=== PATIENT | male | born 1960 | race Two or more races ===

== ENCOUNTER 2017-11-16 19:12 | Inpatient (IN) | payer OTHER ==
[~2017-11-16] VITALS: Ht 177.8 cm; Wt 72.6 kg
[2017-11-16 19:15] VITALS: BP 121/99
[2017-11-16] MEDS ORDERED: Albuterol ud Inhalation HHN ONE (19:15)
[2017-11-16 19:44] LABS: BASOPHILS % (AUTO) 0.9 % (0.0-2.0); EOSINOPHILS % (AUTO) 4.6 % (0.0-3.0); HEMATOCRIT 39.4 % (42.0-52.0); HEMOGLOBIN 12.5 G/DL (14.2-18.0); LYMPHOCYTES % (AUTO) 20.5 % (20.0-45.0); MEAN CORPUSCULAR VOLUME 81 FL (80-99); MONOCYTES % (AUTO) 9.4 % (1.0-10.0); NEUTROPHILS % (AUTO) 64.6 % (45.0-75.0); PLATELET COUNT 188 K/UL (150-450); RED BLOOD COUNT 4.87 M/UL (4.70-6.10); WHITE BLOOD COUNT 4.8 K/UL (4.8-10.8)
[2017-11-16 19:56] LABS: ANION GAP 5 mmol/L (5-15); BLOOD UREA NITROGEN 20 mg/dL (7-18); CALCIUM 8.3 MG/DL (8.5-10.1); CARBON DIOXIDE 27 MMOL/L (21-32); CHLORIDE 101 MMOL/L (98-107); CREATININE 1.2 MG/DL (0.55-1.30); POTASSIUM 4.2 MMOL/L (3.5-5.1); SODIUM 133 MMOL/L (136-145)
--- NOTE | 2017-11-16 20:03 | Emergency Room Report ---
History of Present Illness General Chief Complaint: Shortness of breath Source: Patient, EMS Present Illness HPI Patient is a 57-year-old male who presented after increased difficulty breathing. Patient prior history of congestive heart failure. Patient had recently been hospitalized at [facility]. He was noted to have increased work of breathing. Patient had been having increased chest tightness. The patient onset of symptoms approximately 2 weeks ago. Allergies: Coded Allergies: No Known Allergies (Unverified , 11/16/17) Patient History Past Medical History: see triage record, CHF, HIV Reviewed Nursing Documentation: PMH: Agreed; PSxH: Agreed Nursing Documentation-PMH Hx Cardiac Problems: Yes - chf,hep c, hiv Review of Systems All Other Systems: negative except mentioned in HPI Physical Exam Vital Signs Date Time Temp Pulse Resp B/P (MAP) Pulse Ox O2 Delivery O2 Flow Rate FiO2 11/16/17 19:06 98.4 124 22 124/90 99 Room Air 98.4 11/16/17 19:46 21 Sp02 EP Interpretation: reviewed, normal General Appearance: normal inspection, alert, GCS 15, moderate distress, Chronically Ill Head: atraumatic ENT: normal ENT inspection, hearing grossly normal, normal voice Neck: normal inspection, full range of motion, supple, no bony tend, limited range of motion Respiratory: normal inspection, no respiratory distress, no retraction, wheezing Cardiovascular #1: regular rate, rhythm, edema - 3 + edema Gastrointestinal: normal inspection, normal bowel sounds, non tender, soft, no guarding, no hernia Genitourinary: no CVA tenderness Musculoskeletal: normal inspection, back normal, swelling Neurologic: normal inspection, alert, oriented x3, responsive, speech normal Psychiatric: normal inspection, judgement/insight normal, mood/affect normal Skin: no rash, other - edema Medical Decision Making Diagnostic Impression: Primary Impression: CHF exacerbation Additional Impressions: HIV (human immunodeficiency virus infection) Intraventricular conduction defect ER Course Differential included but was not limited to anemia, pneumonia, pneumothorax, myocardial infarction, pericardial effusion, congestive heart failure, acidosis. Because of complexity of patient's case laboratory testing and imaging studies were ordered. EKG interpreted by me showed sinus tachycardia with right axis deviation and intraventricular block. The patient's laboratory testing was notable for markedly elevated BNP and a negative troponin. Repeat EKG was unchanged from initial EKG. The patient was given IV Lasix as well as breathing treatments. The patient was noted to have improvement in his symptoms. Chest x-ray one view interpreted by me showed cardiomegaly with no definite infiltrates.Dr. Arcadio Rodriguez was contacted for inpatient management due to panel physician Labs Test 11/16/17 19:35 White Blood Count 4.8 K/UL (4.8-10.8) Red Blood Count 4.87 M/UL (4.70-6.10) Hemoglobin 12.5 G/DL (14.2-18.0) Hematocrit 39.4 % (42.0-52.0) Mean Corpuscular Volume 81 FL (80-99) Mean Corpuscular Hemoglobin 25.6 PG (27.0-31.0) Mean Corpuscular Hemoglobin Concent 31.7 G/DL (32.0-36.0) Red Cell Distribution Width 16.0 % (11.6-14.8) Platelet Count 188 K/UL (150-450) Mean Platelet Volume 7.7 FL (6.5-10.1) Neutrophils (%) (Auto) 64.6 % (45.0-75.0) Lymphocytes (%) (Auto) 20.5 % (20.0-45.0) Monocytes (%) (Auto) 9.4 % (1.0-10.0) Eosinophils (%) (Auto) 4.6 % (0.0-3.0) Basophils (%) (Auto) 0.9 % (0.0-2.0) Sodium Level 133 MMOL/L (136-145) Potassium Level 4.2 MMOL/L (3.5-5.1) Chloride Level 101 MMOL/L (98-107) Carbon Dioxide Level 27 MMOL/L (21-32) Anion Gap 5 mmol/L (5-15) Blood Urea Nitrogen 20 mg/dL (7-18) Creatinine 1.2 MG/DL (0.55-1.30) Estimat Glomerular Filtration Rate > 60 mL/min (>60) Glucose Level 126 MG/DL (74-106) Calcium Level 8.3 MG/DL (8.5-10.1) Total Bilirubin 0.6 MG/DL (0.2-1.0) Aspartate Amino Transf (AST/SGOT) 45 U/L (15-37) Alanine Aminotransferase (ALT/SGPT) 42 U/L (12-78) Alkaline Phosphatase 91 U/L (46-116) Total Creatine Kinase 155 U/L (26-308) Creatine Kinase MB 1.3 NG/ML (0.0-3.6) Creatine Kinase MB Relative Index 0.8 Troponin I 0.038 ng/mL (0.000-0.056) Pro-B-Type Natriuretic Peptide 5618 pg/mL (0-125) Total Protein 8.8 G/DL (6.4-8.2) Albumin 2.9 G/DL (3.4-5.0) Globulin 5.9 g/dL Albumin/Globulin Ratio 0.5 (1.0-2.7) Lipase 259 U/L (73-393) EKG Diagnostic Results Rate: tachycardiac Rhythm: NSR ST Segments: no acute changes Last Vital Signs Date Time Temp Pulse Resp B/P (MAP) Pulse Ox O2 Delivery O2 Flow Rate FiO2 11/16/17 19:51 120 24 99 Room Air 21 11/16/17 19:15 97.6 121/99 97.6 Status: unchanged Condition: Stable Raman Smith MD Nov 16, 2017 20:03
[2017-11-16 20:09] LABS: ALANINE AMINOTRANSFERASE 42 U/L (12-78); ALBUMIN 2.9 G/DL (3.4-5.0); ALBUMIN/GLOBULIN RATIO 0.5 (1.0-2.7); ALKALINE PHOSPHATASE 91 U/L (46-116); ASPARTATE AMINO TRANSFERASE 45 U/L (15-37); BILIRUBIN,TOTAL 0.6 MG/DL (0.2-1.0); CKMB 1.3 NG/ML (0.0-3.6); CREATINE KINASE 155 U/L (26-308)
[2017-11-16] MEDS ORDERED: Nitroglycerin Subl 0.4mg tab SL PRN (20:15)
[2017-11-16 20:20] VITALS: BP 134/74
[2017-11-16] MEDS ORDERED: GLUCOSAMINE1000 M1 PO (20:59)
[2017-11-16] MEDS ORDERED: VITAMIN C500 M1 ORAL (20:59)
[2017-11-16] MEDS ORDERED: VITAMIN D1000 UNI1 ORAL (20:59)
[2017-11-16] MEDS ORDERED: CYMBALTA30 MG ORAL (20:59)
[2017-11-16] MEDS ORDERED: MULTIVITAMINS1 EAC2 ORAL (20:59)
[2017-11-16] MEDS ORDERED: PREZCOBIX 8001 EACH PO (20:59)
[2017-11-16] MEDS ORDERED: FUROSEMIDE40 MG ORAL (20:59)
[2017-11-16] MEDS ORDERED: TRIUMEQ PO (21:02)
[2017-11-16] MEDS ORDERED: Aspirin Baby 81mg ORAL ONE (21:30)
[2017-11-16] MEDS ORDERED: Metoprolol 5mg/5ml Inj IVP SCH (21:30)
[2017-11-16] MEDS ORDERED: Miralax 17gm pkt ORAL PRN (21:45)
[2017-11-16] MEDS ORDERED: Albuterol/Ipratropium 3ml neb HHN PRN (21:45)
[2017-11-17 07:53] LABS: ALANINE AMINOTRANSFERASE 37 U/L (12-78); ALBUMIN 2.7 G/DL (3.4-5.0); ALBUMIN/GLOBULIN RATIO 0.5 (1.0-2.7); ALKALINE PHOSPHATASE 87 U/L (46-116); ANION GAP 5 mmol/L (5-15); ASPARTATE AMINO TRANSFERASE 42 U/L (15-37); BILIRUBIN,TOTAL 0.6 MG/DL (0.2-1.0); BLOOD UREA NITROGEN 21 mg/dL (7-18); CALCIUM 8.3 MG/DL (8.5-10.1); CARBON DIOXIDE 28 MMOL/L (21-32); CHLORIDE 103 MMOL/L (98-107); CREATININE 1.3 MG/DL (0.55-1.30); LACTATE DEHYDROGENASE 285 U/L (81-234); POTASSIUM 4.4 MMOL/L (3.5-5.1); SODIUM 136 MMOL/L (136-145)
[2017-11-17 07:53] LABS: HEMATOCRIT 41.3 % (42.0-52.0); HEMOGLOBIN 12.8 G/DL (14.2-18.0); MEAN CORPUSCULAR VOLUME 79 FL (80-99); PLATELET COUNT 183 K/UL (150-450); RED BLOOD COUNT 5.21 M/UL (4.70-6.10); RED CELL DISTRIBUTION WIDTH 16.4 % (11.6-14.8); WHITE BLOOD COUNT 3.1 K/UL (4.8-10.8)
[2017-11-17] MEDS: DULoxetine 30mg cap ORAL SCH (08:19)
[2017-11-17] MEDS: Aspirin Baby 81mg ORAL SCH (08:20)
[2017-11-17] MEDS: Heparin 5000 units/ml inj SUBQ SCH ×2 (08:21→20:12)
[2017-11-17 08:22] LABS: PHOSPHORUS 3.5 MG/DL (2.5-4.9)
--- NOTE | 2017-11-17 10:36 | Diagnostic Imaging Report ---
Indication: Dyspnea Comparison: None A single view chest radiograph was obtained. Findings: Cardiomediastinal appearance is slightly prominent but may be within normal limits for age. The lungs are clear. Pulmonary vascularity is appropriate. The diaphragmatic contour is smooth and costophrenic angles are sharp. No pleural effusions are identified. The bones are osteopenic. Impression: No acute findings
--- NOTE | 2017-11-17 11:47 | Consultation ---
History of Present Illness General Date patient seen: Nov 17, 2017 Chief Complaint: Upper Respiratory Illness Present Illness HPI 57-year-old male with hx of CHF, HIV, Hep C presented to [place] ER with CC of difficulty breathing. Patient had recently been hospitalized at [facility]. Patient had been having increased chest tightness. The patient onset of symptoms approximately 2 weeks ago. Pt is admitted to telemetry for further treatment. Allergies: Coded Allergies: No Known Allergies (Unverified , 11/16/17) Medication History Scheduled Ascorbic Acid* (Vitamin C*), 500 MG ORAL DAILY, (Reported) Cholecalciferol (Vitamin D3)* (Vitamin D*), 1,000 UNIT ORAL DAILY, (Reported) Darunavir/Cobicistat (Prezcobix 800 mg-150 mg Tablet), 1 EACH PO DAILY, ( Reported) Duloxetine Hcl* (Cymbalta*), 30 MG ORAL DAILY, (Reported) Furosemide* (Lasix*), 40 MG ORAL TWICE A DAY, (Reported) Glucosamine Sulfate 2KCL (Glucosamine), 1,000 MG PO DAILY, (Reported) Multivitamins* (Multivitamins*), 1 TAB ORAL DAILY, (Reported) [Triumeq], 1 TAB PO DAILY, (Reported) Patient History Healthcare decision maker sister Resuscitation status Full Code Advanced Directive on File Review of Systems Constitutional: Reports: malaise, weakness Respiratory: Reports: shortness of breath All Other Systems: negative except mentioned in HPI Physical Exam General Appearance: cachetic Lines, tubes and drains: peripheral HEENT: normocephalic, atraumatic Neck: non-tender, normal alignment Respiratory/Chest: chest wall non-tender, lungs clear Breasts: no masses Cardiovascular/Chest: normal peripheral pulses, normal rate Abdomen: normal bowel sounds, non tender Genitourinary/Rectal: normal genital exam Extremities: normal range of motion Neurologic: patcher helper II-XII grossly normal Last 24 Hour Vital Signs Date Time Temp Pulse Resp B/P (MAP) Pulse Ox O2 Delivery O2 Flow Rate FiO2 11/17/17 09:00 Room Air 11/17/17 07:09 109 20 Room Air 21 11/17/17 04:00 110 11/17/17 00:39 Room Air 11/17/17 00:00 107 11/16/17 22:04 97.6 120 20 114/83 100 Room Air 21 97.6 11/16/17 21:46 119 114/83 11/16/17 20:23 134/75 11/16/17 20:20 120 20 134/74 100 Room Air 11/16/17 20:02 120 21 99 Room Air 21 11/16/17 19:51 120 24 99 Room Air 21 11/16/17 19:46 120 24 Room Air 21 11/16/17 19:15 97.6 122 19 121/99 94 Room Air 97.6 11/16/17 19:15 122 19 Room Air 11/16/17 19:06 98.4 124 22 124/90 99 Room Air 98.4 Intake and Output 11/16/17 11/17/17 19:00 07:00 Output Total 1100 ml Balance -1100 ml Output Urine Total 1100 ml # Voids 6 Laboratory Tests Test 11/16/17 19:35 11/17/17 04:00 11/17/17 07:05 White Blood Count 4.8 K/UL (4.8-10.8) 3.1 K/UL (4.8-10.8) L Red Blood Count 4.87 M/UL (4.70-6.10) 5.21 M/UL (4.70-6.10) Hemoglobin 12.5 G/DL (14.2-18.0) L 12.8 G/DL (14.2-18.0) L Hematocrit 39.4 % (42.0-52.0) L 41.3 % (42.0-52.0) L Mean Corpuscular Volume 81 FL (80-99) 79 FL (80-99) L Mean Corpuscular Hemoglobin 25.6 PG (27.0-31.0) L 24.6 PG (27.0-31.0) L Mean Corpuscular Hemoglobin Concent 31.7 G/DL (32.0-36.0) L 31.1 G/DL (32.0-36.0) L Red Cell Distribution Width 16.0 % (11.6-14.8) H 16.4 % (11.6-14.8) H Platelet Count 188 K/UL (150-450) 183 K/UL (150-450) Mean Platelet Volume 7.7 FL (6.5-10.1) 9.6 FL (6.5-10.1) Neutrophils (%) (Auto) 64.6 % (45.0-75.0) % (45.0-75.0) Lymphocytes (%) (Auto) 20.5 % (20.0-45.0) % (20.0-45.0) Monocytes (%) (Auto) 9.4 % (1.0-10.0) % (1.0-10.0) Eosinophils (%) (Auto) 4.6 % (0.0-3.0) H % (0.0-3.0) Basophils (%) (Auto) 0.9 % (0.0-2.0) % (0.0-2.0) Sodium Level 133 MMOL/L (136-145) L 136 MMOL/L (136-145) Potassium Level 4.2 MMOL/L (3.5-5.1) 4.4 MMOL/L (3.5-5.1) Chloride Level 101 MMOL/L (98-107) 103 MMOL/L (98-107) Carbon Dioxide Level 27 MMOL/L (21-32) 28 MMOL/L (21-32) Anion Gap 5 mmol/L (5-15) 5 mmol/L (5-15) Blood Urea Nitrogen 20 mg/dL (7-18) H 21 mg/dL (7-18) H Creatinine 1.2 MG/DL (0.55-1.30) 1.3 MG/DL (0.55-1.30) Estimat Glomerular Filtration Rate > 60 mL/min (>60) 56.5 mL/min (>60) Glucose Level 126 MG/DL (74-106) H 96 MG/DL (74-106) Calcium Level 8.3 MG/DL (8.5-10.1) L 8.3 MG/DL (8.5-10.1) L Total Bilirubin 0.6 MG/DL (0.2-1.0) 0.6 MG/DL (0.2-1.0) Aspartate Amino Transf (AST/SGOT) 45 U/L (15-37) H 42 U/L (15-37) H Alanine Aminotransferase (ALT/SGPT) 42 U/L (12-78) 37 U/L (12-78) Alkaline Phosphatase 91 U/L (46-116) 87 U/L (46-116) Total Creatine Kinase 155 U/L (26-308) Creatine Kinase MB 1.3 NG/ML (0.0-3.6) Creatine Kinase MB Relative Index 0.8 Troponin I 0.038 ng/mL (0.000-0.056) 0.017 ng/mL (0.000-0.056) Pro-B-Type Natriuretic Peptide 5618 pg/mL (0-125) H 5299 pg/mL (0-125) H Total Protein 8.8 G/DL (6.4-8.2) H 8.1 G/DL (6.4-8.2) Albumin 2.9 G/DL (3.4-5.0) L 2.7 G/DL (3.4-5.0) L Globulin 5.9 g/dL 5.4 g/dL Albumin/Globulin Ratio 0.5 (1.0-2.7) L 0.5 (1.0-2.7) L Lipase 259 U/L (73-393) Differential Total Cells Counted 100 Neutrophils % (Manual) 50 % (45-75) Lymphocytes % (Manual) 30 % (20-45) Monocytes % (Manual) 13 % (1-10) H Eosinophils % (Manual) 6 % (0-3) H Basophils % (Manual) 1 % (0-2) Band Neutrophils 0 % (0-8) Platelet Estimate Adequate Platelet Morphology Normal Red Blood Cell Morphology Anisocytosis 1+ Microcytosis 1+ Phosphorus Level 3.5 MG/DL (2.5-4.9) Magnesium Level 1.8 MG/DL (1.8-2.4) Lactate Dehydrogenase 285 U/L (81-234) H Height (Feet): 5 Height (Inches): 10.00 Weight (Pounds): 160 Medications Current Medications Medications (Trade) Dose Ordered Sig/Sidney Route PRN Reason Start Time Stop Time Status Last Admin Dose Admin Acetaminophen (Tylenol) 650 mg Q4H PRN ORAL Fever 11/16/17 21:41 12/16/17 21:40 11/17/17 04:02 Albuterol/ Ipratropium (Albuterol/ Ipratropium) 3 ml Q4H PRN HHN Shortness of Breath 11/16/17 21:45 11/21/17 21:44 Aspirin (ASA) 81 mg DAILY ORAL 11/17/17 09:00 12/17/17 08:59 11/17/17 08:20 Dextrose (Dextrose 50%) 25 ml Q30M PRN IV Hypoglycemia 11/16/17 21:45 12/16/17 21:44 Dextrose (Dextrose 50%) 50 ml Q30M PRN IV Hypoglycemia 11/16/17 21:45 12/16/17 21:44 Diphenhydramine HCl (Benadryl) 25 mg Q6H PRN ORAL Itching 11/17/17 08:00 12/17/17 07:59 Duloxetine HCl (Cymbalta) 30 mg DAILY ORAL 11/17/17 09:00 12/17/17 08:59 11/17/17 08:19 Furosemide (Lasix) 40 mg BID IV 11/17/17 09:00 12/16/17 21:59 11/17/17 08:20 Heparin Sodium (Porcine) (Heparin 5000 units/ml) 5,000 units EVERY 12 HOURS SUBQ 11/17/17 09:00 12/17/17 08:59 Metoprolol Tartrate (Lopressor) 5 mg Q5MIN X 3 IVP 11/16/17 21:30 12/16/17 21:29 11/16/17 21:46 Nitroglycerin (Ntg) 0.4 mg Q5M PRN SL Prn Chest Pain 11/16/17 20:15 12/16/17 20:14 11/16/17 20:23 Ondansetron HCl (Zofran) 4 mg Q6H PRN IVP Nausea & Vomiting 11/16/17 21:41 12/16/17 21:40 Polyethylene Glycol (Miralax) 17 gm DAILYPRN PRN ORAL Constipation 11/16/17 21:45 12/16/17 21:44 Temazepam (Restoril) 15 mg HSPRN PRN ORAL Insomnia 11/16/17 21:41 11/23/17 21:40 11/17/17 00:26 Assessment/Plan Problem List: (1) CHF exacerbation ICD Codes: I50.9 - Heart failure, unspecified SNOMED: 07707506 (2) Peripheral edema ICD Codes: R60.9 - Edema, unspecified SNOMED: 670400012 (3) HIV (human immunodeficiency virus infection) ICD Codes: B20 - Human immunodeficiency virus [HIV] disease SNOMED: 81391998 (4) Hepatitis C ICD Codes: B19.20 - Unspecified viral hepatitis C without hepatic coma SNOMED: 09585149 Assessment/Plan echo diuretics venous doppler of legs check BNP ID to see for HIV meds Abdi oTdd MD Nov 17, 2017 11:47
--- NOTE | 2017-11-17 12:28 | Consultation ---
History of Present Illness General Date patient seen: Nov 17, 2017 Chief Complaint: Upper Respiratory Illness Present Illness HPI 57 y/o M with hx of CHF, HIV, Hep C presents to ED on 11/16 with increasing SOB and chest tightness; onset 2 weeks. Of note, recently admitted to [facility]. Afebrile no leukocytosis ID consulted for HIV management. Per patient, dx with HIV in 1993. Endorses his VL remains inthe 200s. He is not sure of his CD4. Takes Triumeq and Prezcobix- I confirmed this regimen with his pharmacy: [facility] in [place]. Allergies: Coded Allergies: No Known Allergies (Unverified , 11/16/17) Medication History Scheduled Ascorbic Acid* (Vitamin C*), 500 MG ORAL DAILY, (Reported) Cholecalciferol (Vitamin D3)* (Vitamin D*), 1,000 UNIT ORAL DAILY, (Reported) Darunavir/Cobicistat (Prezcobix 800 mg-150 mg Tablet), 1 EACH PO DAILY, ( Reported) Duloxetine Hcl* (Cymbalta*), 30 MG ORAL DAILY, (Reported) Furosemide* (Lasix*), 40 MG ORAL TWICE A DAY, (Reported) Glucosamine Sulfate 2KCL (Glucosamine), 1,000 MG PO DAILY, (Reported) Multivitamins* (Multivitamins*), 1 TAB ORAL DAILY, (Reported) [Triumeq], 1 TAB PO DAILY, (Reported) Patient History Healthcare decision maker sister Resuscitation status Full Code Advanced Directive on File Patient History Narrative Pmhx: as above Shx: reviewed Fhx: non contributory Review of Systems All Other Systems: negative except mentioned in HPI Physical Exam Physical Exam Narrative General Appearance: cachetic Lines, tubes and drains: peripheral HEENT: normocephalic, atraumatic Neck: non-tender, normal alignment Respiratory/Chest: chest wall non-tender, lungs clear Cardiovascular/Chest: normal peripheral pulses, normal rate Abdomen: normal bowel sounds, non tender Genitourinary/Rectal: normal genital exam Extremities: normal range of motion Neurologic: car oiler II-XII grossly normal Last 24 Hour Vital Signs Date Time Temp Pulse Resp B/P (MAP) Pulse Ox O2 Delivery O2 Flow Rate FiO2 11/17/17 09:00 Room Air 11/17/17 07:09 109 20 Room Air 21 11/17/17 04:00 110 11/17/17 00:39 Room Air 11/17/17 00:00 107 11/16/17 22:04 97.6 120 20 114/83 100 Room Air 21 97.6 11/16/17 21:46 119 114/83 11/16/17 20:23 134/75 11/16/17 20:20 120 20 134/74 100 Room Air 11/16/17 20:02 120 21 99 Room Air 21 11/16/17 19:51 120 24 99 Room Air 21 11/16/17 19:46 120 24 Room Air 21 11/16/17 19:15 97.6 122 19 121/99 94 Room Air 97.6 11/16/17 19:15 122 19 Room Air 11/16/17 19:06 98.4 124 22 124/90 99 Room Air 98.4 Intake and Output 11/16/17 11/17/17 19:00 07:00 Output Total 1100 ml Balance -1100 ml Output Urine Total 1100 ml # Voids 6 Laboratory Tests Test 11/16/17 19:35 11/17/17 04:00 11/17/17 07:05 White Blood Count 4.8 K/UL (4.8-10.8) 3.1 K/UL (4.8-10.8) L Red Blood Count 4.87 M/UL (4.70-6.10) 5.21 M/UL (4.70-6.10) Hemoglobin 12.5 G/DL (14.2-18.0) L 12.8 G/DL (14.2-18.0) L Hematocrit 39.4 % (42.0-52.0) L 41.3 % (42.0-52.0) L Mean Corpuscular Volume 81 FL (80-99) 79 FL (80-99) L Mean Corpuscular Hemoglobin 25.6 PG (27.0-31.0) L 24.6 PG (27.0-31.0) L Mean Corpuscular Hemoglobin Concent 31.7 G/DL (32.0-36.0) L 31.1 G/DL (32.0-36.0) L Red Cell Distribution Width 16.0 % (11.6-14.8) H 16.4 % (11.6-14.8) H Platelet Count 188 K/UL (150-450) 183 K/UL (150-450) Mean Platelet Volume 7.7 FL (6.5-10.1) 9.6 FL (6.5-10.1) Neutrophils (%) (Auto) 64.6 % (45.0-75.0) % (45.0-75.0) Lymphocytes (%) (Auto) 20.5 % (20.0-45.0) % (20.0-45.0) Monocytes (%) (Auto) 9.4 % (1.0-10.0) % (1.0-10.0) Eosinophils (%) (Auto) 4.6 % (0.0-3.0) H % (0.0-3.0) Basophils (%) (Auto) 0.9 % (0.0-2.0) % (0.0-2.0) Sodium Level 133 MMOL/L (136-145) L 136 MMOL/L (136-145) Potassium Level 4.2 MMOL/L (3.5-5.1) 4.4 MMOL/L (3.5-5.1) Chloride Level 101 MMOL/L (98-107) 103 MMOL/L (98-107) Carbon Dioxide Level 27 MMOL/L (21-32) 28 MMOL/L (21-32) Anion Gap 5 mmol/L (5-15) 5 mmol/L (5-15) Blood Urea Nitrogen 20 mg/dL (7-18) H 21 mg/dL (7-18) H Creatinine 1.2 MG/DL (0.55-1.30) 1.3 MG/DL (0.55-1.30) Estimat Glomerular Filtration Rate > 60 mL/min (>60) 56.5 mL/min (>60) Glucose Level 126 MG/DL (74-106) H 96 MG/DL (74-106) Calcium Level 8.3 MG/DL (8.5-10.1) L 8.3 MG/DL (8.5-10.1) L Total Bilirubin 0.6 MG/DL (0.2-1.0) 0.6 MG/DL (0.2-1.0) Aspartate Amino Transf (AST/SGOT) 45 U/L (15-37) H 42 U/L (15-37) H Alanine Aminotransferase (ALT/SGPT) 42 U/L (12-78) 37 U/L (12-78) Alkaline Phosphatase 91 U/L (46-116) 87 U/L (46-116) Total Creatine Kinase 155 U/L (26-308) Creatine Kinase MB 1.3 NG/ML (0.0-3.6) Creatine Kinase MB Relative Index 0.8 Troponin I 0.038 ng/mL (0.000-0.056) 0.017 ng/mL (0.000-0.056) Pro-B-Type Natriuretic Peptide 5618 pg/mL (0-125) H 5299 pg/mL (0-125) H Total Protein 8.8 G/DL (6.4-8.2) H 8.1 G/DL (6.4-8.2) Albumin 2.9 G/DL (3.4-5.0) L 2.7 G/DL (3.4-5.0) L Globulin 5.9 g/dL 5.4 g/dL Albumin/Globulin Ratio 0.5 (1.0-2.7) L 0.5 (1.0-2.7) L Lipase 259 U/L (73-393) Differential Total Cells Counted 100 Neutrophils % (Manual) 50 % (45-75) Lymphocytes % (Manual) 30 % (20-45) Monocytes % (Manual) 13 % (1-10) H Eosinophils % (Manual) 6 % (0-3) H Basophils % (Manual) 1 % (0-2) Band Neutrophils 0 % (0-8) Platelet Estimate Adequate Platelet Morphology Normal Red Blood Cell Morphology Anisocytosis 1+ Microcytosis 1+ Phosphorus Level 3.5 MG/DL (2.5-4.9) Magnesium Level 1.8 MG/DL (1.8-2.4) Lactate Dehydrogenase 285 U/L (81-234) H Hepatitis A IgM Antibody Pending Hepatitis B Surface Antigen Pending Hepatitis B Core IgM Antibody Pending Hepatitis C Antibody Pending Height (Feet): 5 Height (Inches): 10.00 Weight (Pounds): 160 Medications Current Medications Medications (Trade) Dose Ordered Sig/Sidney Route PRN Reason Start Time Stop Time Status Last Admin Dose Admin Acetaminophen (Tylenol) 650 mg Q4H PRN ORAL Fever 11/16/17 21:41 12/16/17 21:40 11/17/17 04:02 Albuterol/ Ipratropium (Albuterol/ Ipratropium) 3 ml Q4H PRN HHN Shortness of Breath 11/16/17 21:45 11/21/17 21:44 Aspirin (ASA) 81 mg DAILY ORAL 11/17/17 09:00 12/17/17 08:59 11/17/17 08:20 Dextrose (Dextrose 50%) 25 ml Q30M PRN IV Hypoglycemia 11/16/17 21:45 12/16/17 21:44 Dextrose (Dextrose 50%) 50 ml Q30M PRN IV Hypoglycemia 11/16/17 21:45 12/16/17 21:44 Diphenhydramine HCl (Benadryl) 25 mg Q6H PRN ORAL Itching 11/17/17 08:00 12/17/17 07:59 Duloxetine HCl (Cymbalta) 30 mg DAILY ORAL 11/17/17 09:00 12/17/17 08:59 11/17/17 08:19 Furosemide (Lasix) 40 mg BID IV 11/17/17 09:00 12/16/17 21:59 11/17/17 08:20 Heparin Sodium (Porcine) (Heparin 5000 units/ml) 5,000 units EVERY 12 HOURS SUBQ 11/17/17 09:00 12/17/17 08:59 Metoprolol Tartrate (Lopressor) 5 mg Q5MIN X 3 IVP 11/16/17 21:30 12/16/17 21:29 11/16/17 21:46 Nitroglycerin (Ntg) 0.4 mg Q5M PRN SL Prn Chest Pain 11/16/17 20:15 12/16/17 20:14 11/16/17 20:23 Ondansetron HCl (Zofran) 4 mg Q6H PRN IVP Nausea & Vomiting 11/16/17 21:41 12/16/17 21:40 Polyethylene Glycol (Miralax) 17 gm DAILYPRN PRN ORAL Constipation 11/16/17 21:45 12/16/17 21:44 Temazepam (Restoril) 15 mg HSPRN PRN ORAL Insomnia 11/16/17 21:41 11/23/17 21:40 11/17/17 00:26 Assessment/Plan Assessment/Plan Abx: None Assessment: SOB Chest pain -CXR: no acute findings -trops neg x2 Afebrile No leukocytosis HIV (dx 1993)- admits compliance with Regimen -per pt VL ~200s (never undetected), CD4 unknown CHF Hep C Plan: -Resume home Triumeq and Prezcobix -f/u cx -Monitor CBC/CMP, temperatures -CD4, VL Thank you for this consultation. Will continue to follow along with you. Discussed with Shaina Hartley M.D. Nov 17, 2017 12:28
[2017-11-17] MEDS: Sucralfate 1gm tab ORAL SCH (17:18)
--- NOTE | 2017-11-17 18:37 | History & Physical ---
History and Physical History & Physicial Dictated for Int Med - Dr Rodriguez no.[id number] Douglas Anthony MD Nov 17, 2017 18:37
[2017-11-17 20:00] VITALS: BP 109/74
--- NOTE | 2017-11-17 23:30 | History and Physical Report ---
DATE OF ADMISSION: 11/16/2017 CHIEF COMPLAINT: The patient is a 57-year-old male, who presents with complaint of shortness of breath. HISTORY OF PRESENT ILLNESS: The patient was admitted to [facility] two weeks ago. The patient has essentially been living on the streets since that time. The patient states he last evening. The patient began to experience cough and shortness of breath. The patient presented to [facility] Emergency Room. The patient was found to have elevated BNP. The patient is admitted for shortness of breath and acute exacerbation of congestive heart failure. REVIEW OF SYSTEMS: CONSTITUTIONAL: The patient denies weight loss or weight gain. The patient denies fevers or chills. HEENT: The patient denies ear or throat pain. The patient denies headache. CARDIOVASCULAR: The patient denies palpitations or chest pain. The patient complains of shortness of breath as above. The patient complains of nonproductive cough. ABDOMEN: The patient denies nausea, vomiting, diarrhea, or constipation. GENITOURINARY: The patient denies dysuria or increased frequency of urination. NEUROMUSCULAR: The patient denies seizures or generalized weakness. PAST MEDICAL HISTORY: Significant for: 1. Congestive heart failure. 2. HIV, which was diagnosed in 1983. 3. History of hepatitis C. PAST SURGICAL HISTORY: Significant for hemorrhoidectomy. CURRENT MEDICATIONS: 1. Prezcobix one tablet p.o. daily. 2. Cymbalta 30 mg p.o. daily. 3. Lasix 40 mg p.o. daily. 4. Multivitamin p.o. daily. 5. Triumeq one tablet p.o. daily. ALLERGIES: Sulfa. SOCIAL HISTORY: The patient is single and lives alone. The patient denies tobacco use having quit six years ago. The patient denies alcohol use. PHYSICAL EXAMINATION: VITAL SIGNS: Temperature 97.6, respirations 20, pulse elevated at 128, and blood pressure 114/83. GENERAL: The patient is a well-developed and well-nourished male, in no apparent distress. HEENT: Eyes, pupils are equal and responsive to light and accommodation. Extraocular movements are intact. NECK: Supple without lymphadenopathy. CHEST: Lungs are clear to auscultation bilaterally with few crackles in bilateral bases. ABDOMEN: Soft, nontender, and nondistended. Positive bowel sounds. CARDIOVASCULAR: Tachycardic. Regular rhythm. S1 and S2 normal without murmurs, rubs, or gallops. NEUROMUSCULAR: Cranial nerves II through XII are grossly intact without focal deficits. Motor strength is 5/5 bilaterally. Deep tendon reflexes are 2+ plantar. EXTREMITIES: Negative for clubbing, cyanosis, or edema. LABORATORY STUDIES: WBC 4.8, hemoglobin 12.5, hematocrit 39.4, and platelets 188,000. Sodium 132, potassium 4.2, chloride 101, CO2 20, BUN 1.2, and glucose 126. BNP elevated at 5618. Troponin level is pending. ASSESSMENT: This is a 57-year-old male: 1. Shortness of breath. 2. Cough. 3. Acute on chronic exacerbation of congestive heart failure. 4. Human immunodeficiency virus. 5. Hepatitis C. PLAN: 1. Shortness of breath/congestive heart failure. Cardiology consultation obtained with Dr. Bony Cifuentes. Serial BNPs will be performed. The patient is currently receiving Lasix. 2. HIV. An Infectious Disease consultation has been obtained with Dr. Bello. Continue HAART as above. 3. Hepatitis C . Douglas Anthony M.D. DR: CARMENCITA JOB#: [id number] CC:
[2017-11-18 04:00] VITALS: BP 120/92
--- NOTE | 2017-11-18 05:27 | Pulmonology Progress Note ---
Assessment/Plan Problems: (1) CHF exacerbation (2) Peripheral edema (3) HIV (human immunodeficiency virus infection) (4) Hepatitis C Assessment/Plan diuretics check echo optimize cardiac meds cardiology evaluation f/u ID recommendations dvt prophylaxis symptomatic treatment psych to see. Subjective ROS Limited/Unobtainable: No Constitutional: Reports: no symptoms HEENT: Repors: no symptoms Respiratory: Reports: no symptoms Allergies: Coded Allergies: No Known Allergies (Unverified , 11/16/17) Objective Last 24 Hour Vital Signs Date Time Temp Pulse Resp B/P (MAP) Pulse Ox O2 Delivery O2 Flow Rate FiO2 11/18/17 03:37 110 11/17/17 23:58 108 11/17/17 21:00 Room Air 11/17/17 20:00 98.2 107 20 109/74 (86) 100 98.2 11/17/17 19:23 110 11/17/17 19:09 103 20 Room Air 21 11/17/17 16:00 102 11/17/17 12:00 99 11/17/17 09:00 Room Air 11/17/17 08:00 98 11/17/17 07:09 109 20 Room Air 21 Intake and Output 11/17/17 11/18/17 19:00 07:00 Intake Total 780 ml Balance 780 ml Intake Oral 780 ml # Voids 3 # Bowel Movements 1 Objective General Appearance: WD/WN HEENT: normocephalic, atraumatic Respiratory/Chest: chest wall non-tender, lungs clear, normal breath sounds Cardiovascular: normal peripheral pulses, normal rate, regular rhythm Abdomen: normal bowel sounds, no organomegaly Extremities: no clubbing Skin: no lesions Laboratory Tests 11/17/17 07:05: Sodium Level 136, Potassium Level 4.4, Chloride Level 103, Carbon Dioxide Level 28, Anion Gap 5, Blood Urea Nitrogen 21H, Creatinine 1.3, Estimat Glomerular Filtration Rate 56.5, Glucose Level 96, Calcium Level 8.3L, Phosphorus Level 3.5 , Magnesium Level 1.8, Total Bilirubin 0.6, Aspartate Amino Transf (AST/SGOT) 42H, Alanine Aminotransferase (ALT/SGPT) 37, Alkaline Phosphatase 87, Lactate Dehydrogenase 285H, Troponin I 0.017, Pro-B-Type Natriuretic Peptide 5299H, Total Protein 8.1, Albumin 2.7L, Globulin 5.4, Albumin/Globulin Ratio 0.5L, Hepatitis A IgM Antibody [Pending], Hepatitis B Surface Antigen [Pending], Hepatitis B Core IgM Antibody [Pending], Hepatitis C Antibody [Pending] 11/17/17 15:28: Stool Occult Blood [Pending] Current Medications Medications (Trade) Dose Ordered Sig/Sidney Route PRN Reason Start Time Stop Time Status Last Admin Dose Admin Acetaminophen (Tylenol) 650 mg Q4H PRN ORAL Fever 11/16/17 21:41 12/16/17 21:40 11/18/17 05:20 Al Hydroxide/Mg Hydroxide (Mylanta) 30 ml Q6H PRN ORAL heartburn 11/17/17 15:45 12/17/17 15:44 11/18/17 05:05 Albuterol/ Ipratropium (Albuterol/ Ipratropium) 3 ml Q4H PRN HHN Shortness of Breath 11/16/17 21:45 11/21/17 21:44 Aspirin (ASA) 81 mg DAILY ORAL 11/17/17 09:00 12/17/17 08:59 11/17/17 08:20 Dextrose (Dextrose 50%) 25 ml Q30M PRN IV Hypoglycemia 11/16/17 21:45 12/16/17 21:44 Dextrose (Dextrose 50%) 50 ml Q30M PRN IV Hypoglycemia 11/16/17 21:45 12/16/17 21:44 Diphenhydramine HCl (Benadryl) 25 mg Q6H PRN ORAL Itching 11/17/17 08:00 12/17/17 07:59 11/18/17 01:31 Duloxetine HCl (Cymbalta) 30 mg DAILY ORAL 11/17/17 09:00 12/17/17 08:59 11/17/17 08:19 Furosemide (Lasix) 40 mg BID IV 11/17/17 09:00 12/16/17 21:59 11/17/17 17:18 Heparin Sodium (Porcine) (Heparin 5000 units/ml) 5,000 units EVERY 12 HOURS SUBQ 11/17/17 09:00 12/17/17 08:59 Metoprolol Tartrate (Lopressor) 5 mg Q5MIN X 3 IVP 11/16/17 21:30 12/16/17 21:29 11/16/17 21:46 Nitroglycerin (Ntg) 0.4 mg Q5M PRN SL Prn Chest Pain 11/16/17 20:15 12/16/17 20:14 11/16/17 20:23 Non-Formulary Medication (Non-Formulary Med) 1 ea DAILY ORAL 11/17/17 14:00 12/17/17 13:59 UNV Ondansetron HCl (Zofran) 4 mg Q6H PRN IVP Nausea & Vomiting 11/16/17 21:41 12/16/17 21:40 Polyethylene Glycol (Miralax) 17 gm DAILYPRN PRN ORAL Constipation 11/16/17 21:45 12/16/17 21:44 Sucralfate (Carafate) 1 gm TID ORAL 11/17/17 18:00 12/17/17 17:59 11/17/17 17:18 Temazepam (Restoril) 15 mg HSPRN PRN ORAL Insomnia 11/16/17 21:41 11/23/17 21:40 11/17/17 21:30 Abdi Todd MD Nov 18, 2017 05:27
[2017-11-18 06:18] VITALS: BP 114/78
[2017-11-18] MEDS: Morphine Sulfate 2mg/ml Inj IVP PRN ×3 (06:23→23:31)
--- NOTE | 2017-11-18 07:38 | Infectious Diseases Prog Note ---
Assessment/Plan Assessment/Plan Abx: None Assessment: SOB Chest pain -CXR: no acute findings -trops neg x2 Afebrile No leukocytosis HIV (dx 1993)- admits compliance with Regimen -per pt VL ~200s (never undetected), CD4 unknown CHF Hep C Plan: -Continue home Triumeq and Prezcobix -f/u cx -Monitor CBC/CMP, temperatures -CD4, VL Will continue to follow along with you. Subjective Allergies: Coded Allergies: No Known Allergies (Unverified , 11/16/17) Subjective Patient afebrile No Leukocytosis YESENIA Objective Vital Signs Last 24 Hour Vital Signs Date Time Temp Pulse Resp B/P (MAP) Pulse Ox O2 Delivery O2 Flow Rate FiO2 11/18/17 06:18 112 114/78 (90) 100 11/18/17 04:00 98.2 110 20 120/92 (101) 98 98.2 11/18/17 03:37 110 11/17/17 23:58 108 11/17/17 21:00 Room Air 11/17/17 20:00 98.2 107 20 109/74 (86) 100 98.2 11/17/17 19:23 110 11/17/17 19:09 103 20 Room Air 21 11/17/17 16:00 102 11/17/17 12:00 99 11/17/17 09:00 Room Air 11/17/17 08:00 98 Height (Feet): 5 Height (Inches): 10.00 Weight (Pounds): 160 Objective General Appearance: cachetic, NAD HEENT: normocephalic, atraumatic, MMM, EOMI Respiratory/Chest: chest wall non-tender, lungs clear with no wheezing Cardiovascular/Chest: normal peripheral pulses, normal rate Abdomen: normal bowel sounds, non tender, non-distended Extremities: normal range of motion Laboratory Tests Test 11/17/17 15:28 11/18/17 06:35 Stool Occult Blood Pending White Blood Count Pending Red Blood Count Pending Hemoglobin Pending Hematocrit Pending Mean Corpuscular Volume Pending Mean Corpuscular Hemoglobin Pending Mean Corpuscular Hemoglobin Concent Pending Red Cell Distribution Width Pending Platelet Count Pending Mean Platelet Volume Pending Neutrophils (%) (Auto) Pending Lymphocytes (%) (Auto) Pending Monocytes (%) (Auto) Pending Eosinophils (%) (Auto) Pending Basophils (%) (Auto) Pending Lymphocytes Pending Erythrocyte Sedimentation Rate Pending Reticulocyte Count Pending Prothrombin Time Pending Prothromb Time International Ratio Pending Activated Partial Thromboplast Time Pending Sodium Level Pending Potassium Level Pending Chloride Level Pending Carbon Dioxide Level Pending Blood Urea Nitrogen Pending Creatinine Pending Estimat Glomerular Filtration Rate Pending Glucose Level Pending Calcium Level Pending Iron Level Pending Unsaturated Iron Binding Pending Total Bilirubin Pending Aspartate Amino Transf (AST/SGOT) Pending Alanine Aminotransferase (ALT/SGPT) Pending Alkaline Phosphatase Pending Lactate Dehydrogenase Pending Pro-B-Type Natriuretic Peptide Pending Total Protein Pending Albumin Pending Globulin Pending Carcinoembryonic Antigen Pending Vitamin B12 Level Pending Folate Pending Percent CD3 Cells Pending Absolute CD3 Count Pending Percent CD4 Cells Pending Absolute CD4 Count Pending T-Lymphocyte CD4/CD8 Ratio Pending Percent CD8 Cells Pending Absolute CD8 Count Pending HIV-1 RNA (PCR) log10 Value Pending HIV-1 RNA Ultraquantitative (PCR) Pending Current Medications Medications (Trade) Dose Ordered Sig/Sidney Route PRN Reason Start Time Stop Time Status Last Admin Dose Admin Acetaminophen (Tylenol) 650 mg Q4H PRN ORAL Fever 11/16/17 21:41 12/16/17 21:40 11/18/17 05:20 Al Hydroxide/Mg Hydroxide (Mylanta) 30 ml Q6H PRN ORAL heartburn 11/17/17 15:45 12/17/17 15:44 11/18/17 05:05 Albuterol/ Ipratropium (Albuterol/ Ipratropium) 3 ml Q4H PRN HHN Shortness of Breath 11/16/17 21:45 11/21/17 21:44 Aspirin (ASA) 81 mg DAILY ORAL 11/17/17 09:00 12/17/17 08:59 11/17/17 08:20 Dextrose (Dextrose 50%) 25 ml Q30M PRN IV Hypoglycemia 11/16/17 21:45 12/16/17 21:44 Dextrose (Dextrose 50%) 50 ml Q30M PRN IV Hypoglycemia 11/16/17 21:45 12/16/17 21:44 Diphenhydramine HCl (Benadryl) 25 mg Q6H PRN ORAL Itching 11/17/17 08:00 12/17/17 07:59 11/18/17 01:31 Duloxetine HCl (Cymbalta) 30 mg DAILY ORAL 11/17/17 09:00 12/17/17 08:59 11/17/17 08:19 Furosemide (Lasix) 40 mg BID IV 11/17/17 09:00 12/16/17 21:59 11/17/17 17:18 Heparin Sodium (Porcine) (Heparin 5000 units/ml) 5,000 units EVERY 12 HOURS SUBQ 11/17/17 09:00 12/17/17 08:59 Metoprolol Tartrate (Lopressor) 5 mg Q5MIN X 3 IVP 11/16/17 21:30 12/16/17 21:29 11/16/17 21:46 Morphine Sulfate (Morphine Sulfate) 2 mg EVERY 4 HOURS PRN IVP pain 11/18/17 05:30 11/25/17 05:29 11/18/17 06:23 Nitroglycerin (Ntg) 0.4 mg Q5M PRN SL Prn Chest Pain 11/16/17 20:15 12/16/17 20:14 11/16/17 20:23 Non-Formulary Medication (Non-Formulary Med) 1 ea DAILY ORAL 11/17/17 14:00 12/17/17 13:59 UNV Ondansetron HCl (Zofran) 4 mg Q6H PRN IVP Nausea & Vomiting 11/16/17 21:41 12/16/17 21:40 Polyethylene Glycol (Miralax) 17 gm DAILYPRN PRN ORAL Constipation 11/16/17 21:45 12/16/17 21:44 Sucralfate (Carafate) 1 gm TID ORAL 11/17/17 18:00 12/17/17 17:59 11/17/17 17:18 Temazepam (Restoril) 15 mg HSPRN PRN ORAL Insomnia 11/16/17 21:41 11/23/17 21:40 11/17/17 21:30 Asif Edward MD Nov 18, 2017 07:38
[2017-11-18 07:40] LABS: BASOPHILS % (AUTO) 0.7 % (0.0-2.0); EOSINOPHILS % (AUTO) 3.7 % (0.0-3.0); HEMATOCRIT 42.1 % (42.0-52.0); MEAN CORPUSCULAR VOLUME 79 FL (80-99); MONOCYTES % (AUTO) 12.9 % (1.0-10.0); NEUTROPHILS % (AUTO) 55.7 % (45.0-75.0); PLATELET COUNT 189 K/UL (150-450); RED BLOOD COUNT 5.34 M/UL (4.70-6.10); RED CELL DISTRIBUTION WIDTH 16.3 % (11.6-14.8); WHITE BLOOD COUNT 3.6 K/UL (4.8-10.8)
[2017-11-18 08:00] VITALS: BP 108/74
[2017-11-18 08:11] LABS: LACTATE DEHYDROGENASE 281 U/L (81-234)
[2017-11-18 08:13] LABS: % IRON SATURATION 7 % (15-50); IRON 31 ug/dL (50-175); TOTAL IRON BINDING CAPACITY 442 ug/dL (250-450)
[2017-11-18] MEDS: DULoxetine 30mg cap ORAL SCH (08:28)
[2017-11-18] MEDS: Aspirin Baby 81mg ORAL SCH (08:28)
[2017-11-18] MEDS: Sucralfate 1gm tab ORAL SCH ×3 (08:28→17:16)
[2017-11-18] MEDS: Heparin 5000 units/ml inj SUBQ SCH ×2 (08:29→21:00)
[2017-11-18 08:35] LABS: ALANINE AMINOTRANSFERASE 37 U/L (12-78); ALBUMIN 2.8 G/DL (3.4-5.0); ALBUMIN/GLOBULIN RATIO 0.5 (1.0-2.7); ALKALINE PHOSPHATASE 86 U/L (46-116); ANION GAP 9 mmol/L (5-15); ASPARTATE AMINO TRANSFERASE 39 U/L (15-37); BILIRUBIN,TOTAL 0.8 MG/DL (0.2-1.0); BLOOD UREA NITROGEN 23 mg/dL (7-18); CALCIUM 8.4 MG/DL (8.5-10.1); CARBON DIOXIDE 26 MMOL/L (21-32); CHLORIDE 99 MMOL/L (98-107); CREATININE 1.4 MG/DL (0.55-1.30); POTASSIUM 4.9 MMOL/L (3.5-5.1); SODIUM 134 MMOL/L (136-145)
--- NOTE | 2017-11-18 09:25 | Diagnostic Imaging Report ---
PORTABLE AP UPRIGHT CXR: HISTORY: 57-year-old male with dyspnea. COMPARISON: 11/16/2017. FINDINGS: The lungs remain grossly clear, without confluent consolidation or septal thickening. There is at least mild cardio megaly, which appears stable to mildly increased. No abnormal mediastinal widening. No obvious pneumothorax or effusion. IMPRESSION: At least mild cardiomegaly, stable to mildly increased; no lung consolidation or evidence of acute pulmonary edema.
[2017-11-18 09:32] LABS: INR 1.1 (0.9-1.1)
[2017-11-18 12:00] VITALS: BP 124/98
--- NOTE | 2017-11-18 15:28 | Internal Med Progress Note ---
Subjective Date of Service: Nov 18, 2017 Physician Name Douglas Anthony Attending Physician Arcadio Rodriguez MD Current Medications Medications (Trade) Dose Ordered Sig/Sidney Route PRN Reason Start Time Stop Time Status Last Admin Dose Admin Acetaminophen (Tylenol) 650 mg Q4H PRN ORAL Fever 11/16/17 21:41 12/16/17 21:40 11/18/17 10:52 Al Hydroxide/Mg Hydroxide (Mylanta) 30 ml Q6H PRN ORAL heartburn 11/17/17 15:45 12/17/17 15:44 11/18/17 05:05 Albuterol/ Ipratropium (Albuterol/ Ipratropium) 3 ml Q4H PRN HHN Shortness of Breath 11/16/17 21:45 11/21/17 21:44 Aspirin (ASA) 81 mg DAILY ORAL 11/17/17 09:00 12/17/17 08:59 11/18/17 08:28 Dextrose (Dextrose 50%) 25 ml Q30M PRN IV Hypoglycemia 11/16/17 21:45 12/16/17 21:44 Dextrose (Dextrose 50%) 50 ml Q30M PRN IV Hypoglycemia 11/16/17 21:45 12/16/17 21:44 Diphenhydramine HCl (Benadryl) 25 mg Q6H PRN ORAL Itching 11/17/17 08:00 12/17/17 07:59 11/18/17 01:31 Duloxetine HCl (Cymbalta) 30 mg DAILY ORAL 11/17/17 09:00 12/17/17 08:59 11/18/17 08:28 Furosemide (Lasix) 40 mg BID IV 11/17/17 09:00 12/16/17 21:59 11/18/17 08:28 Heparin Sodium (Porcine) (Heparin 5000 units/ml) 5,000 units EVERY 12 HOURS SUBQ 11/17/17 09:00 12/17/17 08:59 Metoprolol Tartrate (Lopressor) 5 mg Q5MIN X 3 IVP 11/16/17 21:30 12/16/17 21:29 11/16/17 21:46 Morphine Sulfate (Morphine Sulfate) 2 mg EVERY 4 HOURS PRN IVP pain 11/18/17 05:30 11/25/17 05:29 11/18/17 06:23 Nitroglycerin (Ntg) 0.4 mg Q5M PRN SL Prn Chest Pain 11/16/17 20:15 12/16/17 20:14 11/16/17 20:23 Non-Formulary Medication (Non-Formulary Med) 1 ea DAILY ORAL 11/17/17 14:00 12/17/17 13:59 UNV Ondansetron HCl (Zofran) 4 mg Q6H PRN IVP Nausea & Vomiting 11/16/17 21:41 12/16/17 21:40 Polyethylene Glycol (Miralax) 17 gm DAILYPRN PRN ORAL Constipation 11/16/17 21:45 12/16/17 21:44 Sucralfate (Carafate) 1 gm TID ORAL 11/17/17 18:00 12/17/17 17:59 11/18/17 13:52 Temazepam (Restoril) 15 mg HSPRN PRN ORAL Insomnia 11/16/17 21:41 11/23/17 21:40 11/17/17 21:30 Allergies: Coded Allergies: No Known Allergies (Unverified , 11/16/17) ROS Limited/Unobtainable: No Constitutional: Reports: no symptoms HEENT: Reports: no symptoms Cardiovascular: Reports: no symptoms Respiratory: Reports: no symptoms Gastrointestinal/Abdominal: Reports: no symptoms Genitourinary: Reports: no symptoms Neurologic/Psychiatric: Reports: no symptoms Objective Last Vital Signs Date Time Temp Pulse Resp B/P (MAP) Pulse Ox O2 Delivery O2 Flow Rate FiO2 11/18/17 12:00 110 11/18/17 12:00 98.2 20 124/98 (107) 100 98.2 11/18/17 09:00 Room Air 11/18/17 08:20 21 Laboratory Tests Test 11/17/17 15:28 11/18/17 06:35 Stool Occult Blood Pending White Blood Count Pending Red Blood Count 5.34 M/UL (4.70-6.10) Hemoglobin 13.0 G/DL (14.2-18.0) L Hematocrit 42.1 % (42.0-52.0) Mean Corpuscular Volume 79 FL (80-99) L Mean Corpuscular Hemoglobin 24.4 PG (27.0-31.0) L Mean Corpuscular Hemoglobin Concent 31.0 G/DL (32.0-36.0) L Red Cell Distribution Width 16.3 % (11.6-14.8) H Platelet Count 189 K/UL (150-450) Mean Platelet Volume 8.6 FL (6.5-10.1) Neutrophils (%) (Auto) 55.7 % (45.0-75.0) Lymphocytes (%) (Auto) 27.0 % (20.0-45.0) Monocytes (%) (Auto) 12.9 % (1.0-10.0) H Eosinophils (%) (Auto) 3.7 % (0.0-3.0) H Basophils (%) (Auto) 0.7 % (0.0-2.0) Differential Total Cells Counted 100 Neutrophils % (Manual) 64 % (45-75) Lymphocytes % (Manual) 22 % (20-45) Monocytes % (Manual) 10 % (1-10) Eosinophils % (Manual) 1 % (0-3) Basophils % (Manual) 1 % (0-2) Band Neutrophils 2 % (0-8) Lymphocytes Pending Platelet Estimate Adequate Platelet Morphology Normal Hypochromasia 1+ Anisocytosis 1+ Microcytosis 1+ Erythrocyte Sedimentation Rate 38 MM/HR (0-20) H Reticulocyte Count 0.7 % (0.0-2.0) Prothrombin Time 12.0 SEC (9.30-11.50) H Prothromb Time International Ratio 1.1 (0.9-1.1) Activated Partial Thromboplast Time 29 SEC (23-33) Sodium Level 134 MMOL/L (136-145) L Potassium Level 4.9 MMOL/L (3.5-5.1) Chloride Level 99 MMOL/L (98-107) Carbon Dioxide Level 26 MMOL/L (21-32) Anion Gap 9 mmol/L (5-15) Blood Urea Nitrogen 23 mg/dL (7-18) H Creatinine 1.4 MG/DL (0.55-1.30) H Estimat Glomerular Filtration Rate 51.9 mL/min (>60) Glucose Level 99 MG/DL (74-106) Calcium Level 8.4 MG/DL (8.5-10.1) L Iron Level 31 ug/dL (50-175) L Total Iron Binding Capacity 442 ug/dL (250-450) Percent Iron Saturation 7 % (15-50) L Unsaturated Iron Binding 411 ug/dL (112-346) H Total Bilirubin 0.8 MG/DL (0.2-1.0) Aspartate Amino Transf (AST/SGOT) 39 U/L (15-37) H Alanine Aminotransferase (ALT/SGPT) 37 U/L (12-78) Alkaline Phosphatase 86 U/L (46-116) Lactate Dehydrogenase 281 U/L (81-234) H Pro-B-Type Natriuretic Peptide 4966 pg/mL (0-125) H Total Protein 8.6 G/DL (6.4-8.2) H Albumin 2.8 G/DL (3.4-5.0) L Globulin 5.8 g/dL Albumin/Globulin Ratio 0.5 (1.0-2.7) L Carcinoembryonic Antigen Pending Vitamin B12 Level 827 PG/ML (193-986) Folate 16.7 NG/ML (8.6-58.9) Percent CD3 Cells Pending Absolute CD3 Count Pending Percent CD4 Cells Pending Absolute CD4 Count Pending T-Lymphocyte CD4/CD8 Ratio Pending Percent CD8 Cells Pending Absolute CD8 Count Pending HIV-1 RNA (PCR) log10 Value Pending HIV-1 RNA Ultraquantitative (PCR) Pending Microbiology Date/Time Source Procedure Growth Status 11/16/17 23:30 Nasal Nares MRSA Culture - Final NO METHICILLIN RESISTANT STAPH AUREUS... Complete Intake and Output 11/17/17 11/18/17 19:00 07:00 Intake Total 780 ml 400 ml Balance 780 ml 400 ml Intake Oral 780 ml 400 ml # Voids 3 # Bowel Movements 1 Objective PHYSICAL EXAMINATION: GENERAL: The patient is a well-developed and well-nourished male, in no apparent distress. HEENT: Eyes, pupils are equal and responsive to light and accommodation. Extraocular movements are intact. NECK: Supple without lymphadenopathy. CHEST: Lungs are clear to auscultation bilaterally with few crackles in bilateral bases. ABDOMEN: Soft, nontender, and nondistended. Positive bowel sounds. CARDIOVASCULAR: Tachycardic. Regular rhythm. S1 and S2 normal without murmurs, rubs, or gallops. NEUROMUSCULAR: Cranial nerves II through XII are grossly intact without focal deficits. Motor strength is 5/5 bilaterally. Deep tendon reflexes are 2+ plantar. EXTREMITIES: Negative for clubbing, cyanosis, or edema. Assessment/Plan Problem List: (1) Shortness of breath (2) CHF exacerbation Assessment & Plan: LVEF=15-20%. Await cardiology consult. (3) Hepatitis C (4) HIV (human immunodeficiency virus infection) Assessment & Plan: Continue HAART per ID Status: not improved Douglas Anthony MD Nov 18, 2017 15:28
[2017-11-18 16:00] VITALS: BP 111/69
--- NOTE | 2017-11-18 18:18 | Cardiac Electrophysiology PN ---
Subjective Subjective [id number] Objective Last 24 Hour Vital Signs Date Time Temp Pulse Resp B/P (MAP) Pulse Ox O2 Delivery O2 Flow Rate FiO2 11/18/17 17:04 98.2 11/18/17 16:34 98.2 11/18/17 16:00 98.2 106 20 111/69 (83) 100 98.2 11/18/17 16:00 109 11/18/17 12:00 110 11/18/17 12:00 98.2 20 124/98 (107) 100 98.2 11/18/17 11:22 98.3 11/18/17 10:52 98.3 11/18/17 09:00 Room Air 11/18/17 08:20 108 20 Room Air 21 11/18/17 08:00 98.3 104 20 108/74 (85) 100 98.3 11/18/17 08:00 107 11/18/17 06:18 112 114/78 (90) 100 11/18/17 04:00 98.2 110 20 120/92 (101) 98 98.2 11/18/17 03:37 110 11/17/17 23:58 108 11/17/17 21:00 Room Air 11/17/17 20:00 98.2 107 20 109/74 (86) 100 98.2 11/17/17 19:23 110 11/17/17 19:09 103 20 Room Air 21 Intake and Output 11/17/17 11/18/17 19:00 07:00 Intake Total 780 ml 400 ml Balance 780 ml 400 ml Intake Oral 780 ml 400 ml # Voids 3 # Bowel Movements 1 Laboratory Tests Test 11/18/17 06:35 White Blood Count Pending Red Blood Count 5.34 M/UL (4.70-6.10) Hemoglobin 13.0 G/DL (14.2-18.0) L Hematocrit 42.1 % (42.0-52.0) Mean Corpuscular Volume 79 FL (80-99) L Mean Corpuscular Hemoglobin 24.4 PG (27.0-31.0) L Mean Corpuscular Hemoglobin Concent 31.0 G/DL (32.0-36.0) L Red Cell Distribution Width 16.3 % (11.6-14.8) H Platelet Count 189 K/UL (150-450) Mean Platelet Volume 8.6 FL (6.5-10.1) Neutrophils (%) (Auto) 55.7 % (45.0-75.0) Lymphocytes (%) (Auto) 27.0 % (20.0-45.0) Monocytes (%) (Auto) 12.9 % (1.0-10.0) H Eosinophils (%) (Auto) 3.7 % (0.0-3.0) H Basophils (%) (Auto) 0.7 % (0.0-2.0) Differential Total Cells Counted 100 Neutrophils % (Manual) 64 % (45-75) Lymphocytes % (Manual) 22 % (20-45) Monocytes % (Manual) 10 % (1-10) Eosinophils % (Manual) 1 % (0-3) Basophils % (Manual) 1 % (0-2) Band Neutrophils 2 % (0-8) Lymphocytes Pending Platelet Estimate Adequate Platelet Morphology Normal Hypochromasia 1+ Anisocytosis 1+ Microcytosis 1+ Erythrocyte Sedimentation Rate 38 MM/HR (0-20) H Reticulocyte Count 0.7 % (0.0-2.0) Prothrombin Time 12.0 SEC (9.30-11.50) H Prothromb Time International Ratio 1.1 (0.9-1.1) Activated Partial Thromboplast Time 29 SEC (23-33) Sodium Level 134 MMOL/L (136-145) L Potassium Level 4.9 MMOL/L (3.5-5.1) Chloride Level 99 MMOL/L (98-107) Carbon Dioxide Level 26 MMOL/L (21-32) Anion Gap 9 mmol/L (5-15) Blood Urea Nitrogen 23 mg/dL (7-18) H Creatinine 1.4 MG/DL (0.55-1.30) H Estimat Glomerular Filtration Rate 51.9 mL/min (>60) Glucose Level 99 MG/DL (74-106) Calcium Level 8.4 MG/DL (8.5-10.1) L Iron Level 31 ug/dL (50-175) L Total Iron Binding Capacity 442 ug/dL (250-450) Percent Iron Saturation 7 % (15-50) L Unsaturated Iron Binding 411 ug/dL (112-346) H Total Bilirubin 0.8 MG/DL (0.2-1.0) Aspartate Amino Transf (AST/SGOT) 39 U/L (15-37) H Alanine Aminotransferase (ALT/SGPT) 37 U/L (12-78) Alkaline Phosphatase 86 U/L (46-116) Lactate Dehydrogenase 281 U/L (81-234) H Pro-B-Type Natriuretic Peptide 4966 pg/mL (0-125) H Total Protein 8.6 G/DL (6.4-8.2) H Albumin 2.8 G/DL (3.4-5.0) L Globulin 5.8 g/dL Albumin/Globulin Ratio 0.5 (1.0-2.7) L Carcinoembryonic Antigen Pending Vitamin B12 Level 827 PG/ML (193-986) Folate 16.7 NG/ML (8.6-58.9) Percent CD3 Cells Pending Absolute CD3 Count Pending Percent CD4 Cells Pending Absolute CD4 Count Pending T-Lymphocyte CD4/CD8 Ratio Pending Percent CD8 Cells Pending Absolute CD8 Count Pending HIV-1 RNA (PCR) log10 Value Pending HIV-1 RNA Ultraquantitative (PCR) Pending Microbiology Date/Time Source Procedure Growth Status 11/16/17 23:30 Nasal Nares MRSA Culture - Final NO METHICILLIN RESISTANT STAPH AUREUS... Complete Bony Cifuentes MD Nov 18, 2017 18:18
[2017-11-18 20:00] VITALS: BP 134/99
--- NOTE | 2017-11-18 23:15 | Consultation ---
DATE OF CONSULTATION: 11/18/2017 CARDIOLOGY CONSULTATION CONSULTING PHYSICIAN: Bony Cifuentes M.D. REFERRING PHYSICIAN: Arcadio Rodriguez M.D. REASON FOR CONSULTATION: Management of severe cardiomyopathy in a patient with hepatitis C and HIV. HISTORY OF PRESENT ILLNESS: The patient is a 57-year-old gentleman with history of hypertension, congestive heart failure, hepatitis C, and HIV for many years, who presented to the emergency room complaining of increasing shortness of breath and lower extremity edema. The patient was recently admitted to [facility]. At the time of my evaluation, the patient has palpitation or shortness of breath, but he still has swelling of the legs. REVIEW OF SYSTEMS: Review of systems was performed and was negative other than what is mentioned in the history of present illness. PAST MEDICAL HISTORY: Includes: 1. Hypertension. 2. Congestive heart failure. 3. HIV. 4. Hepatitis C. MEDICATIONS: Include and other HIV medication, he is not sure of CD4 count. FAMILY HISTORY: Noncontributory. SOCIAL HISTORY: He denies smoking or drinking alcohol. PHYSICAL EXAMINATION: VITAL SIGNS: Show blood pressure of 111/69, pulse is 109, respirations 18, temperature 98.2 degrees. HEAD AND NECK: Showed no JVD. LUNGS: Clear. CARDIOVASCULAR: Shows regular S1 and S2 with no gallop or murmur. ABDOMEN: Soft and nontender. EXTREMITIES: There is 2+ pitting edema. LABORATORY AND DIAGNOSTIC DATA: Labs show white count 3.7, hemoglobin 13, hematocrit 42, and platelet count is 189,000. Sodium is 134, potassium 4.9, BUN of 23, creatinine 1.4, and glucose of 99. BNP is 5300 and . ASSESSMENT AND PLAN: 1. History of congestive heart failure. His echocardiogram showed ejection fraction of only 15% to 20%. 2. I will increase his Lasix to 40 mg IV b.i.d. I will add Coreg, lisinopril and Aldactone to his medical regimen if the blood pressure allows. 3. HIV. 4. Hepatitis C. Thank you very much, Dr. Rodriguez, for allowing me to participate in the care of this patient. Please do not hesitate to contact me for any questions regarding my evaluation. Bony Cifuentes M.D. DR: JAMAL JOB#: [id number] CC:
[2017-11-19] VITALS: BP 141/105
--- NOTE | 2017-11-19 00:04 | Consultation ---
History of Present Illness General Chief Complaint: Upper Respiratory Illness Present Illness Allergies: Coded Allergies: No Known Allergies (Unverified , 11/16/17) Medication History Scheduled Ascorbic Acid* (Vitamin C*), 500 MG ORAL DAILY, (Reported) Cholecalciferol (Vitamin D3)* (Vitamin D*), 1,000 UNIT ORAL DAILY, (Reported) Darunavir/Cobicistat (Prezcobix 800 mg-150 mg Tablet), 1 EACH PO DAILY, ( Reported) Duloxetine Hcl* (Cymbalta*), 30 MG ORAL DAILY, (Reported) Furosemide* (Lasix*), 40 MG ORAL TWICE A DAY, (Reported) Glucosamine Sulfate 2KCL (Glucosamine), 1,000 MG PO DAILY, (Reported) Multivitamins* (Multivitamins*), 1 TAB ORAL DAILY, (Reported) [Triumeq], 1 TAB PO DAILY, (Reported) Patient History Healthcare decision maker sister Resuscitation status Full Code Advanced Directive on File Physical Exam Last 24 Hour Vital Signs Date Time Temp Pulse Resp B/P (MAP) Pulse Ox O2 Delivery O2 Flow Rate FiO2 11/18/17 21:10 113 134/99 11/18/17 20:44 Room Air 11/18/17 20:00 97.2 113 20 134/99 (111) 100 97.2 11/18/17 19:48 111 11/18/17 19:26 110 20 Room Air 21 11/18/17 17:04 98.2 11/18/17 16:34 98.2 11/18/17 16:00 98.2 106 20 111/69 (83) 100 98.2 11/18/17 16:00 109 11/18/17 12:00 110 11/18/17 12:00 98.2 20 124/98 (107) 100 98.2 11/18/17 11:22 98.3 11/18/17 10:52 98.3 11/18/17 09:00 Room Air 11/18/17 08:20 108 20 Room Air 21 11/18/17 08:00 98.3 104 20 108/74 (85) 100 98.3 11/18/17 08:00 107 11/18/17 06:18 112 114/78 (90) 100 11/18/17 04:00 98.2 110 20 120/92 (101) 98 98.2 11/18/17 03:37 110 Intake and Output 11/18/17 11/19/17 19:00 07:00 Intake Total 400 ml Balance 400 ml Intake Oral 400 ml Laboratory Tests Test 11/18/17 06:35 11/18/17 21:10 White Blood Count Pending Red Blood Count 5.34 M/UL (4.70-6.10) Hemoglobin 13.0 G/DL (14.2-18.0) L Hematocrit 42.1 % (42.0-52.0) Mean Corpuscular Volume 79 FL (80-99) L Mean Corpuscular Hemoglobin 24.4 PG (27.0-31.0) L Mean Corpuscular Hemoglobin Concent 31.0 G/DL (32.0-36.0) L Red Cell Distribution Width 16.3 % (11.6-14.8) H Platelet Count 189 K/UL (150-450) Mean Platelet Volume 8.6 FL (6.5-10.1) Neutrophils (%) (Auto) 55.7 % (45.0-75.0) Lymphocytes (%) (Auto) 27.0 % (20.0-45.0) Monocytes (%) (Auto) 12.9 % (1.0-10.0) H Eosinophils (%) (Auto) 3.7 % (0.0-3.0) H Basophils (%) (Auto) 0.7 % (0.0-2.0) Differential Total Cells Counted 100 Neutrophils % (Manual) 64 % (45-75) Lymphocytes % (Manual) 22 % (20-45) Monocytes % (Manual) 10 % (1-10) Eosinophils % (Manual) 1 % (0-3) Basophils % (Manual) 1 % (0-2) Band Neutrophils 2 % (0-8) Lymphocytes Pending Platelet Estimate Adequate Platelet Morphology Normal Hypochromasia 1+ Anisocytosis 1+ Microcytosis 1+ Erythrocyte Sedimentation Rate 38 MM/HR (0-20) H Reticulocyte Count 0.7 % (0.0-2.0) Prothrombin Time 12.0 SEC (9.30-11.50) H Prothromb Time International Ratio 1.1 (0.9-1.1) Activated Partial Thromboplast Time 29 SEC (23-33) Sodium Level 134 MMOL/L (136-145) L Potassium Level 4.9 MMOL/L (3.5-5.1) Chloride Level 99 MMOL/L (98-107) Carbon Dioxide Level 26 MMOL/L (21-32) Anion Gap 9 mmol/L (5-15) Blood Urea Nitrogen 23 mg/dL (7-18) H Creatinine 1.4 MG/DL (0.55-1.30) H Estimat Glomerular Filtration Rate 51.9 mL/min (>60) Glucose Level 99 MG/DL (74-106) Calcium Level 8.4 MG/DL (8.5-10.1) L Iron Level 31 ug/dL (50-175) L Total Iron Binding Capacity 442 ug/dL (250-450) Percent Iron Saturation 7 % (15-50) L Unsaturated Iron Binding 411 ug/dL (112-346) H Total Bilirubin 0.8 MG/DL (0.2-1.0) Aspartate Amino Transf (AST/SGOT) 39 U/L (15-37) H Alanine Aminotransferase (ALT/SGPT) 37 U/L (12-78) Alkaline Phosphatase 86 U/L (46-116) Lactate Dehydrogenase 281 U/L (81-234) H Pro-B-Type Natriuretic Peptide 4966 pg/mL (0-125) H Total Protein 8.6 G/DL (6.4-8.2) H Albumin 2.8 G/DL (3.4-5.0) L Globulin 5.8 g/dL Albumin/Globulin Ratio 0.5 (1.0-2.7) L Carcinoembryonic Antigen Pending Vitamin B12 Level 827 PG/ML (193-986) Folate 16.7 NG/ML (8.6-58.9) Percent CD3 Cells Pending Absolute CD3 Count Pending Percent CD4 Cells Pending Absolute CD4 Count Pending T-Lymphocyte CD4/CD8 Ratio Pending Percent CD8 Cells Pending Absolute CD8 Count Pending HIV-1 RNA (PCR) log10 Value Pending HIV-1 RNA Ultraquantitative (PCR) Pending Troponin I 0.010 ng/mL (0.000-0.056) Height (Feet): 5 Height (Inches): 10.00 Weight (Pounds): 160 Medications Current Medications Medications (Trade) Dose Ordered Sig/Sidney Route PRN Reason Start Time Stop Time Status Last Admin Dose Admin Acetaminophen (Tylenol) 650 mg Q4H PRN ORAL Fever 11/16/17 21:41 12/16/17 21:40 11/18/17 10:52 Al Hydroxide/Mg Hydroxide (Mylanta) 30 ml Q6H PRN ORAL heartburn 11/17/17 15:45 12/17/17 15:44 11/18/17 05:05 Albuterol/ Ipratropium (Albuterol/ Ipratropium) 3 ml Q4H PRN HHN Shortness of Breath 11/16/17 21:45 11/21/17 21:44 Aspirin (ASA) 81 mg DAILY ORAL 11/17/17 09:00 12/17/17 08:59 11/18/17 08:28 Carvedilol (Coreg) 3.125 mg EVERY 12 HOURS ORAL 11/18/17 21:00 12/18/17 20:59 11/18/17 21:10 Dextrose (Dextrose 50%) 25 ml Q30M PRN IV Hypoglycemia 11/16/17 21:45 12/16/17 21:44 Dextrose (Dextrose 50%) 50 ml Q30M PRN IV Hypoglycemia 11/16/17 21:45 12/16/17 21:44 Diphenhydramine HCl (Benadryl) 25 mg Q6H PRN ORAL Itching 11/17/17 08:00 12/17/17 07:59 11/18/17 01:31 Duloxetine HCl (Cymbalta) 30 mg DAILY ORAL 11/17/17 09:00 12/17/17 08:59 11/18/17 08:28 Furosemide (Lasix) 40 mg BID IV 11/17/17 09:00 12/16/17 21:59 11/18/17 17:16 Heparin Sodium (Porcine) (Heparin 5000 units/ml) 5,000 units EVERY 12 HOURS SUBQ 11/17/17 09:00 12/17/17 08:59 Lisinopril (Zestril) 10 mg DAILY ORAL 11/19/17 09:00 12/19/17 08:59 Metoprolol Tartrate (Lopressor) 5 mg Q5MIN X 3 IVP 11/16/17 21:30 12/16/17 21:29 11/16/17 21:46 Morphine Sulfate (Morphine Sulfate) 2 mg EVERY 4 HOURS PRN IVP pain 11/18/17 05:30 11/25/17 05:29 11/18/17 23:31 Nitroglycerin (Ntg) 0.4 mg Q5M PRN SL Prn Chest Pain 11/16/17 20:15 12/16/17 20:14 11/16/17 20:23 Non-Formulary Medication (Non-Formulary Med) 1 ea DAILY ORAL 11/17/17 14:00 12/17/17 13:59 UNV Ondansetron HCl (Zofran) 4 mg Q6H PRN IVP Nausea & Vomiting 11/16/17 21:41 12/16/17 21:40 Polyethylene Glycol (Miralax) 17 gm DAILYPRN PRN ORAL Constipation 11/16/17 21:45 12/16/17 21:44 Spironolactone (Aldactone) 25 mg DAILY ORAL 11/19/17 09:00 12/19/17 08:59 Sucralfate (Carafate) 1 gm TID ORAL 11/17/17 18:00 12/17/17 17:59 11/18/17 17:16 Temazepam (Restoril) 15 mg HSPRN PRN ORAL Insomnia 11/16/17 21:41 11/23/17 21:40 11/17/17 21:30 Angela Luther MD Nov 19, 2017 00:04
[2017-11-19 04:00] VITALS: BP 128/96
[2017-11-19 08:00] VITALS: BP 117/87
[2017-11-19] MEDS: Sucralfate 1gm tab ORAL SCH ×2 (08:50→12:11)
[2017-11-19] MEDS: DULoxetine 30mg cap ORAL SCH (08:50)
[2017-11-19] MEDS: Aspirin Baby 81mg ORAL SCH (08:50)
[2017-11-19] MEDS: Heparin 5000 units/ml inj SUBQ SCH (08:51)
[2017-11-19] MEDS ORDERED: Lisinopril 10mg tab ORAL SCH (09:00)
[2017-11-19] MEDS ORDERED: Spironolactone 25mg tab ORAL SCH (09:00)
[2017-11-19] MEDS: Morphine Sulfate 2mg/ml Inj IVP PRN ×2 (10:01→13:23)
[2017-11-19 12:00] VITALS: BP 133/89
--- NOTE | 2017-11-19 12:07 | Cardiology Report ---
APPROVED REPORT EKG Measurement Heart [id number] Normal sinus rhythm Right atrial enlargement Right axis deviation Left bundle branch block Abnormal ECG
--- NOTE | 2017-11-19 12:08 | Cardiology Report ---
APPROVED REPORT EKG Measurement Heart [id number] Sinus tachycardia Possible Left atrial enlargement Rightward axis LBBB Abnormal ECG
--- NOTE | 2017-11-19 12:56 | Internal Med Progress Note ---
Subjective Date of Service: Nov 19, 2017 Physician Name AnthonyDouglas Attending Physician Arcadio Rodriguez MD Current Medications Medications (Trade) Dose Ordered Sig/Sidney Route PRN Reason Start Time Stop Time Status Last Admin Dose Admin Acetaminophen (Tylenol) 650 mg Q4H PRN ORAL Fever 11/16/17 21:41 12/16/17 21:40 11/18/17 10:52 Al Hydroxide/Mg Hydroxide (Mylanta) 30 ml Q6H PRN ORAL heartburn 11/17/17 15:45 12/17/17 15:44 11/18/17 05:05 Albuterol/ Ipratropium (Albuterol/ Ipratropium) 3 ml Q4H PRN HHN Shortness of Breath 11/16/17 21:45 11/21/17 21:44 Aspirin (ASA) 81 mg DAILY ORAL 11/17/17 09:00 12/17/17 08:59 11/19/17 08:50 Carvedilol (Coreg) 3.125 mg EVERY 12 HOURS ORAL 11/18/17 21:00 12/18/17 20:59 11/19/17 08:51 Dextrose (Dextrose 50%) 25 ml Q30M PRN IV Hypoglycemia 11/16/17 21:45 12/16/17 21:44 Dextrose (Dextrose 50%) 50 ml Q30M PRN IV Hypoglycemia 11/16/17 21:45 12/16/17 21:44 Diphenhydramine HCl (Benadryl) 25 mg Q6H PRN ORAL Itching 11/17/17 08:00 12/17/17 07:59 11/18/17 01:31 Duloxetine HCl (Cymbalta) 30 mg DAILY ORAL 11/17/17 09:00 12/17/17 08:59 11/19/17 08:50 Furosemide (Lasix) 40 mg BID IV 11/17/17 09:00 12/16/17 21:59 11/19/17 08:50 Heparin Sodium (Porcine) (Heparin 5000 units/ml) 5,000 units EVERY 12 HOURS SUBQ 11/17/17 09:00 12/17/17 08:59 11/19/17 08:51 Lisinopril (Zestril) 10 mg DAILY ORAL 11/19/17 09:00 12/19/17 08:59 11/19/17 08:51 Metoprolol Tartrate (Lopressor) 5 mg Q5MIN X 3 IVP 11/16/17 21:30 12/16/17 21:29 11/16/17 21:46 Morphine Sulfate (Morphine Sulfate) 2 mg EVERY 4 HOURS PRN IVP pain 11/18/17 05:30 11/25/17 05:29 11/19/17 10:01 Nitroglycerin (Ntg) 0.4 mg Q5M PRN SL Prn Chest Pain 11/16/17 20:15 12/16/17 20:14 11/16/17 20:23 Non-Formulary Medication (Non-Formulary Med) 1 ea DAILY ORAL 11/17/17 14:00 12/17/17 13:59 UNV Ondansetron HCl (Zofran) 4 mg Q6H PRN IVP Nausea & Vomiting 11/16/17 21:41 12/16/17 21:40 11/19/17 08:50 Polyethylene Glycol (Miralax) 17 gm DAILYPRN PRN ORAL Constipation 11/16/17 21:45 12/16/17 21:44 Spironolactone (Aldactone) 25 mg DAILY ORAL 11/19/17 09:00 12/19/17 08:59 11/19/17 08:51 Sucralfate (Carafate) 1 gm TID ORAL 11/17/17 18:00 12/17/17 17:59 11/19/17 12:11 Temazepam (Restoril) 15 mg HSPRN PRN ORAL Insomnia 11/16/17 21:41 11/23/17 21:40 11/17/17 21:30 Allergies: Coded Allergies: No Known Allergies (Unverified , 11/16/17) ROS Limited/Unobtainable: No Constitutional: Reports: no symptoms HEENT: Reports: no symptoms Cardiovascular: Reports: no symptoms Respiratory: Reports: no symptoms Gastrointestinal/Abdominal: Reports: no symptoms Genitourinary: Reports: no symptoms Neurologic/Psychiatric: Reports: no symptoms Subjective 57 YO M admitted with shortness of breath and CHF. Patient wants to leave for home today. Cover for Int Derek-Dr Rodriguez Objective Last Vital Signs Date Time Temp Pulse Resp B/P (MAP) Pulse Ox O2 Delivery O2 Flow Rate FiO2 11/19/17 10:31 98.2 11/19/17 09:00 Room Air 11/19/17 08:51 117/89 11/19/17 08:51 97 11/19/17 08:00 20 96 11/18/17 19:26 21 Laboratory Tests Test 11/18/17 21:10 Troponin I 0.010 ng/mL (0.000-0.056) Microbiology Date/Time Source Procedure Growth Status 11/16/17 23:30 Nasal Nares MRSA Culture - Final NO METHICILLIN RESISTANT STAPH AUREUS... Complete 11/16/17 23:30 Rectum VRE Culture - Final NO VANCOMYCIN RESISTANT ENTEROCOCCUS ... Complete 11/16/17 23:30 Rectum - Final NO CARBAPENEM-RESISTANT ENTEROBACTERI... Complete Intake and Output 11/18/17 11/19/17 19:00 07:00 Intake Total 400 ml Balance 400 ml Intake Oral 400 ml # Voids 4 Objective PHYSICAL EXAMINATION: GENERAL: The patient is a well-developed and well-nourished male, in no apparent distress. HEENT: Eyes, pupils are equal and responsive to light and accommodation. Extraocular movements are intact. NECK: Supple without lymphadenopathy. CHEST: Lungs are clear to auscultation bilaterally with few crackles in bilateral bases. ABDOMEN: Soft, nontender, and nondistended. Positive bowel sounds. CARDIOVASCULAR: Tachycardic. Regular rhythm. S1 and S2 normal without murmurs, rubs, or gallops. NEUROMUSCULAR: Cranial nerves II through XII are grossly intact without focal deficits. Motor strength is 5/5 bilaterally. Deep tendon reflexes are 2+ plantar. EXTREMITIES: Negative for clubbing, cyanosis, or edema. Assessment/Plan Problem List: (1) Shortness of breath (2) CHF exacerbation Assessment & Plan: LVEF=15-20%. See cardiology consult. (3) Hepatitis C (4) HIV (human immunodeficiency virus infection) Assessment & Plan: Continue HAART per ID Status: Douglas Mcdonald MD Nov 19, 2017 12:56
[2017-11-19] MEDS ORDERED: LISINOPRIL10 MG ORAL (13:04)
[2017-11-19] MEDS ORDERED: FUROSEMIDE40 MG/5 ML ORAL (13:04)
[2017-11-19] MEDS ORDERED: ALDACTONE25 MG ORAL (13:04)
[2017-11-19] MEDS ORDERED: COREG3.125 MG ORAL (13:04)
--- NOTE | 2017-11-20 11:14 | Cardiology Report ---
APPROVED REPORT EXAM: Two-dimensional and M-mode echocardiogram with Doppler and color Doppler. INDICATION LV function M-Mode DIMENSIONS IVSd1.4 (0.7-1.1cm)Left Atrium (MM)5.2 (1.6-4.0cm) LVDd5.7 (3.5-5.6cm)Aortic Root2.9 (2.0-3.7cm) PWd0.9 (0.7-1.1cm)Aortic Cusp Exc.1.9 (1.5-2.0cm) LVDs5.2 (2.5-4.0cm) PWs1.2 cm Moderate left ventricular enlargement. Severe global left ventricular hypokinesis. Anteroseptal, inferoseptal and anterior dyskinesis. Septum appears thinning. Left ventricular ejection fraction estimated to be 15-20 %. Borderline left ventricular hypertrophy. Small posterior pericardial effusion. Moderate left atrial enlargement. Severe right atrial enlargement. Mild right ventricular enlargement. Mild focal aortic valve sclerosis with adequate cusp excursion. Mildly thickened mitral valve leaflets with normal excursion. Mitral annulus and aortic root calcification. Pulmonic valve not well visualized. Normal tricuspid valve structure. IVC dilated at 2.3 cm without physiologic collapse suggestive of increased RA pressure. A color flow and spectral Doppler study was performed and revealed: Moderate to severe posteriorly eccentric mitral regurgitation. Mitral inflow indicates restrictive pattern, implying severely elevated left atrial pressure (Grade III ). Moderate to severe tricuspid regurgitation. Tricuspid systolic velocities suggests peak right ventricular systolic pressure of 55 mmHg, consistent with moderate pulmonary hypertension. Trace pulmonic regurgitation present.
--- NOTE | 2017-11-20 12:27 | Discharge Summary ---
Discharge Summary Discharge Summary _ DATE OF ADMISSION: 11/16/2017 DATE OF DISCHARGE: 11/19/2017 REASON FOR ADMISSION: 57 years old male with past medical history of congestive heart failure, hepatitis C, HIV status, presented with increased difficulty breathing and chest tightness. Onset of symptoms happened about 2 weeks ago. Upon evaluation patient was tachycardic and tachypneic. Pulse oximetry was stable on room air . EKG revealed sinus tachycardia with right axis deviation, left bundle branch block and possible left atrial enlargement. Laboratory workup revealed negative troponin. ProBNP 5618. No leukocytosis, stable hemoglobin and hematocrit . Chest x-ray revealed some vascular congestion Patient admitted with diagnoses of CHF exacerbation ,HIV status ,hepatitis C, peripheral edema. CONSULTANTS: community living specialist Dr. Cifuentes pulmonary Dr. Todd ID specialist Dr. Lenz psychiatrist [facility] COURSE: Patient admitted to telemetry floor. Echocardiogram revealed ejection fraction of 15-20% with severe global left ventricular hypokinesis. Anteroseptal, inferior septal and anterior dyskinesis. Septum appeared thinning. Borderline left ventricular hypertrophy. Severe right atrial enlargement and moderate left atrial enlargement. Grade 3 diastolic dysfunction with severely elevated left atrial pressure. Moderate to severe tricuspid regurgitation , moderate to severe mitral regurgitation. Right ventricular systolic pressure of 55 consistent with moderate pulmonary hypertension. Business Intelligence Analyst closely followed. Patient started on intravenous diuretic/Lasix with close monitoring of volumes and cardiorenal parameters. Anti- failure medication regimen optimized, included beta kathy, YAKOV inhibitor ,and Aldactone along with Lasix. Venous duplex bilateral lower extremity revealed no acute DVT. Supplemental oxygen provided as needed to keep pulse oximetry above 92%. Pulmonary toilet provided as needed. Master Scheduler closely followed. Pro BNP trended down to 4966. Infectious disease specialist closely followed . Antiretroviral regimen was continued HIV was diagnosed in 1993. Patient admitted to compliance with regimen. Per patient, viral load around 200 , was never undetected . Patient was unaware of CD4 count . CD4 count 169, placing this patient in AIDS category. Patient with mild anemia. Hemoglobin and hematocrit were closely monitored with goal to keep hemoglobin above 7. Prior to discharge hemoglobin 13 hematocrit 42. Anemia workup was consistent with anemia of chronic disease. Stool for occult blood was negative. Patient stabilized and was ready for discharge home with home health services. FINAL DIAGNOSES: Acute systolic and diastolic CHF exacerbation Severe cardiomyopathy with ejection fraction 15-20% HIV status /AIDS with CD4 count-169 Hepatitis C Peripheral edema DISCHARGE MEDICATIONS: See Medication Reconciliation list. DISCHARGE INSTRUCTIONS: Patient was discharged home with home health services. Follow up with primary care provider in one week. I have been assigned to dictate discharge summary for this account. I was not involved in the patient's management. Lisa Melo NP Nov 20, 2017 12:27
== END 2017-11-19 14:25 | disposition home health service (06) | DRG 194 ==
LOC: EDBD 19:12 → EMR 20:44 → 2E 21:00 → EDBEDREQ 21:26
DX: I11.0 Hypertensive heart disease with heart failure (principal); B20 Human immunodeficiency virus [HIV] disease; I27.20 Pulmonary hypertension, unspecified; I50.43 Acute on chronic combined systolic (congestive) and diastolic (congestive) heart failure; I36.1 Nonrheumatic tricuspid (valve) insufficiency; B19.20 Unspecified viral hepatitis C without hepatic coma; Z88.2 Allergy status to sulfonamides; Z87.891 Personal history of nicotine dependence; I44.7 Left bundle-branch block, unspecified; D63.8 Anemia in other chronic diseases classified elsewhere; I42.9 Cardiomyopathy, unspecified; D64.9 Anemia, unspecified
CPT/HCPCS: 36415; 71045; 80053; 82270; 82378; 82550; 82553; 82607; 82746; 83540; 83550; 83615; 83690; 83735; 83880; 84100; 84484; 85007; 85025; 85044; 85060; 85610; 85651; 85730; 86360; 86705; 86709; 86803; 87081; 87340; 87536; 93005; 93306; 93970; 94640; 94664; 96374; 99285; J2405

== ENCOUNTER 2017-12-04 13:32 | Inpatient (IN) | payer OTHER ==
[~2017-12-04] VITALS: Ht 177.8 cm; Wt 53.1 kg
[~2017-12-04 13:32] MED LIST: ALDACTONE25 MG ORAL; COREG3.125 MG ORAL; CYMBALTA30 MG ORAL; FUROSEMIDE40 MG ORAL; FUROSEMIDE40 MG/5 ML ORAL; GLUCOSAMINE1000 M1 PO; LISINOPRIL10 MG ORAL; MULTIVITAMINS1 EAC2 ORAL; PREZCOBIX 8001 EACH PO; TRIUMEQ PO; VITAMIN C500 M1 ORAL; VITAMIN D1000 UNI1 ORAL
[2017-12-04 13:55] VITALS: BP 114/85
--- NOTE | 2017-12-04 13:57 | Emergency Room Report ---
History of Present Illness General Chief Complaint: General Complaint Source: Patient Present Illness HPI Patient presents reporting that he would like the name and referral of the quality supervisor that he was seen in the hospital during his recent admission Also reports that he has had continued shortness of breath he did not take his Lasix this morning Denies any chest pain denies any vomiting or diarrhea He felt generally weak Denies any neck pain or photophobia Patient has multiple comorbidities Had fairly extensive inpatient care 2 weeks ago Allergies: Coded Allergies: No Known Allergies (Unverified , 11/16/17) Patient History Past Medical History: see triage record Pertinent Family History: none Reviewed Nursing Documentation: PMH: Agreed; PSxH: Agreed Nursing Documentation-PMH Past Medical History: No History, Except For Hx Cardiac Problems: Yes - chf,hep c, hiv Review of Systems All Other Systems: negative except mentioned in HPI Physical Exam Vital Signs Date Time Temp Pulse Resp B/P (MAP) Pulse Ox O2 Delivery O2 Flow Rate FiO2 12/04/17 13:39 97.2 98 20 110/63 96 Room Air Sp02 EP Interpretation: reviewed, normal General Appearance: no apparent distress Head: normocephalic, atraumatic Eyes: bilateral eye PERRL, bilateral eye EOMI ENT: hearing grossly normal, normal pharynx Neck: full range of motion, supple Respiratory: lungs clear, normal breath sounds, no respiratory distress, no retraction, no accessory muscle use Cardiovascular #1: regular rate, rhythm Gastrointestinal: non tender, soft Musculoskeletal: other - Patient ambulate with a walker Neurologic: alert, oriented x3, responsive Skin: other - Edema on both lower extremity Medical Decision Making Diagnostic Impression: Primary Impression: Dyspnea ER Course Patient is a fairly complex patient with multiple differential to consideration including but not limited to cardiac cardiopulmonary and vascular emergencies Patient has multiple comorbidities At this time also admits to using cocaine Patient's EKG appears change from recent 2 weeks ago here Thus far blood work are appropriate however given the changes in the patient's complaints Will have admission for further inpatient care Labs Test 12/04/17 14:05 White Blood Count 4.1 K/UL (4.8-10.8) Red Blood Count 5.04 M/UL (4.70-6.10) Hemoglobin 12.0 G/DL (14.2-18.0) Hematocrit 39.5 % (42.0-52.0) Mean Corpuscular Volume 78 FL (80-99) Mean Corpuscular Hemoglobin 23.7 PG (27.0-31.0) Mean Corpuscular Hemoglobin Concent 30.3 G/DL (32.0-36.0) Red Cell Distribution Width 16.6 % (11.6-14.8) Platelet Count 187 K/UL (150-450) Mean Platelet Volume 7.4 FL (6.5-10.1) Neutrophils (%) (Auto) 68.7 % (45.0-75.0) Lymphocytes (%) (Auto) 13.1 % (20.0-45.0) Monocytes (%) (Auto) 14.7 % (1.0-10.0) Eosinophils (%) (Auto) 2.2 % (0.0-3.0) Basophils (%) (Auto) 1.3 % (0.0-2.0) Sodium Level 134 MMOL/L (136-145) Potassium Level 4.7 MMOL/L (3.5-5.1) Chloride Level 103 MMOL/L (98-107) Carbon Dioxide Level 25 MMOL/L (21-32) Anion Gap 7 mmol/L (5-15) Blood Urea Nitrogen 23 mg/dL (7-18) Creatinine 1.2 MG/DL (0.55-1.30) Estimat Glomerular Filtration Rate > 60 mL/min (>60) Glucose Level 75 MG/DL (74-106) Calcium Level 8.4 MG/DL (8.5-10.1) Total Bilirubin 0.5 MG/DL (0.2-1.0) Aspartate Amino Transf (AST/SGOT) 31 U/L (15-37) Alanine Aminotransferase (ALT/SGPT) 36 U/L (12-78) Alkaline Phosphatase 89 U/L (46-116) Total Creatine Kinase 76 U/L (26-308) Creatine Kinase MB 1.3 NG/ML (0.0-3.6) Creatine Kinase MB Relative Index 1.7 Troponin I 0.009 ng/mL (0.000-0.056) Pro-B-Type Natriuretic Peptide 4183 pg/mL (0-125) Total Protein 8.1 G/DL (6.4-8.2) Albumin 2.6 G/DL (3.4-5.0) Globulin 5.5 g/dL Albumin/Globulin Ratio 0.5 (1.0-2.7) EKG Diagnostic Results Rate: normal Rhythm: NSR ST Segments: other - Interventricular block, T-wave changes significantly in inferior and lateral leads Rhythm Strip Diag. Results EP Interpretation: yes Rate: 88 Rhythm: NSR, no PVC's, no ectopy Chest X-Ray Diagnostic Results Chest X-Ray Diagnostic Results : Chest X-Ray Ordered: Yes # of Views/Limited/Complete: 1 View Indication: Chest Pain EP Interpretation: Yes Interpretation: no consolidation, no effusion, no pneumothorax Impression: No acute disease - Cardiomegaly Electronically Signed by: Anant Vazquez DO Last Vital Signs Date Time Temp Pulse Resp B/P (MAP) Pulse Ox O2 Delivery O2 Flow Rate FiO2 12/04/17 13:39 97.2 98 20 110/63 96 Room Air Status: improved Disposition: ADMITTED INPATIENT Condition: Serious Anant Vazquez DO Dec 04, 2017 13:57
[2017-12-04] MEDS ORDERED: Furosemide 40mg tab ORAL ONE (14:00)
[2017-12-04 14:26] LABS: BASOPHILS % (AUTO) 1.3 % (0.0-2.0); EOSINOPHILS % (AUTO) 2.2 % (0.0-3.0); HEMATOCRIT 39.5 % (42.0-52.0); LYMPHOCYTES % (AUTO) 13.1 % (20.0-45.0); MEAN CORPUSCULAR VOLUME 78 FL (80-99); MONOCYTES % (AUTO) 14.7 % (1.0-10.0); NEUTROPHILS % (AUTO) 68.7 % (45.0-75.0); PLATELET COUNT 187 K/UL (150-450); RED BLOOD COUNT 5.04 M/UL (4.70-6.10); RED CELL DISTRIBUTION WIDTH 16.6 % (11.6-14.8); WHITE BLOOD COUNT 4.1 K/UL (4.8-10.8)
[2017-12-04 14:38] LABS: ANION GAP 7 mmol/L (5-15); BLOOD UREA NITROGEN 23 mg/dL (7-18); CALCIUM 8.4 MG/DL (8.5-10.1); CARBON DIOXIDE 25 MMOL/L (21-32); CHLORIDE 103 MMOL/L (98-107); CREATININE 1.2 MG/DL (0.55-1.30); POTASSIUM 4.7 MMOL/L (3.5-5.1); SODIUM 134 MMOL/L (136-145)
[2017-12-04] MEDS ORDERED: HYDROcodone/Acetamin 10/325 tab ORAL ONE (14:45)
[2017-12-04 14:50] LABS: ALANINE AMINOTRANSFERASE 36 U/L (12-78); ALBUMIN 2.6 G/DL (3.4-5.0); ALBUMIN/GLOBULIN RATIO 0.5 (1.0-2.7); ALKALINE PHOSPHATASE 89 U/L (46-116); ASPARTATE AMINO TRANSFERASE 31 U/L (15-37); BILIRUBIN,TOTAL 0.5 MG/DL (0.2-1.0); CKMB 1.3 NG/ML (0.0-3.6); CREATINE KINASE 76 U/L (26-308)
--- NOTE | 2017-12-04 15:04 | Diagnostic Imaging Report ---
Indication: Dyspnea Comparison: 11/18/2017 A single view chest radiograph was obtained. Findings: No definite infiltrate or pulmonary vascular congestion identified. The heart is enlarged. The bones are osteopenic. Impression: No acute disease
[2017-12-04 15:12] VITALS: BP 113/87
--- NOTE | 2017-12-04 15:59 | Cardiac Electrophysiology PN ---
Subjective Subjective Seen in ER and dictated [id number] Objective Last 24 Hour Vital Signs Date Time Temp Pulse Resp B/P (MAP) Pulse Ox O2 Delivery O2 Flow Rate FiO2 12/04/17 15:12 98 20 113/87 97 Nasal Cannula 2.0 12/04/17 13:55 98 20 Room Air 12/04/17 13:55 97.2 99 12 114/85 100 Room Air 12/04/17 13:39 97.2 98 20 110/63 96 Room Air Laboratory Tests Test 12/04/17 14:05 White Blood Count 4.1 K/UL (4.8-10.8) L Red Blood Count 5.04 M/UL (4.70-6.10) Hemoglobin 12.0 G/DL (14.2-18.0) L Hematocrit 39.5 % (42.0-52.0) L Mean Corpuscular Volume 78 FL (80-99) L Mean Corpuscular Hemoglobin 23.7 PG (27.0-31.0) L Mean Corpuscular Hemoglobin Concent 30.3 G/DL (32.0-36.0) L Red Cell Distribution Width 16.6 % (11.6-14.8) H Platelet Count 187 K/UL (150-450) Mean Platelet Volume 7.4 FL (6.5-10.1) Neutrophils (%) (Auto) 68.7 % (45.0-75.0) Lymphocytes (%) (Auto) 13.1 % (20.0-45.0) L Monocytes (%) (Auto) 14.7 % (1.0-10.0) H Eosinophils (%) (Auto) 2.2 % (0.0-3.0) Basophils (%) (Auto) 1.3 % (0.0-2.0) Sodium Level 134 MMOL/L (136-145) L Potassium Level 4.7 MMOL/L (3.5-5.1) Chloride Level 103 MMOL/L (98-107) Carbon Dioxide Level 25 MMOL/L (21-32) Anion Gap 7 mmol/L (5-15) Blood Urea Nitrogen 23 mg/dL (7-18) H Creatinine 1.2 MG/DL (0.55-1.30) Estimat Glomerular Filtration Rate > 60 mL/min (>60) Glucose Level 75 MG/DL (74-106) Calcium Level 8.4 MG/DL (8.5-10.1) L Total Bilirubin 0.5 MG/DL (0.2-1.0) Aspartate Amino Transf (AST/SGOT) 31 U/L (15-37) Alanine Aminotransferase (ALT/SGPT) 36 U/L (12-78) Alkaline Phosphatase 89 U/L (46-116) Total Creatine Kinase 76 U/L (26-308) Creatine Kinase MB 1.3 NG/ML (0.0-3.6) Creatine Kinase MB Relative Index 1.7 Troponin I 0.009 ng/mL (0.000-0.056) Pro-B-Type Natriuretic Peptide 4183 pg/mL (0-125) H Total Protein 8.1 G/DL (6.4-8.2) Albumin 2.6 G/DL (3.4-5.0) L Globulin 5.5 g/dL Albumin/Globulin Ratio 0.5 (1.0-2.7) L Bony Cifuentes MD Dec 04, 2017 15:59
--- NOTE | 2017-12-04 18:27 | History & Physical ---
History and Physical History & Physicial Dictated for Dr Rodriguez no. [id number]. Douglas Anthony MD Dec 04, 2017 18:27
[2017-12-04 19:59] VITALS: BP 107/77
--- NOTE | 2017-12-04 20:45 | Consultation ---
DATE OF CONSULTATION: 12/04/2017 CARDIOLOGY CONSULTATION CONSULTING PHYSICIAN: Bony Cifuentes M.D. REFERRING PHYSICIAN: Arcadio Rodriguez M.D. REASON FOR CONSULTATION: Atrial fibrillation and congestive heart failure. HISTORY OF PRESENT ILLNESS: The patient is a 57-year-old gentleman that I am familiar with from his admission, just less than two weeks ago. The patient has a history of hepatitis C and HIV as well as severe cardiomyopathy, ejection fraction of only 15 to 20% based on echocardiogram two weeks ago. The patient was discharged and came back to the emergency room with increasing shortness of breath and bilateral lower extremity edema. Cardiology consultation was obtained for further evaluation. He stated that he did not take his Lasix this morning. REVIEW OF SYSTEMS: Review of systems was negative other than what was mentioned in the history of present illness. PAST MEDICAL HISTORY: As mentioned above. FAMILY HISTORY: Noncontributory. SOCIAL HISTORY: He states that he continues to use cocaine, the most recent one was two days ago. PHYSICAL EXAMINATION: VITAL SIGNS: Blood pressure 130/87, pulse 98, and respirations 20. HEAD AND NECK: Shows positive JVD. LUNGS: Decreased breath sounds. CARDIOVASCULAR: Regular S1 and S2 with no gallop. ABDOMEN: Soft. EXTREMITIES: A 2+ bilateral pitting edema. LABORATORY AND DIAGNOSTIC DATA: His EKG shows sinus rhythm with right bundle-branch block and left posterior fascicular block with bifascicular block. The patient also has marked abnormality in the inferolateral leads. Lab shows white count of 4.1, hemoglobin 12, hematocrit 39.5, and platelet count of 187,000. Sodium is 134, potassium 4.7, BUN of 22, creatinine 1.2, and glucose 75. Troponin is negative x2. ASSESSMENT AND PLAN: 1. Shortness of breath, this is due to congestive heart failure exacerbation. His echocardiogram on 11/16/2017 showed ejection fraction of only 15 to 20%. I will start the patient on Lasix 40 mg IV b.i.d. and resume his heart failure medications. The patient, however, needs to be off of Coreg in view of the patient's active cocaine use. Resume lisinopril and Aldactone. 2. Human immunodeficiency virus. 3. Hepatitis C. 4. Cocaine use. We will get the urine toxicology screen for further evaluation and management. Thank you very much, Dr. Rodriguez, for allowing me to participate in the care of this patient. Please do not hesitate to contact me for any questions regarding my evaluation. Case was discussed with emergency room physician. Bony Cifuentes M.D. DR: TURNER JOB#: [id number] CC:
[2017-12-04] MEDS: Norco 5mg/325mg tab ORAL PRN (21:18)
[2017-12-04] MEDS: Lisinopril 10mg tab ORAL SCH (21:18)
--- NOTE | 2017-12-04 23:15 | History and Physical Report ---
DATE OF ADMISSION: 12/04/2017 CHIEF COMPLAINT: The patient is a 57-year-old male, presents with chief complaint of shortness of breath. HISTORY OF PRESENT ILLNESS: The patient was admitted to [facility] from 11/16/2017 to 11/19/2017. The patient was diagnosed with acute congestive heart failure exacerbation. The patient left before complete workup could be performed. The patient states he began to experience bilateral leg swelling last evening on 12/03/2017. The patient also began to experience shortness of breath. This has worsened over the last 24 hours. The patient presented to [facility]. The patient is admitted for dyspnea and acute exacerbation of congestive heart failure. REVIEW OF SYSTEMS: CONSTITUTIONAL: The patient denies weight loss or weight gain. The patient does complain of subjective fevers and chills. HEENT: The patient denies ear or throat pain. The patient denies headache. CARDIOVASCULAR: The patient denies palpitations or chest pain. CHEST: The patient complains of wheezes and shortness of breath. ABDOMEN: The patient denies nausea, vomiting, diarrhea, or constipation. GENITOURINARY: The patient denies dysuria or increased frequency of urination. NEUROMUSCULAR: The patient denies seizures or generalized weakness. PAST MEDICAL HISTORY: Significant for: 1. Congestive heart failure as above. 2. HIV, which was diagnosed in 1983. 3. History of hepatitis C. PAST SURGICAL HISTORY: Significant for hemorrhoidectomy. CURRENT MEDICATIONS: 1. Prezcobix one tablet p.o. daily. 2. Cymbalta 30 mg p.o. daily. 3. Lasix 40 mg p.o. daily. 4. Triumeq one tablet p.o. daily. 5. Multivitamin p.o. daily. ALLERGIES: Sulfa. SOCIAL HISTORY: The patient is single and lives alone. The patient denies tobacco use, having quit six years ago. The patient denies alcohol use. PHYSICAL EXAMINATION: VITAL SIGNS: Temperature 97.2, respirations 20, pulse 98, blood pressure 110/63, and pulse oximetry 96% on room air. GENERAL: The patient is a well-developed and well-nourished male, in no apparent distress. HEENT: Eyes, pupils equal and responsive to light and accommodation. Extraocular movements are intact. NECK: Supple without lymphadenopathy. CHEST: Lungs are clear to auscultation bilaterally without wheezes or rales. CARDIOVASCULAR: Regular rhythm and rate. S1, S2 are normal without murmurs, rubs, or gallops. ABDOMEN: Soft, nontender, and nondistended with positive bowel sounds. No evidence of hepatosplenomegaly. No rebound or guarding noted. EXTREMITIES: Negative for clubbing, cyanosis, or edema. RECTAL: Refused. GENITAL: Refused. NEUROLOGIC: Cranial nerves II through XII are grossly intact without focal deficits. Motor strength is 5/5 bilaterally. Deep tendon reflexes are 2+ plantar. LABORATORY STUDIES: WBC 4.1, hemoglobin 12.0, hematocrit 39.5, and platelets 187,000. Sodium 134, potassium 4.7, chloride 103, CO2 25, BUN 23, creatinine 1.2, and glucose 75. Troponin normal at 0.009. BNP elevated at 4183. Chest x-ray revealed no acute disease. ASSESSMENT: This is a 57-year-old male: 1. Dyspnea/congestive heart failure. Cardiology consultation has been obtained with Dr. oBny Cifuentes. A recent echocardiogram revealed an ejection fraction of 15%. We will follow recommendations of Cardiology. The patient is currently on intravenous Lasix. 2. Human immunodeficiency virus. Continue Triumeq and Prezcobix as above. 3. Hepatitis C. The patient is status post treatment. Douglas Anthony M.D. DR: CARMENCITA JOB#: [id number] CC:
[2017-12-05 00:34] VITALS: BP 111/62
[2017-12-05] MEDS ORDERED: HydrOXYzine tab 25mg tab ORAL PRN (02:00)
[2017-12-05 04:00] VITALS: BP 137/96
[2017-12-05 08:00] VITALS: BP 109/84
[2017-12-05 08:25] LABS: BASOPHILS % (AUTO) 0.9 % (0.0-2.0); EOSINOPHILS % (AUTO) 3.8 % (0.0-3.0); HEMATOCRIT 39.9 % (42.0-52.0); HEMOGLOBIN 12.3 G/DL (14.2-18.0); LYMPHOCYTES % (AUTO) 18.8 % (20.0-45.0); MEAN CORPUSCULAR VOLUME 78 FL (80-99); MONOCYTES % (AUTO) 14.3 % (1.0-10.0); NEUTROPHILS % (AUTO) 62.2 % (45.0-75.0); PLATELET COUNT 173 K/UL (150-450); RED BLOOD COUNT 5.11 M/UL (4.70-6.10); RED CELL DISTRIBUTION WIDTH 17.5 % (11.6-14.8); WHITE BLOOD COUNT 3.7 K/UL (4.8-10.8)
[2017-12-05 08:47] LABS: ANION GAP 5 mmol/L (5-15); BLOOD UREA NITROGEN 24 mg/dL (7-18); CALCIUM 8.3 MG/DL (8.5-10.1); CARBON DIOXIDE 27 MMOL/L (21-32); CHLORIDE 101 MMOL/L (98-107); CREATININE 1.2 MG/DL (0.55-1.30); POTASSIUM 5.1 MMOL/L (3.5-5.1); SODIUM 133 MMOL/L (136-145)
[2017-12-05] MEDS ORDERED: Lisinopril 10mg tab ORAL SCH (09:00)
--- NOTE | 2017-12-05 09:42 | Consultation ---
History of Present Illness General Date patient seen: Dec 05, 2017 Chief Complaint: General Complaint Present Illness HPI 57-year-old male with hx of CHF, HIV, Hep C, cocaine abuse, EF 15%, was recently at [facility] for CHF exacerbation presented to [facility] again to ask for the name of the technical project lead who saw him during previous admission. Patient had been having increased chest tightness. He had bilateral swelling of legs. He is admitted to telemetry for further management. Allergies: Coded Allergies: No Known Allergies (Unverified , 11/16/17) Medication History Scheduled Ascorbic Acid* (Vitamin C*), 500 MG ORAL DAILY, (Reported) Carvedilol (Coreg), 3.125 MG ORAL EVERY 12 HOURS Cholecalciferol (Vitamin D3)* (Vitamin D*), 1,000 UNIT ORAL DAILY, (Reported) Darunavir/Cobicistat (Prezcobix 800 mg-150 mg Tablet), 1 EACH PO DAILY, ( Reported) Duloxetine Hcl* (Cymbalta*), 30 MG ORAL DAILY, (Reported) Furosemide (Furosemide), 20 MG ORAL DAILY Furosemide* (Lasix*), 40 MG ORAL TWICE A DAY, (Reported) Glucosamine Sulfate 2KCL (Glucosamine), 1,000 MG PO DAILY, (Reported) Lisinopril* (Lisinopril*), 10 MG ORAL DAILY Multivitamins* (Multivitamins*), 1 TAB ORAL DAILY, (Reported) Spironolactone (Aldactone), 25 MG ORAL DAILY [Triumeq], 1 TAB PO DAILY, (Reported) Patient History Healthcare decision maker Resuscitation status Full Code Advanced Directive on File Past Medical/Surgical History Past Medical/Surgical History: (1) AIDS (2) EF 15% (3) Hepatitis C Review of Systems Respiratory: Reports: shortness of breath Physical Exam General Appearance: cachetic Lines, tubes and drains: peripheral HEENT: normocephalic, atraumatic Neck: non-tender, normal alignment Respiratory/Chest: chest wall non-tender, lungs clear, normal breath sounds Cardiovascular/Chest: normal peripheral pulses, normal rate Abdomen: normal bowel sounds, non tender, hyperactive bowel sounds Genitourinary/Rectal: normal genital exam Extremities: normal range of motion Last 24 Hour Vital Signs Date Time Temp Pulse Resp B/P (MAP) Pulse Ox O2 Delivery O2 Flow Rate FiO2 12/05/17 08:00 94.7 100 16 109/84 (92) 97 12/05/17 04:00 100 12/05/17 04:00 97.5 77 16 137/96 (110) 97 12/05/17 00:34 97.2 82 18 111/62 (78) 97 12/05/17 00:00 93 12/04/17 21:18 107/77 12/04/17 21:00 Room Air 12/04/17 20:00 98 12/04/17 19:59 97.0 93 19 107/77 (87) 100 12/04/17 17:21 Room Air 12/04/17 16:38 97.2 98 20 113/87 97 Nasal Cannula 2.0 12/04/17 15:12 98 20 113/87 97 Nasal Cannula 2.0 12/04/17 13:55 98 20 Room Air 12/04/17 13:55 97.2 99 12 114/85 100 Room Air 12/04/17 13:39 97.2 98 20 110/63 96 Room Air Intake and Output 12/04/17 12/05/17 19:00 07:00 Intake Total 270 ml Output Total 200 ml Balance 270 ml -200 ml Intake Oral 270 ml Output Urine Total 200 ml Laboratory Tests Test 12/04/17 14:05 12/05/17 08:00 White Blood Count 4.1 K/UL (4.8-10.8) L 3.7 K/UL (4.8-10.8) L Red Blood Count 5.04 M/UL (4.70-6.10) 5.11 M/UL (4.70-6.10) Hemoglobin 12.0 G/DL (14.2-18.0) L 12.3 G/DL (14.2-18.0) L Hematocrit 39.5 % (42.0-52.0) L 39.9 % (42.0-52.0) L Mean Corpuscular Volume 78 FL (80-99) L 78 FL (80-99) L Mean Corpuscular Hemoglobin 23.7 PG (27.0-31.0) L 24.1 PG (27.0-31.0) L Mean Corpuscular Hemoglobin Concent 30.3 G/DL (32.0-36.0) L 30.9 G/DL (32.0-36.0) L Red Cell Distribution Width 16.6 % (11.6-14.8) H 17.5 % (11.6-14.8) H Platelet Count 187 K/UL (150-450) 173 K/UL (150-450) Mean Platelet Volume 7.4 FL (6.5-10.1) 7.1 FL (6.5-10.1) Neutrophils (%) (Auto) 68.7 % (45.0-75.0) 62.2 % (45.0-75.0) Lymphocytes (%) (Auto) 13.1 % (20.0-45.0) L 18.8 % (20.0-45.0) L Monocytes (%) (Auto) 14.7 % (1.0-10.0) H 14.3 % (1.0-10.0) H Eosinophils (%) (Auto) 2.2 % (0.0-3.0) 3.8 % (0.0-3.0) H Basophils (%) (Auto) 1.3 % (0.0-2.0) 0.9 % (0.0-2.0) Sodium Level 134 MMOL/L (136-145) L 133 MMOL/L (136-145) L Potassium Level 4.7 MMOL/L (3.5-5.1) 5.1 MMOL/L (3.5-5.1) Chloride Level 103 MMOL/L (98-107) 101 MMOL/L (98-107) Carbon Dioxide Level 25 MMOL/L (21-32) 27 MMOL/L (21-32) Anion Gap 7 mmol/L (5-15) 5 mmol/L (5-15) Blood Urea Nitrogen 23 mg/dL (7-18) H 24 mg/dL (7-18) H Creatinine 1.2 MG/DL (0.55-1.30) 1.2 MG/DL (0.55-1.30) Estimat Glomerular Filtration Rate > 60 mL/min (>60) > 60 mL/min (>60) Glucose Level 75 MG/DL (74-106) 91 MG/DL (74-106) Calcium Level 8.4 MG/DL (8.5-10.1) L 8.3 MG/DL (8.5-10.1) L Total Bilirubin 0.5 MG/DL (0.2-1.0) Aspartate Amino Transf (AST/SGOT) 31 U/L (15-37) Alanine Aminotransferase (ALT/SGPT) 36 U/L (12-78) Alkaline Phosphatase 89 U/L (46-116) Total Creatine Kinase 76 U/L (26-308) Creatine Kinase MB 1.3 NG/ML (0.0-3.6) Creatine Kinase MB Relative Index 1.7 Troponin I 0.009 ng/mL (0.000-0.056) 0.007 ng/mL (0.000-0.056) Pro-B-Type Natriuretic Peptide 4183 pg/mL (0-125) H 3518 pg/mL (0-125) H Total Protein 8.1 G/DL (6.4-8.2) Albumin 2.6 G/DL (3.4-5.0) L Globulin 5.5 g/dL Albumin/Globulin Ratio 0.5 (1.0-2.7) L Height (Feet): 5 Height (Inches): 10.00 Weight (Pounds): 150 Medications Current Medications Medications (Trade) Dose Ordered Sig/Sidney Route PRN Reason Start Time Stop Time Status Last Admin Dose Admin Acetaminophen (Tylenol) 650 mg Q6H PRN ORAL Mild Pain/Temp > 100.5 12/04/17 20:28 01/03/18 20:27 Acetaminophen/ Hydrocodone Bitart ([place] 5/325) 1 tab Q6H PRN ORAL For severe pain 08/1512/04/17 20:28 12/11/17 20:27 12/04/17 21:18 Furosemide (Lasix) 40 mg Q12HR@0800,2000 IV 12/04/17 20:00 01/03/18 19:59 12/04/17 21:18 Hydroxyzine HCl (Atarax) 25 mg Q6H PRN ORAL Itching 12/05/17 02:00 01/04/18 01:59 12/05/17 03:01 Lisinopril (Zestril) 10 mg EVERY 12 HOURS ORAL 12/04/17 21:00 01/03/18 20:59 12/04/17 21:18 Potassium Chloride (K-Dur) 20 meq DAILY ORAL 12/05/17 09:00 01/04/18 08:59 Assessment/Plan Problem List: (1) Acute systolic congestive heart failure, NYHA class 4 ICD Codes: I50.21 - Acute systolic (congestive) heart failure SNOMED: 679219833, 500347822, 270682528 (2) EF 15% (3) Severe protein-calorie malnutrition ICD Codes: E43 - Unspecified severe protein-calorie malnutrition SNOMED: 692602275 (4) AIDS ICD Codes: B20 - Human immunodeficiency virus [HIV] disease SNOMED: 96425389 (5) Cocaine abuse ICD Codes: F14.10 - Cocaine abuse, uncomplicated SNOMED: 12220697 (6) Hepatitis C ICD Codes: B19.20 - Unspecified viral hepatitis C without hepatic coma SNOMED: 00818517 Assessment/Plan aggressive diuresis respiratory treatment f/u cardiology recommendations watch electrolytes, BNP, bun/creatinine daily watch intake and output. dvt prophylaxis Abdi Todd MD Dec 05, 2017 09:42
[2017-12-05] MEDS: Norco 5mg/325mg tab ORAL PRN (10:07)
[2017-12-05] MEDS: Lisinopril 10mg tab ORAL SCH ×2 (10:07→20:40)
[2017-12-05 12:00] VITALS: BP 109/79
--- NOTE | 2017-12-05 14:59 | Cardiology Report ---
APPROVED REPORT EKG Measurement Heart [id number] SD 144P55 [id number] Normal sinus rhythm Right atrial enlargement Right bundle branch block Left posterior fascicular block Bifascicular block Marked T wave abnormality, consider inferolateral ischemia Abnormal ECG
--- NOTE | 2017-12-05 15:16 | Cardiac Electrophysiology PN ---
Assessment/Plan Assessment/Plan 1. Shortness of breath, due to congestive heart failure exacerbation. His echocardiogram on 11/16/2017 showed ejection fraction of only 15 to 20%. On Lasix 40 mg IV b.i.d. and off of Coreg in view of the patient's active cocaine use. On lisinopril and Aldactone. 2. Human immunodeficiency virus. 3. Hepatitis C. 4. Cocaine use. Subjective Subjective Refused LE Duplex Objective Last 24 Hour Vital Signs Date Time Temp Pulse Resp B/P (MAP) Pulse Ox O2 Delivery O2 Flow Rate FiO2 12/05/17 12:00 97.4 106 20 109/79 (89) 100 12/05/17 12:00 97 12/05/17 10:37 94.7 12/05/17 10:07 109/84 12/05/17 09:00 Room Air 12/05/17 08:00 98 12/05/17 08:00 94.7 100 16 109/84 (92) 97 12/05/17 04:00 100 12/05/17 04:00 97.5 77 16 137/96 (110) 97 12/05/17 00:34 97.2 82 18 111/62 (78) 97 12/05/17 00:00 93 12/04/17 21:18 107/77 12/04/17 21:00 Room Air 12/04/17 20:00 98 12/04/17 19:59 97.0 93 19 107/77 (87) 100 12/04/17 17:21 Room Air 12/04/17 16:38 97.2 98 20 113/87 97 Nasal Cannula 2.0 Intake and Output 12/04/17 12/05/17 19:00 07:00 Intake Total 270 ml Output Total 200 ml Balance 270 ml -200 ml Intake Oral 270 ml Output Urine Total 200 ml Laboratory Tests Test 12/05/17 08:00 White Blood Count 3.7 K/UL (4.8-10.8) L Red Blood Count 5.11 M/UL (4.70-6.10) Hemoglobin 12.3 G/DL (14.2-18.0) L Hematocrit 39.9 % (42.0-52.0) L Mean Corpuscular Volume 78 FL (80-99) L Mean Corpuscular Hemoglobin 24.1 PG (27.0-31.0) L Mean Corpuscular Hemoglobin Concent 30.9 G/DL (32.0-36.0) L Red Cell Distribution Width 17.5 % (11.6-14.8) H Platelet Count 173 K/UL (150-450) Mean Platelet Volume 7.1 FL (6.5-10.1) Neutrophils (%) (Auto) 62.2 % (45.0-75.0) Lymphocytes (%) (Auto) 18.8 % (20.0-45.0) L Monocytes (%) (Auto) 14.3 % (1.0-10.0) H Eosinophils (%) (Auto) 3.8 % (0.0-3.0) H Basophils (%) (Auto) 0.9 % (0.0-2.0) Sodium Level 133 MMOL/L (136-145) L Potassium Level 5.1 MMOL/L (3.5-5.1) Chloride Level 101 MMOL/L (98-107) Carbon Dioxide Level 27 MMOL/L (21-32) Anion Gap 5 mmol/L (5-15) Blood Urea Nitrogen 24 mg/dL (7-18) H Creatinine 1.2 MG/DL (0.55-1.30) Estimat Glomerular Filtration Rate > 60 mL/min (>60) Glucose Level 91 MG/DL (74-106) Calcium Level 8.3 MG/DL (8.5-10.1) L Troponin I 0.007 ng/mL (0.000-0.056) Pro-B-Type Natriuretic Peptide 3518 pg/mL (0-125) H Objective HEAD AND NECK: Shows positive JVD. LUNGS: Decreased breath sounds. CARDIOVASCULAR: Regular S1 and S2 with no gallop. ABDOMEN: Soft. EXTREMITIES: 2+ bilateral pitting edema. Bony Cifuentes MD Dec 05, 2017 15:16
--- NOTE | 2017-12-05 15:42 | Consultation ---
Consult Note Consult Note ID # [id number] Mayco Lenz MD Dec 05, 2017 15:42
--- NOTE | 2017-12-05 16:30 | Internal Med Progress Note ---
Subjective Date of Service: Dec 05, 2017 Physician Name Douglas Anthony Attending Physician Arcadio Rodriguez MD Current Medications Medications (Trade) Dose Ordered Sig/Sidney Route PRN Reason Start Time Stop Time Status Last Admin Dose Admin Acetaminophen (Tylenol) 650 mg Q6H PRN ORAL Mild Pain/Temp > 100.5 12/04/17 20:28 01/03/18 20:27 Acetaminophen/ Hydrocodone Bitart ([place] 5/325) 1 tab Q6H PRN ORAL For severe pain 08/1512/04/17 20:28 12/11/17 20:27 12/05/17 10:07 Furosemide (Lasix) 40 mg Q12HR@0800,2000 IV 12/04/17 20:00 01/03/18 19:59 12/05/17 10:05 Hydroxyzine HCl (Atarax) 25 mg Q6H PRN ORAL Itching 12/05/17 02:00 01/04/18 01:59 12/05/17 03:01 Lisinopril (Zestril) 10 mg EVERY 12 HOURS ORAL 12/04/17 21:00 01/03/18 20:59 12/05/17 10:07 Potassium Chloride (K-Dur) 20 meq DAILY ORAL 12/05/17 09:00 01/04/18 08:59 Allergies: Coded Allergies: No Known Allergies (Unverified , 11/16/17) ROS Limited/Unobtainable: No Constitutional: Reports: no symptoms HEENT: Reports: no symptoms Cardiovascular: Reports: no symptoms Respiratory: Reports: shortness of breath Gastrointestinal/Abdominal: Reports: no symptoms Genitourinary: Reports: no symptoms Neurologic/Psychiatric: Reports: no symptoms Subjective 57 YO M admitted with dyspnea. Now CHF exacerbation. Cover for Int Med-Dr Rodriguez. Objective Last Vital Signs Date Time Temp Pulse Resp B/P (MAP) Pulse Ox O2 Delivery O2 Flow Rate FiO2 12/05/17 12:00 97.4 106 20 109/79 (89) 100 12/05/17 09:00 Room Air 12/04/17 16:38 2.0 General Appearance: WD/WN, no apparent distress, alert EENT: PERRL/EOMI, normal ENT inspection Neck: non-tender, normal alignment, supple, normal inspection Cardiovascular: normal peripheral pulses, normal rate, regular rhythm, no gallop/murmur, no JVD Respiratory/Chest: chest wall non-tender, no accessory muscle use, crackles/ rales, rhonchi - bilaterally, expiratory wheezing Abdomen: normal bowel sounds, non tender, soft, no organomegaly, no mass Extremities: normal range of motion, non-tender Edema: moderate edema Neurologic: planer tailer II-XII grossly normal, no motor/sensory deficits Skin: normal pigmentation, warm/dry Laboratory Tests Test 12/05/17 08:00 White Blood Count 3.7 K/UL (4.8-10.8) L Red Blood Count 5.11 M/UL (4.70-6.10) Hemoglobin 12.3 G/DL (14.2-18.0) L Hematocrit 39.9 % (42.0-52.0) L Mean Corpuscular Volume 78 FL (80-99) L Mean Corpuscular Hemoglobin 24.1 PG (27.0-31.0) L Mean Corpuscular Hemoglobin Concent 30.9 G/DL (32.0-36.0) L Red Cell Distribution Width 17.5 % (11.6-14.8) H Platelet Count 173 K/UL (150-450) Mean Platelet Volume 7.1 FL (6.5-10.1) Neutrophils (%) (Auto) 62.2 % (45.0-75.0) Lymphocytes (%) (Auto) 18.8 % (20.0-45.0) L Monocytes (%) (Auto) 14.3 % (1.0-10.0) H Eosinophils (%) (Auto) 3.8 % (0.0-3.0) H Basophils (%) (Auto) 0.9 % (0.0-2.0) Sodium Level 133 MMOL/L (136-145) L Potassium Level 5.1 MMOL/L (3.5-5.1) Chloride Level 101 MMOL/L (98-107) Carbon Dioxide Level 27 MMOL/L (21-32) Anion Gap 5 mmol/L (5-15) Blood Urea Nitrogen 24 mg/dL (7-18) H Creatinine 1.2 MG/DL (0.55-1.30) Estimat Glomerular Filtration Rate > 60 mL/min (>60) Glucose Level 91 MG/DL (74-106) Calcium Level 8.3 MG/DL (8.5-10.1) L Troponin I 0.007 ng/mL (0.000-0.056) Pro-B-Type Natriuretic Peptide 3518 pg/mL (0-125) H Intake and Output 12/04/17 12/05/17 19:00 07:00 Intake Total 270 ml Output Total 200 ml Balance 270 ml -200 ml Intake Oral 270 ml Output Urine Total 200 ml Assessment/Plan Problem List: (1) HIV disease Assessment & Plan: Continue HAART per ID (2) Shortness of breath (3) CHF exacerbation Assessment & Plan: Await echocardiogram. See cardiology note. (4) Hepatitis C (5) Peripheral edema Status: not improved Douglas Anthony MD Dec 05, 2017 16:30
[2017-12-05 20:00] VITALS: BP 120/88
[2017-12-06] VITALS: BP 129/87
[2017-12-06 04:00] VITALS: BP 118/83
--- NOTE | 2017-12-06 06:00 | Consultation ---
DATE OF CONSULTATION: 12/05/2017 INFECTIOUS DISEASE CONSULTATION CONSULTING PHYSICIAN: Mayco Lenz M.D. REQUESTING PHYSICIAN: Douglas Anthony M.D. REASON FOR CONSULTATION: Evaluation of the patient for HIV, history of hepatitis C, antiretroviral. HISTORY OF PRESENT ILLNESS: The patient is a 57-year-old male with multiple medical problems, as listed below, who is admitted to this medical center for bilateral lower extremity pain and shortness of breath. Chest x-ray has been unremarkable. The patient has occasional cough. The patient has history of mostly CHF exacerbation. The patient is noncompliant with taking his HIV medication. Recently, he had a CD4 count of less than 200 and with elevated viral load of 98,000. Infectious Disease consultation has been requested for further evaluation of the patient and need for antibiotic management/antivirals. PAST MEDICAL HISTORY: 1. History of hepatitis C. 2. History of HIV, diagnosed in 1983. Noncompliant with his medication. 3. History of CHF exacerbation. MEDICATIONS: Currently, off of antibiotics. The patient at home is on Triumeq and also Prezcobix. ALLERGIES: No known drug allergies. SOCIAL HISTORY: Ex-smoker. FAMILY HISTORY: Not contributing. REVIEW OF SYSTEMS: The patient overall is a poor historian. Much of the information I was able to gather is as mentioned above. PHYSICAL EXAMINATION: VITAL SIGNS: Temperature 97.4, pulse 86, respiratory rate 18, and blood pressure 109/79. HEENT: No pale conjunctivae. No icterus. NECK: No lymphadenopathy. CHEST: Coarse breathing sounds. HEART: S1 and S2. ABDOMEN: Soft and nontender. EXTREMITIES: No cyanosis. NEUROLOGIC: Awake. SKIN: The patient has mild discoloration of lower extremity; however, not tender to touch and cold to touch. No consistent with cellulitis. LABORATORY DATA: Hepatitis B and C antibody negative. HIV viral load 98,000 (11/18/2017). BUN 24 and creatinine 1.2. ALT, AST, and alkaline phosphatase are unremarkable. CD4 count 169 (11/18/2017). Chest x-ray, [facility], 12/04/2017. ASSESSMENT: 1. HIV. Noncompliant with his HIV medications (the patient admitted to take almost 50% of the time), CD4 count 169 (11/18/2017, viral load 98,000). 2. Afebrile. 3. No evidence of pneumonia, chest x-ray, [facility]. PLAN: 1. We will start the patient on Bactrim DS for PCP prophylaxis. 2. The patient will bring his medications to resume. 3. Monitor CBC. 4. Monitor BMP. 5. We will follow Cardiology recommendations. 6. followup (history of cocaine abuse). Thank you, Dr. Anthony, for allowing me to participate in the care of this patient. I will follow the patient with you during this hospitalization. Mayco Lenz M.D. DR: LENI JOB#: [id number] CC:
[2017-12-06 06:49] LABS: BASOPHILS % (AUTO) 0.5 % (0.0-2.0); EOSINOPHILS % (AUTO) 3.2 % (0.0-3.0); HEMATOCRIT 40.5 % (42.0-52.0); HEMOGLOBIN 12.8 G/DL (14.2-18.0); LYMPHOCYTES % (AUTO) 15.1 % (20.0-45.0); MEAN CORPUSCULAR VOLUME 77 FL (80-99); MONOCYTES % (AUTO) 13.1 % (1.0-10.0); NEUTROPHILS % (AUTO) 68.1 % (45.0-75.0); PLATELET COUNT 180 K/UL (150-450); RED BLOOD COUNT 5.25 M/UL (4.70-6.10); RED CELL DISTRIBUTION WIDTH 17.2 % (11.6-14.8); WHITE BLOOD COUNT 3.8 K/UL (4.8-10.8)
[2017-12-06 07:10] LABS: ALANINE AMINOTRANSFERASE 32 U/L (12-78); ALBUMIN 2.7 G/DL (3.4-5.0); ALBUMIN/GLOBULIN RATIO 0.5 (1.0-2.7); ALKALINE PHOSPHATASE 93 U/L (46-116); ANION GAP 6 mmol/L (5-15); ASPARTATE AMINO TRANSFERASE 27 U/L (15-37); BILIRUBIN,TOTAL 0.7 MG/DL (0.2-1.0); BLOOD UREA NITROGEN 25 mg/dL (7-18); CALCIUM 8.7 MG/DL (8.5-10.1); CARBON DIOXIDE 27 MMOL/L (21-32); CHLORIDE 99 MMOL/L (98-107); CREATININE 1.2 MG/DL (0.55-1.30); POTASSIUM 4.8 MMOL/L (3.5-5.1); SODIUM 132 MMOL/L (136-145)
[2017-12-06 08:00] VITALS: BP 115/69
[2017-12-06] MEDS: Lisinopril 10mg tab ORAL SCH (08:20)
[2017-12-06] MEDS ORDERED: Bactrim-DS 1 tab ORAL SCH (09:00)
--- NOTE | 2017-12-07 10:46 | Discharge Summary ---
Discharge Summary Discharge Summary _ DATE OF ADMISSION: 12/04/2017 DATE OF DISCHARGE: 12/06/2017 CONSULTANTS: Dr. Bony Lenz BRIEF HOSPITAL COURSE: Patient is a 57-year-old male, who presented with chief complaint of shortness of breath. Patient was admitted to [facility] from 2017 through 11/19/2017. The patient was diagnosed with acute congestive heart failure exacerbation. Patient left before complete workup could be performed. He stated he began to experience bilateral leg swelling on the evening of 2017. He also had shortness of breath that have worsened over 24 hours. He did not take his Lasix. He then presented to [place] emergency room. On evaluation at ED, vital signs were stable. Blood work did not show any leukocytoses, hemoglobin and hematocrit were stable. ProBNP was elevated to 4183. Troponin was negative. Patient admitted to cocaine use. EKG done showed normal sinus rhythm with interventricular block, T wave changes in inferior and lateral leads. EKG findings showed change from recent EKG done 2 weeks prior. His x-ray did not show any acute disease. He was then admitted to telemetry for evaluation of shortness of breath. He was seen by fork assembler. He was resumed on his anti-heart failure medications. He was given Lasix 40 mg IV twice a day. Resume lisinopril and Aldactone. Unable to be give Coreg due to cocaine use. He was followed by rehab specialist. He refused duplex study of the lower extremities. Patient had been noncompliant with taking his HIV medications. He was seen by ID specialist. He had CD4 count of less than 200 with elevated viral load of 98 ,000. He was given Bactrim DS for PCP prophylaxis. Full treatment was not carried out as patient left AGAINST MEDICAL ADVICE. FINAL DIAGNOSES: Shortness of breath secondary to acute systolic and diastolic CHF exacerbation HIV noncompliant with medications Hepatitis C Peripheral edema Severe cardiomyopathy Cocaine use Severe protein calorie malnutrition Hypokalemia Non-compliance DISPOSITION: Patient left AMA. I have been assigned to dictate discharge summary on this account, and I was not involved in the patient's management. Uzma Oviedo NP Dec 07, 2017 10:46
== END 2017-12-06 09:25 | disposition left against medical advice (07) | DRG 194 ==
LOC: EMR 14:00 → 2E 15:57 → EDBEDREQ 16:09
DX: I50.41 Acute combined systolic (congestive) and diastolic (congestive) heart failure (principal); E43 Unspecified severe protein-calorie malnutrition; B20 Human immunodeficiency virus [HIV] disease; I42.9 Cardiomyopathy, unspecified; I48.91 Unspecified atrial fibrillation; Z91.14 Patient's other noncompliance with medication regimen; B19.20 Unspecified viral hepatitis C without hepatic coma; F14.10 Cocaine abuse, uncomplicated; E87.6 Hypokalemia; Z87.891 Personal history of nicotine dependence; Z91.19 Patient's noncompliance with other medical treatment and regimen
CPT/HCPCS: 36415; 71045; 80048; 80053; 80307; 82550; 82553; 83880; 84484; 85025; 87081; 93005; 99285; J8499

== ENCOUNTER 2018-04-02 13:44 | Emergency (ER) | payer MEDICAID ==
[~2018-04-02] VITALS: Ht 177.8 cm; Wt 68.0 kg
[2018-04-02 14:00] VITALS: BP 141/72
--- NOTE | 2018-04-02 14:00 | NUR ---
ED Nurse Note: Pt walked in to ER c/o SOB for a week. o2 sat is 98% at room air. vss, pt aao x3-4, skin clean an intact.
[2018-04-02] MEDS ORDERED: UNOBMED (14:07)
--- NOTE | 2018-04-02 14:12 | Emergency Room Report ---
History of Present Illness General Chief Complaint: Dyspnea/Respdistress Source: Patient, Medical Record Present Illness HPI This is a 57-year-old male with a history of hypertension, congestive heart failure, who complains of having shortness of breath last several days. Associated with cough. He denies any fever. He does state he has some chills. He denies any chest pain. No other associated symptoms. He denies any abdominal pain or diaphoresis or nausea or vomiting. He states he has been taking his medications as directed. Allergies: Coded Allergies: No Known Allergies (Unverified , 11/16/17) Patient History Past Medical History: HTN, CHF Past Surgical History: none Pertinent Family History: none Nursing Documentation-PMH Past Medical History: No History, Except For Hx Cardiac Problems: Yes - chf,hep c, hiv Hx Hypertension: Yes Hx Asthma: Yes Hx Cancer: No Hx Gastrointestinal Problems: Yes Hx Neurological Problems: No Review of Systems All Other Systems: negative except mentioned in HPI Physical Exam Vital Signs Date Time Temp Pulse Resp B/P (MAP) Pulse Ox O2 Delivery O2 Flow Rate FiO2 04/02/18 13:46 98.1 96 26 90/59 98 Room Air General Appearance: well appearing, no apparent distress ENT: hearing grossly normal, normal voice Neck: full range of motion, supple Respiratory: crackles Cardiovascular #1: normal inspection, regular rate, rhythm, no edema Gastrointestinal: non tender, soft, no peritonitis, non-distended Musculoskeletal: normal inspection, back normal Psychiatric: normal inspection, judgement/insight normal Medical Decision Making Diagnostic Impression: Primary Impression: CHF exacerbation ER Course Patient presented with significant complexity of risk requiring multiple bedside evaluations. I was particularly very concerned about worsening renal failure, acute coronary syndrome, acute pulmonary edema, acute congestive heart failure, medication side effect, pulmonary embolism, pneumonia, sepsis. The patient was given a dose of 40 mg of Lasix. He has had very good diuresis. He has diuresed approximately 700 mL. The patient is not tachypneic, tachycardic, hypoxic. His oxygen saturation is 98% on room air. He states that he feels much better. I advised the patient that I would recommend him increasing his Lasix to 20 mg twice a day for the next 3 days. He should follow-up with his primary care physician as an outpatient the next 48 hours. I've also noted and learned that the patient has had increased fluid intake as well and I advised the patient to restrict his fluid intake. Laboratory Tests Test 04/02/18 14:30 White Blood Count 6.5 K/UL (4.8-10.8) Red Blood Count 4.94 M/UL (4.70-6.10) Hemoglobin 13.5 G/DL (14.2-18.0) L Hematocrit 42.9 % (42.0-52.0) Mean Corpuscular Volume 87 FL (80-99) Mean Corpuscular Hemoglobin 27.3 PG (27.0-31.0) Mean Corpuscular Hemoglobin Concent 31.4 G/DL (32.0-36.0) L Red Cell Distribution Width 15.3 % (11.6-14.8) H Platelet Count 181 K/UL (150-450) Mean Platelet Volume 7.2 FL (6.5-10.1) Neutrophils (%) (Auto) 54.9 % (45.0-75.0) Lymphocytes (%) (Auto) 22.9 % (20.0-45.0) Monocytes (%) (Auto) 18.2 % (1.0-10.0) H Eosinophils (%) (Auto) 2.4 % (0.0-3.0) Basophils (%) (Auto) 1.7 % (0.0-2.0) Sodium Level 132 MMOL/L (136-145) L Potassium Level 4.2 MMOL/L (3.5-5.1) Chloride Level 97 MMOL/L (98-107) L Carbon Dioxide Level 27 MMOL/L (21-32) Anion Gap 8 mmol/L (5-15) Blood Urea Nitrogen 21 mg/dL (7-18) H Creatinine 1.5 MG/DL (0.55-1.30) H Estimate Glomerular Filtration Rate 47.9 mL/min (>60) Glucose Level 94 MG/DL (74-106) Calcium Level 8.6 MG/DL (8.5-10.1) Total Bilirubin 0.8 MG/DL (0.2-1.0) Aspartate Amino Transferase (AST) 80 U/L (15-37) H Alanine Aminotransferase (ALT) 97 U/L (12-78) H Alkaline Phosphatase 70 U/L (46-116) Troponin I 0.035 ng/mL (0.000-0.056) Pro-B-Type Natriuretic Peptide 3965 pg/mL (0-125) H Total Protein 8.7 G/DL (6.4-8.2) H Albumin 2.7 G/DL (3.4-5.0) L Globulin 6.0 g/dL Albumin/Globulin Ratio 0.5 (1.0-2.7) L EKG Diagnostic Results EKG Time: 14:11 Rate: normal Rhythm: NSR ST Segments: other - Left bundle branch block Chest X-Ray Diagnostic Results Chest X-Ray Diagnostic Results : Chest X-Ray Ordered: Yes # of Views/Limited/Complete: 1 View Indication: Shortness of Breath EP Interpretation: No Interpretation: no consolidation Last Vital Signs Date Time Temp Pulse Resp B/P (MAP) Pulse Ox O2 Delivery O2 Flow Rate FiO2 04/02/18 13:46 98.1 96 26 90/59 98 Room Air Disposition: HOME, SELF-CARE Condition: Stable Patient Instructions: Shortness of Breath, Vset-yi-[id number] Additional Instructions: Take your Furosemide 20mg twice a day for the next 3 days RIN SRINIVASAN Apr 02, 2018 14:12
[2018-04-02] MEDS ORDERED: Albuterol ud Inhalation HHN ONE (14:15)
[2018-04-02] MEDS ORDERED: Ipratropium 0.02% Inh Soln 2.5ml UD HHN ONE (14:15)
[2018-04-02 14:55] LABS: BASOPHILS % (AUTO) 1.7 % (0.0-2.0); EOSINOPHILS % (AUTO) 2.4 % (0.0-3.0); HEMATOCRIT 42.9 % (42.0-52.0); HEMOGLOBIN 13.5 G/DL (14.2-18.0); LYMPHOCYTES % (AUTO) 22.9 % (20.0-45.0); MEAN CORPUSCULAR VOLUME 87 FL (80-99); MONOCYTES % (AUTO) 18.2 % (1.0-10.0); NEUTROPHILS % (AUTO) 54.9 % (45.0-75.0); PLATELET COUNT 181 K/UL (150-450); RED BLOOD COUNT 4.94 M/UL (4.70-6.10); RED CELL DISTRIBUTION WIDTH 15.3 % (11.6-14.8); WHITE BLOOD COUNT 6.5 K/UL (4.8-10.8)
[2018-04-02 15:06] LABS: ANION GAP 8 mmol/L (5-15); BLOOD UREA NITROGEN 21 mg/dL (7-18); CALCIUM 8.6 MG/DL (8.5-10.1); CARBON DIOXIDE 27 MMOL/L (21-32); CHLORIDE 97 MMOL/L (98-107); CREATININE 1.5 MG/DL (0.55-1.30); POTASSIUM 4.2 MMOL/L (3.5-5.1); SODIUM 132 MMOL/L (136-145)
--- NOTE | 2018-04-02 15:15 | Diagnostic Imaging Report ---
Indication: Dyspnea Comparison: 12/04/2017 A single view chest radiograph was obtained. Findings: Cardiomediastinal appearance is within normal limits for age. The lungs are clear. Pulmonary vascularity is appropriate. The diaphragmatic contour is smooth and costophrenic angles are sharp. No pleural effusions are identified. The bones are unremarkable. Impression: No acute findings
[2018-04-02 15:19] LABS: ALANINE AMINOTRANSFERASE 97 U/L (12-78); ALBUMIN 2.7 G/DL (3.4-5.0); ALBUMIN/GLOBULIN RATIO 0.5 (1.0-2.7); ALKALINE PHOSPHATASE 70 U/L (46-116); ASPARTATE AMINO TRANSFERASE 80 U/L (15-37); BILIRUBIN,TOTAL 0.8 MG/DL (0.2-1.0)
[2018-04-02 16:22] VITALS: BP 119/64
--- NOTE | 2018-04-02 16:48 | NUR ---
ED Nurse Note: pt is requesting transportation and refusing bus tab. will call taxi. he was cleared to be discharged by ERMD.
[2018-04-02 16:56] VITALS: BP 140/85
--- NOTE | 2018-04-02 16:58 | NUR ---
ER DISCHARGE NOTE: Patient is cleared to be discharged per ERMD, pt is aox4, on room air, with stable vital signs. pt was given dc and prescription instructions, pt was able to verbalize understanding, pt id band and iv site removed without complications. pt was provided taxi per request. pt is able to ambulate with steady gait. pt took all belongings.
--- NOTE | 2018-04-03 17:24 | Cardiology Report ---
APPROVED REPORT EKG Measurement Heart [id number] Normal sinus rhythm Biatrial enlargement Left bundle branch block Abnormal ECG
== END 2018-04-02 17:00 | disposition home or self-care (01) ==
LOC: EMR 14:24
DX: I11.0 Hypertensive heart disease with heart failure (principal); I50.9 Heart failure, unspecified; J45.909 Unspecified asthma, uncomplicated
CPT/HCPCS: 36415; 71045; 80053; 83880; 84484; 85025; 93005; 94640; 94664; 96374; 99284; J1940

== ENCOUNTER 2018-04-16 16:20 | Emergency (ER) | payer MEDICAID, OTHER ==
[~2018-04-16] VITALS: Ht 177.8 cm; Wt 68.0 kg
[~2018-04-16 16:20] MED LIST changes: +UNOBMED
[2018-04-16 17:30] VITALS: BP 102/73
--- NOTE | 2018-04-16 17:31 | NUR ---
ED Nurse Note:chest x-ray was done
[2018-04-16 17:47] VITALS: BP 102/73
--- NOTE | 2018-04-16 17:48 | NUR ---
ER DISCHARGE NOTE: Patient is cleared to be discharged per ERMD, pt is aox4, on room air, with stable vital signs. pt was given dc and prescription instructions, pt was able to verbalize understanding, pt is able to ambulate with steady gait. pt took all belongings.
--- NOTE | 2018-04-16 17:52 | Emergency Room Report ---
History of Present Illness General Chief Complaint: Upper Respiratory Illness Source: Patient Present Illness HPI 57-year-old male presents emergency department complaining of chronic cough 2 months. He was sent here by his primary care provider for x-ray. Patient denies pain, fevers, sputum production, chills, history of immunocompromise he denies smoking history. Patient reports that he does use an inhaler on occasion. Denies CP, Palpitations, LOC, AMS, dizziness, Changes in Vision, Sensation, paresthesias, or a sudden severe headache. pt. with hx of CHF. denies swelling in the LE's or dyspnea on exertion. Allergies: Coded Allergies: No Known Allergies (Unverified , 11/16/17) Patient History Past Medical History: see triage record Past Surgical History: none Pertinent Family History: none Reviewed Nursing Documentation: PMH: Agreed; PSxH: Agreed Nursing Documentation-PMH Hx Cardiac Problems: Yes - chf,hep c, hiv Hx Hypertension: Yes Hx Asthma: Yes Hx Cancer: No Hx Gastrointestinal Problems: Yes Hx Neurological Problems: No Review of Systems All Other Systems: negative except mentioned in HPI Physical Exam Vital Signs Date Time Temp Pulse Resp B/P (MAP) Pulse Ox O2 Delivery O2 Flow Rate FiO2 04/16/18 16:24 98.8 78 14 102/73 98 Room Air Sp02 EP Interpretation: reviewed, normal General Appearance: no apparent distress, alert, GCS 15, non-toxic Head: normocephalic, atraumatic Eyes: bilateral eye normal inspection, bilateral eye PERRL ENT: hearing grossly normal, normal voice, other - very poor denition/ missing teeth Neck: full range of motion Respiratory: chest non-tender, lungs clear, normal breath sounds, no respiratory distress, no wheezing, speaking full sentences Cardiovascular #1: regular rate, rhythm, no edema Musculoskeletal: back normal, gait/station normal, normal range of motion, non- tender Neurologic: alert, oriented x3, responsive, motor strength/tone normal, sensory intact, speech normal, grossly normal Psychiatric: judgement/insight normal Skin: normal color, no rash, warm/dry, well hydrated Medical Decision Making PA Attestation Dr. Ny is my supervising Physician whom patient management has been discussed with. Diagnostic Impression: Primary Impression: Bronchitis ER Course 57-year-old male presents emergency department complaining of chronic cough 2 months. He was sent here by his primary care provider for x-ray. Patient denies pain, fevers, sputum production, chills, history of immunocompromise he denies smoking history. Patient reports that he does use an inhaler on occasion. Denies CP, Palpitations, LOC, AMS, dizziness, Changes in Vision, Sensation, paresthesias, or a sudden severe headache. pt. with hx of CHF. denies swelling in the LE's or dyspnea on exertion. Ddx considered but are not limited to URI, pneumonia, PE, strep pharyngitis, meningitis, CHF, bronchitis. Vital signs: Pt. is afebrile, the remaining VS are WNL H&PE are most consistent with URI- no meningeal signs, oropharynx is not involved, no evidence of bacterial infection at this time. ORDERS: none required at this time, the diagnosis is clinical ED INTERVENTIONS: None required at this time. DISCHARGE: At this time pt. is stable for d/c to home. Will provide printed patient care instructions, and any necessary prescriptions. Care plan and follow up instructions have been discussed with the patient prior to discharge. Chest X-Ray Diagnostic Results Chest X-Ray Diagnostic Results : Chest X-Ray Ordered: Yes # of Views/Limited/Complete: 1 View Indication: Shortness of Breath EP Interpretation: Yes PA Xray: Interpretation reviewed Interpretation: no consolidation, no effusion, no pneumothorax, other - consistent with bronchitis appearance Impression: No acute disease Electronically Signed by: Carmen Rivas PA-C Last Vital Signs Date Time Temp Pulse Resp B/P (MAP) Pulse Ox O2 Delivery O2 Flow Rate FiO2 04/16/18 17:30 78 14 Room Air 04/16/18 17:30 98.8 102/73 98 Disposition: HOME, SELF-CARE Condition: Stable Scripts Codeine/Promethazine Hcl* (PROMETHAZINE-CODEINE SYRUP*) 118 Ml Syrup 5 ML ORAL Q6HR PRN for For Cough, #120 ML 0 Refills Prov: Carmen Rivas 04/16/18 Albuterol Sulfate* (ALBUTEROL SULFATE MDI*) 8.5 Gm Hfa.aer.ad 2 PUFF INH Q3H, #1 INH 0 Refills Prov: Carmen Rivas 04/16/18 Referrals: [facility],REFERRING (PCP) Patient Instructions: Acute Bronchitis, [id number] Additional Instructions: Follow up with a Primary Care Provider in 3-5 days, even if your symptoms have resolved. --Please review list of primary care clinics, if you do not already have a primary care provider Return sooner to ED if new symptoms occur, or current symptoms become worse. Do not drink alcohol, drive, or operate heavy machinery while taking cough syrup as this may cause drowsiness. - Please note that this Emergency Department Report was dictated using [employer] technology software, occasionally this can lead to erroneous entry secondary to interpretation by the dictation equipment. Carmen Rivas Apr 16, 2018 17:52
[2018-04-16] MEDS ORDERED: ALBUTEROL SULF8.5 GM INH (17:54)
[2018-04-16] MEDS ORDERED: PROMETHAZINE-C118 M1 ORAL (17:54)
--- NOTE | 2018-04-17 11:16 | Diagnostic Imaging Report ---
Indication: Chest pain Technique: One view of the chest Comparison: 04/02/2018 Findings: Lungs and pleural spaces are clear. Heart size is upper limits normal. No significant interim change Impression: No acute process
== END 2018-04-16 18:00 | disposition home or self-care (01) ==
LOC: EMR 17:01
DX: J40 Bronchitis, not specified as acute or chronic (principal); I50.9 Heart failure, unspecified; B19.20 Unspecified viral hepatitis C without hepatic coma; B20 Human immunodeficiency virus [HIV] disease
CPT/HCPCS: 71045; 99283

== ENCOUNTER 2018-05-21 09:44 | Emergency (ER) | payer OTHER ==
[~2018-05-21] VITALS: Ht 177.8 cm; Wt 72.6 kg
[~2018-05-21 09:44] MED LIST changes: +ALBUTEROL SULF8.5 GM INH; +PROMETHAZINE-C118 M1 ORAL
--- NOTE | 2018-05-21 10:08 | Emergency Room Report ---
History of Present Illness General Chief Complaint: Abdominal Pain Source: Patient Present Illness HPI Patient has a history of HIV. Patient states that his last CD4 count was 250. Patient states that he thinks he has some bad fish a few days ago and has resulted in nausea vomiting diarrhea and abdominal pain. Patient complains of severe abdominal pain worse in the epigastrium. He denies prior history of surgery. He denies any fevers or chills. No other complaints are noted. Symptoms noted to be moderate to severe. He denies any cough runny nose or sore throat. He states that he is on retroviral therapy.No other modifying factors. No other associated signs and symptoms. No other complaints were noted. Allergies: Coded Allergies: SULFA (SULFONAMIDE ANTIBIOTICS) (Verified Allergy, Unknown, 05/21/18) Patient History Past Medical History: CHF, asthma, HIV, other - Hepatitis C Past Surgical History: none Social History: Denies: smoking, alcohol use, drug use Reviewed Nursing Documentation: PMH: Agreed; PSxH: Agreed Nursing Documentation-PMH Past Medical History: No History, Except For Hx Cardiac Problems: Yes - chronic heart failure, hepatitis c, human immunodeficiency virus Hx Hypertension: Yes Hx Asthma: Yes Hx Gastrointestinal Problems: Yes Review of Systems All Other Systems: negative except mentioned in HPI Physical Exam Vital Signs Date Time Temp Pulse Resp B/P (MAP) Pulse Ox O2 Delivery O2 Flow Rate FiO2 05/21/18 09:49 99.1 112 18 132/87 99 Room Air Sp02 EP Interpretation: reviewed, normal General Appearance: alert, moderate distress, thin, Chronically Ill Head: atraumatic Eyes: bilateral eye normal inspection ENT: hearing grossly normal, normal voice, other - Poor dentition Neck: normal inspection, full range of motion, supple, no bony tend Respiratory: normal inspection, lungs clear, normal breath sounds, no respiratory distress, no retraction, no wheezing Cardiovascular #1: regular rate, rhythm, no edema Gastrointestinal: normal inspection, normal bowel sounds, soft, no hernia, tenderness - Diffusely, worse epigastrium Genitourinary: no CVA tenderness Musculoskeletal: normal inspection, back normal, normal range of motion Neurologic: normal inspection, alert, responsive, speech normal Psychiatric: judgement/insight normal, anxious Skin: normal inspection, normal color, no rash Medical Decision Making Diagnostic Impression: Primary Impression: Enteritis Additional Impression: Abdominal pain ER Course Patient presents to the emergency department today complaining of abdominal pain. Differential considerations include acute pancreatitis, cholecystitis, gastritis, hepatitis, appendicitis just to name a few. Given the severity of the patient's presentation I felt this is a highly complex patient. This patient required extensive workup. Patient's laboratory workup was not impressive. However given patient's history HIV I felt that CT scan was indicated. Patient has some evidence of renal sufficiency therefore noncontrast CT scan was obtained. Noncontrast CT scan shows evidence of enteritis and possible colitis. Patient's history of eating bad fish is consistent with enteritis. Patient symptoms were significantly improved. Given patient's feeling much better with no definite evidence of elevated white blood cell count fever to suggest active infection we'll provide patient prescription for nausea medication. I did offer to admit the patient further evaluation treatment the patient declined. Patient states that he must get home. Patient is advised to return emergency room if he does not feel improved in 24 hours. And follow closely a primary care physician. He is also advised to return to be develop fever or bleeding per rectum is consistent with invasive diarrhea. Labs Test 05/21/18 10:15 05/21/18 11:20 White Blood Count 7.2 K/UL (4.8-10.8) Red Blood Count 5.59 M/UL (4.70-6.10) Hemoglobin 15.6 G/DL (14.2-18.0) Hematocrit 47.6 % (42.0-52.0) Mean Corpuscular Volume 85 FL (80-99) Mean Corpuscular Hemoglobin 27.9 PG (27.0-31.0) Mean Corpuscular Hemoglobin Concent 32.8 G/DL (32.0-36.0) Red Cell Distribution Width 17.0 % (11.6-14.8) Platelet Count 242 K/UL (150-450) Mean Platelet Volume 6.8 FL (6.5-10.1) Neutrophils (%) (Auto) 74.8 % (45.0-75.0) Lymphocytes (%) (Auto) 13.6 % (20.0-45.0) Monocytes (%) (Auto) 9.5 % (1.0-10.0) Eosinophils (%) (Auto) 0.8 % (0.0-3.0) Basophils (%) (Auto) 1.2 % (0.0-2.0) Sodium Level 135 MMOL/L (136-145) Potassium Level 3.8 MMOL/L (3.5-5.1) Chloride Level 104 MMOL/L (98-107) Carbon Dioxide Level 20 MMOL/L (21-32) Anion Gap 11 mmol/L (5-15) Blood Urea Nitrogen 15 mg/dL (7-18) Creatinine 1.5 MG/DL (0.55-1.30) Estimat Glomerular Filtration Rate 47.9 mL/min (>60) Glucose Level 104 MG/DL (74-106) Calcium Level 8.6 MG/DL (8.5-10.1) Total Bilirubin 0.8 MG/DL (0.2-1.0) Aspartate Amino Transf (AST/SGOT) 53 U/L (15-37) Alanine Aminotransferase (ALT/SGPT) 40 U/L (12-78) Alkaline Phosphatase 76 U/L (46-116) Total Protein 10.0 G/DL (6.4-8.2) Albumin 3.3 G/DL (3.4-5.0) Globulin 6.7 g/dL Albumin/Globulin Ratio 0.5 (1.0-2.7) Lipase 238 U/L (73-393) Urine Color Yellow Urine Appearance Clear Urine pH 5 (4.5-8.0) Urine Specific [place] 1.025 (1.005-1.035) Urine Protein 2+ (NEGATIVE) Urine Glucose (UA) Negative (NEGATIVE) Urine Ketones 1+ (NEGATIVE) Urine Blood 3+ (NEGATIVE) Urine Nitrite Negative (NEGATIVE) Urine Bilirubin Negative (NEGATIVE) Urine Urobilinogen 1 MG/DL (0.0-1.0) Urine Leukocyte Esterase 1+ (NEGATIVE) Urine RBC 2-4 /HPF (0 - 0) Urine WBC 2-4 /HPF (0 - 0) Urine Squamous Epithelial Cells Occasional /LPF Urine Bacteria Few /HPF (NONE) Urine Granular Casts 2-4 /LPF (NONE) CT/MRI/US Diagnostic Results CT/MRI/US Diagnostic Results : Imaging Test Ordered: CT abdomen and pelvis: Impression Impression: Limited assessment of the GI tract, due to lack of enteric contrast administration Fluid-filled and prominent distal small bowel with mild wall thickening. Fluid- filled proximal colon. Findings suggest enteritis, with possible associated colitis, etiology indeterminate. Haziness of the mesenteric fat likely relates to such Marked cardiomegaly Other findings as noted, including right sacroiliac joint degenerative changes, basilar pulmonary atelectatic changes, splenic calcification Last Vital Signs Date Time Temp Pulse Resp B/P (MAP) Pulse Ox O2 Delivery O2 Flow Rate FiO2 05/21/18 09:49 99.1 112 18 132/87 99 Room Air Status: improved Disposition: HOME, SELF-CARE Condition: Stable Scripts Ondansetron (Zofran) 4 Mg Tablet 4 MG ORAL Q6H PRN for Nausea & Vomiting, #20 TAB 0 Refills Prov: Sriram Nazario MD 05/21/18 Sriram Nazario MD May 21, 2018 10:08
[2018-05-21] MEDS ORDERED: Isovue-300 100ml vial INJ PRN (10:15)
[2018-05-21] MEDS ORDERED: Morphine Sulfate 4mg/ml Inj (IV USE ONLY) IVP ONE (10:15)
--- NOTE | 2018-05-21 10:25 | NUR ---
ED Nurse Note: pt presents with c/o abd pain with n/v/d x 4 days. states he cannot even stand up straight to walk as its so painful for him. pt attempting to get urine sample but unable to at this time. pt with active nausea no emesis. pt aware to remain npo at this time. interventions as noted. pt tolerates all well. meds given to pt for pain. labs pending. a/ox3. consent signed for radiology contrast.
[2018-05-21 10:40] VITALS: BP 131/92
[2018-05-21 10:58] LABS: ANION GAP 11 mmol/L (5-15); BASOPHILS % (AUTO) 1.2 % (0.0-2.0); BLOOD UREA NITROGEN 15 mg/dL (7-18); CALCIUM 8.6 MG/DL (8.5-10.1); CARBON DIOXIDE 20 MMOL/L (21-32); CHLORIDE 104 MMOL/L (98-107); CREATININE 1.5 MG/DL (0.55-1.30); EOSINOPHILS % (AUTO) 0.8 % (0.0-3.0); HEMATOCRIT 47.6 % (42.0-52.0); HEMOGLOBIN 15.6 G/DL (14.2-18.0); LYMPHOCYTES % (AUTO) 13.6 % (20.0-45.0); MEAN CORPUSCULAR VOLUME 85 FL (80-99); MONOCYTES % (AUTO) 9.5 % (1.0-10.0); NEUTROPHILS % (AUTO) 74.8 % (45.0-75.0); PLATELET COUNT 242 K/UL (150-450); POTASSIUM 3.8 MMOL/L (3.5-5.1); RED BLOOD COUNT 5.59 M/UL (4.70-6.10); SODIUM 135 MMOL/L (136-145); WHITE BLOOD COUNT 7.2 K/UL (4.8-10.8)
[2018-05-21 11:03] LABS: ALANINE AMINOTRANSFERASE 40 U/L (12-78); ALBUMIN 3.3 G/DL (3.4-5.0); ALBUMIN/GLOBULIN RATIO 0.5 (1.0-2.7); ALKALINE PHOSPHATASE 76 U/L (46-116); ASPARTATE AMINO TRANSFERASE 53 U/L (15-37); BILIRUBIN,TOTAL 0.8 MG/DL (0.2-1.0)
[2018-05-21 11:28] LABS: APPEARANCE,URINE CLEAR; BILIRUBIN, URINE NEGATIVE (NEGATIVE); GLUCOSE, URINE (UA) NEGATIVE (NEGATIVE); KETONES,URINE 1+ (NEGATIVE); LEUKOCYTE ESTERASE ,URINE 1+ (NEGATIVE); NITRITE,URINE NEGATIVE (NEGATIVE); PH,URINE 5 (4.5-8.0); PROTEIN,URINE 2+ (NEGATIVE); UROBILINOGEN,URINE 1 MG/DL (0.0-1.0)
--- NOTE | 2018-05-21 11:28 | NUR ---
ED Nurse Note: urine sent and pt to ct scan
[2018-05-21 11:41] LABS: COLOR,URINE YELLOW
--- NOTE | 2018-05-21 12:54 | Diagnostic Imaging Report ---
Indication: Nausea, vomiting, diarrhea, and abdominal pain, severe abdominal pain worse in the epigastrium Technique: Spiral acquisitions obtained through the abdomen and pelvis. No oral contrast utilized, per emergency room physician request No IV contrast utilized, per referring physician request.. Multiplanar reconstructions were generated. Total dose length product 584 mGycm. CTDIvol(s) 11 mGy. Dose reduction achieved using automated exposure control Comparison: None Findings: Lack of enteric contrast limits assessment of the GI tract. The proximal colon is fluid-filled, upper limits of normal in caliber. The distal ileum is prominent in caliber, diffusely fluid-filled with slight degree of wall thickening. The proximal small bowel is unremarkable in appearance. There is slight haziness of the fat of the mesentery. The appendix is normal. No evidence of diverticulosis or diverticulitis. No free or loculated intraperitoneal gas or fluid is evident. Lack of IV contrast was assessment of the solid organs. The liver, gallbladder, bile ducts, pancreas are unremarkable. A very faint punctate calcification is seen in the spleen. The adrenals and kidneys are unremarkable. No retroperitoneal or mesenteric mass or adenopathy. No pelvic mass or adenopathy. Calcifications are seen in the prostate. The bladder is nondistended, unremarkable. The included lung bases demonstrate some atelectatic changes bilaterally, left greater than right. The heart is markedly enlarged. The bones are unremarkable except for degenerative changes of the right sacroiliac joint. Impression: Limited assessment of the GI tract, due to lack of enteric contrast administration Fluid-filled and prominent distal small bowel with mild wall thickening. Fluid-filled proximal colon. Findings suggest enteritis, with possible associated colitis, etiology indeterminate. Haziness of the mesenteric fat likely relates to such Marked cardiomegaly Other findings as noted, including right sacroiliac joint degenerative changes, basilar pulmonary atelectatic changes, splenic calcification The CT scanner at [facility] is accredited by the [employer] and the scans are performed using protocols designed to limit radiation exposure to as low as reasonably achievable to attain images of sufficient resolution adequate for diagnostic evaluation.
[2018-05-21] MEDS ORDERED: ZOFRAN4 MG ORAL (13:07)
[2018-05-21 13:33] VITALS: BP 108/70
--- NOTE | 2018-05-21 13:33 | NUR ---
ER DISCHARGE NOTE: Patient is cleared to be discharged per ERMD, pt is aox4, on room air, with stable vital signs. pt was given dc and prescription instructions, pt was able to verbalize understanding, pt id band and iv site removed without complications. pt is able to ambulate with steady gait. pt took all belongings.
== END 2018-05-21 13:35 | disposition home or self-care (01) ==
LOC: EMR 10:10
DX: K52.9 Noninfective gastroenteritis and colitis, unspecified (principal); R10.9 Unspecified abdominal pain; R07.0 Pain in throat; B20 Human immunodeficiency virus [HIV] disease; Z86.19 Personal history of other infectious and parasitic diseases; I11.0 Hypertensive heart disease with heart failure; I50.9 Heart failure, unspecified; I51.7 Cardiomegaly
CPT/HCPCS: 36415; 74176; 80053; 81003; 83690; 85025; 96361; 96374; 96375; 99284; J2270; J2405

== ENCOUNTER 2018-08-31 19:04 | Inpatient (IN) | payer OTHER ==
[~2018-08-31] VITALS: Ht 170.2 cm; Wt 68.0 kg
[~2018-08-31 19:04] MED LIST changes: +ZOFRAN4 MG ORAL
--- NOTE | 2018-08-31 19:06 | NUR ---
ED Nurse Note: Walk-in patient presents with complaints of paroxysmal nocturnal dyspnea. Vital signs stable.
--- NOTE | 2018-08-31 19:27 | NUR ---
ED Nurse Note: LAKEISHAD is currently at bedside,
[2018-08-31 19:47] LABS: ANION GAP 4 mmol/L (5-15); BLOOD UREA NITROGEN 24 mg/dL (7-18); CALCIUM 8.5 MG/DL (8.5-10.1); CARBON DIOXIDE 27 MMOL/L (21-32); CHLORIDE 105 MMOL/L (98-107); CREATININE 1.4 MG/DL (0.55-1.30); POTASSIUM 4.4 MMOL/L (3.5-5.1); SODIUM 136 MMOL/L (136-145)
[2018-08-31 19:53] VITALS: BP 118/87
[2018-08-31 20:02] LABS: ALANINE AMINOTRANSFERASE 77 U/L (12-78); ALBUMIN 3.1 G/DL (3.4-5.0); ALBUMIN/GLOBULIN RATIO 0.6 (1.0-2.7); ALKALINE PHOSPHATASE 96 U/L (46-116); ASPARTATE AMINO TRANSFERASE 80 U/L (15-37); BILIRUBIN,TOTAL 0.5 MG/DL (0.2-1.0); CKMB 1.7 NG/ML (0.0-3.6); CREATINE KINASE 107 U/L (26-308)
--- NOTE | 2018-08-31 20:02 | Diagnostic Imaging Report ---
EXAM: XR Chest, 1 View CLINICAL HISTORY: SOB TECHNIQUE: Frontal view of the chest. COMPARISON: 04/16/18 FINDINGS: Lungs: The lungs are grossly clear. Pleural space: No plain film evidence for pneumothorax. Heart: Prominence of the cardiac silhouette. Mediastinum: Unremarkable. Bones/joints: Unremarkable. IMPRESSION: Prominence of the cardiac silhouette.
--- NOTE | 2018-08-31 20:04 | NUR ---
ED Nurse Note: Patient attempting to rest, having difficulty with breathin while sleeping, monitor detects apnea. Patient repositioned to high fowlers for ease of breathing. Vital signs stable.
[2018-08-31 20:05] LABS: BASOPHILS % (AUTO) 1.1 % (0.0-2.0); EOSINOPHILS % (AUTO) 3.4 % (0.0-3.0); HEMATOCRIT 40.7 % (42.0-52.0); HEMOGLOBIN 13.4 G/DL (14.2-18.0); LYMPHOCYTES % (AUTO) 27.6 % (20.0-45.0); MEAN CORPUSCULAR VOLUME 86 FL (80-99); MONOCYTES % (AUTO) 14.2 % (1.0-10.0); NEUTROPHILS % (AUTO) 53.8 % (45.0-75.0); PLATELET COUNT 143 K/UL (150-450); RED BLOOD COUNT 4.75 M/UL (4.70-6.10); RED CELL DISTRIBUTION WIDTH 14.3 % (11.6-14.8); WHITE BLOOD COUNT 4.3 K/UL (4.8-10.8)
--- NOTE | 2018-08-31 21:07 | Emergency Room Report ---
History of Present Illness General Chief Complaint: Dyspnea/Respdistress Source: Patient Present Illness HPI 58-year-old male presents ED for evaluation. Complaining of shortness of breath for the last 3 days. Worse with lying flat and with walking. History of CHF. States he ran out of his medications 3 days ago. Notes some leg swelling as well. Denies chest pain. Denies fevers or chills. No other aggravating relieving factors. Denies any other associated symptoms Allergies: Coded Allergies: SULFA (SULFONAMIDE ANTIBIOTICS) (Verified Allergy, Unknown, 05/21/18) Patient History Past Medical History: CHF, HIV Past Surgical History: none Pertinent Family History: none Social History: Denies: smoking, alcohol use, drug use Immunizations: UTD Reviewed Nursing Documentation: PMH: Agreed; PSxH: Agreed Nursing Documentation-PMH Past Medical History: No History, Except For Hx Cardiac Problems: Yes - chronic heart failure, hepatitis c, human immunodeficiency virus Hx Hypertension: Yes Hx Asthma: Yes Hx Cancer: No Hx Gastrointestinal Problems: Yes Hx Neurological Problems: No Review of Systems All Other Systems: negative except mentioned in HPI Physical Exam Vital Signs Date Time Temp Pulse Resp B/P (MAP) Pulse Ox O2 Delivery O2 Flow Rate FiO2 08/31/18 19:05 98.1 91 18 118/87 (97) 100 08/31/18 19:53 Room Air Sp02 EP Interpretation: reviewed, normal General Appearance: no apparent distress, alert, GCS 15, non-toxic Head: normocephalic, atraumatic Eyes: bilateral eye normal inspection, bilateral eye PERRL ENT: hearing grossly normal, normal pharynx, no angioedema, normal voice Neck: full range of motion, supple/symm/no masses Respiratory: chest non-tender, lungs clear, normal breath sounds, speaking full sentences Cardiovascular #1: regular rate, rhythm, no edema Cardiovascular #2: 2+ carotid (R), 2+ carotid (L), 2+ radial (R), 2+ radial (L) , 2+ dorsalis pedis (R), 2+ dorsalis pedis (L) Gastrointestinal: normal bowel sounds, non tender, soft, non-distended, no guarding, no rebound Rectal: deferred Genitourinary: normal inspection, no CVA tenderness Musculoskeletal: back normal, gait/station normal, normal range of motion, swelling - 1+ pitting edema Neurologic: alert, oriented x3, responsive, motor strength/tone normal, sensory intact, speech normal Psychiatric: judgement/insight normal, memory normal, mood/affect normal, no suicidal/homicidal ideation Reflexes: 3+ bicep (R), 3+ bicep (L), 3+ tricep (R), 3+ tricep (L), 3+ knee (R) , 3+ knee (L) Lymphatic: no adenopathy Medical Decision Making Diagnostic Impression: Primary Impression: CHF exacerbation Qualified Codes: I50.9 - Heart failure, unspecified Additional Impression: HIV disease ER Course Hospital Course 58 yo M presents witth SOB. h/o CHF Differential diagnoses include: MT/unstable angina, contusion, muscle strain, PTX, rib fracture Clinical course Patient placed on stretcher. on rn cardiac cath. After initial history and physical I ordered labs, EKG, chest x-ray labs reviewed- no leukocytosis, hemoglobin/hematocrit stable, electrolytes ok, trop negative, BNP elevated EKG - NSR, LBBB, no acute ischemic changes interpreted by me Chest x-ray- cardiomegaly Lasix given. Case discussed with Dr. Anthony and he agreed to accept the patient to his service for further care and support I. I feel this is a highly complex case requiring extensive working including EKG/Rhythm strip, Xray/CT/US, Blood/urine lab work, repeat exams while in ED, and administration of strong opiates/narcotics for pain control, admission to hospital or close patient follow up. Diagnosis - CHF exacerbation, HIV admitted to telemetry in serious condition Labs Test 08/31/18 19:29 White Blood Count 4.3 K/UL (4.8-10.8) Red Blood Count 4.75 M/UL (4.70-6.10) Hemoglobin 13.4 G/DL (14.2-18.0) Hematocrit 40.7 % (42.0-52.0) Mean Corpuscular Volume 86 FL (80-99) Mean Corpuscular Hemoglobin 28.1 PG (27.0-31.0) Mean Corpuscular Hemoglobin Concent 32.8 G/DL (32.0-36.0) Red Cell Distribution Width 14.3 % (11.6-14.8) Platelet Count 143 K/UL (150-450) Mean Platelet Volume 8.4 FL (6.5-10.1) Neutrophils (%) (Auto) 53.8 % (45.0-75.0) Lymphocytes (%) (Auto) 27.6 % (20.0-45.0) Monocytes (%) (Auto) 14.2 % (1.0-10.0) Eosinophils (%) (Auto) 3.4 % (0.0-3.0) Basophils (%) (Auto) 1.1 % (0.0-2.0) Sodium Level 136 MMOL/L (136-145) Potassium Level 4.4 MMOL/L (3.5-5.1) Chloride Level 105 MMOL/L (98-107) Carbon Dioxide Level 27 MMOL/L (21-32) Anion Gap 4 mmol/L (5-15) Blood Urea Nitrogen 24 mg/dL (7-18) Creatinine 1.4 MG/DL (0.55-1.30) Estimat Glomerular Filtration Rate 51.7 mL/min (>60) Glucose Level 102 MG/DL (74-106) Calcium Level 8.5 MG/DL (8.5-10.1) Total Bilirubin 0.5 MG/DL (0.2-1.0) Aspartate Amino Transf (AST/SGOT) 80 U/L (15-37) Alanine Aminotransferase (ALT/SGPT) 77 U/L (12-78) Alkaline Phosphatase 96 U/L (46-116) Total Creatine Kinase 107 U/L (26-308) Creatine Kinase MB 1.7 NG/ML (0.0-3.6) Creatine Kinase MB Relative Index 1.5 Troponin I 0.025 ng/mL (0.000-0.056) Pro-B-Type Natriuretic Peptide 7087 pg/mL (0-125) Total Protein 8.6 G/DL (6.4-8.2) Albumin 3.1 G/DL (3.4-5.0) Globulin 5.5 g/dL Albumin/Globulin Ratio 0.6 (1.0-2.7) EKG Diagnostic Results Rate: normal Rhythm: NSR ST Segments: no acute changes ASA given to the pt in ED: No Rhythm Strip Diag. Results EP Interpretation: yes Rhythm: NSR, no PVC's, no ectopy Chest X-Ray Diagnostic Results Chest X-Ray Diagnostic Results : Chest X-Ray Ordered: Yes # of Views/Limited/Complete: 1 View Indication: Shortness of Breath EP Interpretation: Yes Interpretation: no pneumothorax, no acute cardiopulmonary disease, other - cardiomegaly Impression: Other - CHF Electronically Signed by: Electronically signed by Pramod Meredith MD Last Vital Signs Date Time Temp Pulse Resp B/P (MAP) Pulse Ox O2 Delivery O2 Flow Rate FiO2 08/31/18 19:53 98.1 91 18 118/87 100 Room Air Status: improved Disposition: ADMITTED INPATIENT Condition: Serious Referrals: NON PHYSICIAN (PCP) Pramod Meredith MD Aug 31, 2018 21:07
--- NOTE | 2018-08-31 21:15 | NUR ---
ED Nurse Note: Report called into Armen ADAMS.
--- NOTE | 2018-08-31 21:32 | NUR ---
ED Nurse Note: Patient transported to floor by Margarette and RN without incident. Patient A&Ox4 and ambulatory with steady gait.
[2018-08-31 22:00] VITALS: BP 118/73
--- NOTE | 2018-08-31 22:00 | NUR ---
NURSE NOTES: Pt arrived on unit from ER via gurney. Got report from Zayda ADAMS. Pt in stable condition. Denies any pain. No s/s of distress or discomfort noted. Denies any n/v or SOB. Pt is fully oriented and able to answer all of my questions. VSS BP:118/73 T:97.9 R:18 HR:93 O2:96% on room air. No skin issues noted. Pt able to ambulate steady. Pt resting in bed comfortably. Bed in low and locked positon, call light within reach, bedside table within reach. Continue to monitor. All orders put in by Dr. Todd.
[2018-08-31] MEDS ORDERED: Miralax 17gm pkt ORAL PRN (22:45)
[2018-08-31] MEDS ORDERED: Albuterol/Ipratropium 3ml neb HHN PRN (22:45)
[2018-08-31 23:24] LABS: APPEARANCE,URINE CLEAR; BILIRUBIN, URINE NEGATIVE (NEGATIVE); COLOR,URINE PALE YELLOW; GLUCOSE, URINE (UA) NEGATIVE (NEGATIVE); KETONES,URINE NEGATIVE (NEGATIVE); LEUKOCYTE ESTERASE ,URINE NEGATIVE (NEGATIVE); NITRITE,URINE NEGATIVE (NEGATIVE); PH,URINE 5 (4.5-8.0); PROTEIN,URINE NEGATIVE (NEGATIVE); UROBILINOGEN,URINE NORMAL MG/DL (0.0-1.0)
[2018-09-01] VITALS: BP 126/84
[2018-09-01 04:00] VITALS: BP 119/90
[2018-09-01 06:14] LABS: BASOPHILS % (AUTO) 1.2 % (0.0-2.0); EOSINOPHILS % (AUTO) 4.4 % (0.0-3.0); HEMATOCRIT 41.6 % (42.0-52.0); HEMOGLOBIN 13.4 G/DL (14.2-18.0); LYMPHOCYTES % (AUTO) 29.6 % (20.0-45.0); MEAN CORPUSCULAR VOLUME 87 FL (80-99); MONOCYTES % (AUTO) 15.8 % (1.0-10.0); PLATELET COUNT 141 K/UL (150-450); RED CELL DISTRIBUTION WIDTH 14.9 % (11.6-14.8); WHITE BLOOD COUNT 3.8 K/UL (4.8-10.8)
[2018-09-01 06:53] LABS: ALBUMIN 2.8 G/DL (3.4-5.0); ANION GAP 7 mmol/L (5-15); BLOOD UREA NITROGEN 27 mg/dL (7-18); CALCIUM 8.2 MG/DL (8.5-10.1); CARBON DIOXIDE 25 MMOL/L (21-32); CHLORIDE 105 MMOL/L (98-107); CREATININE 1.4 MG/DL (0.55-1.30); POTASSIUM 3.9 MMOL/L (3.5-5.1); SODIUM 137 MMOL/L (136-145)
--- NOTE | 2018-09-01 06:54 | Consultation ---
History of Present Illness General Date patient seen: Sep 01, 2018 Chief Complaint: Dyspnea/Respdistress Present Illness HPI 58-year-old male with hx of End stage heart disease with EF of 15%, HIV presented to ED for evaluation of shortness of breath for the last 3 days. Worse with lying flat and with walking. Jamie grayson ran out of his medications 3 days ago. Notes some leg swelling as well. Denies chest pain. Denies fevers or chills. No other aggravating relieving factors. Denies any other associated symptoms Allergies: Coded Allergies: SULFA (SULFONAMIDE ANTIBIOTICS) (Verified Allergy, Unknown, 05/21/18) Medication History Scheduled Albuterol Sulfate* (Albuterol Sulfate Mdi*), 2 PUFF INH Q3H Ascorbic Acid* (Vitamin C*), 500 MG ORAL DAILY, (Reported) Carvedilol (Coreg), 3.125 MG ORAL EVERY 12 HOURS Cholecalciferol (Vitamin D3)* (Vitamin D*), 1,000 UNIT ORAL DAILY, (Reported) Darunavir/Cobicistat (Prezcobix 800 mg-150 mg Tablet), 1 EACH PO DAILY, ( Reported) Duloxetine Hcl* (Cymbalta*), 30 MG ORAL DAILY, (Reported) Furosemide (Furosemide), 20 MG ORAL DAILY Furosemide* (Lasix*), 40 MG ORAL TWICE A DAY, (Reported) Glucosamine Sulfate 2KCL (Glucosamine), 1,000 MG PO DAILY, (Reported) Lisinopril* (Lisinopril*), 10 MG ORAL DAILY Multivitamins* (Multivitamins*), 1 TAB ORAL DAILY, (Reported) Spironolactone (Aldactone), 25 MG ORAL DAILY [Triumeq], 1 TAB PO DAILY, (Reported) Scheduled PRN Codeine/Promethazine Hcl* (Promethazine-Codeine Syrup*), 5 ML ORAL Q6HR PRN for For Cough Ondansetron (Zofran), 4 MG ORAL Q6H PRN for Nausea & Vomiting Miscellaneous Medications Unable to Obtain Medications (Unable To Obtain Meds), (Reported) Patient History Healthcare decision maker Resuscitation status Advanced Directive on File Past Medical/Surgical History Past Medical/Surgical History: (1) Psychiatric complaint (2) AIDS (3) EF 15% (4) Severe protein-calorie malnutrition (5) Cocaine abuse (6) CHF exacerbation Review of Systems Respiratory: Reports: orthopnea, shortness of breath All Other Systems: negative except mentioned in HPI Physical Exam General Appearance: WD/WN Lines, tubes and drains: peripheral HEENT: normocephalic, atraumatic Neck: non-tender, normal alignment Respiratory/Chest: chest wall non-tender, lungs clear, normal breath sounds Breasts: no masses Cardiovascular/Chest: normal peripheral pulses Abdomen: normal bowel sounds Genitourinary/Rectal: normal genital exam Last 24 Hour Vital Signs Date Time Temp Pulse Resp B/P (MAP) Pulse Ox O2 Delivery O2 Flow Rate FiO2 09/01/18 04:00 97.6 86 20 119/90 (100) 98 09/01/18 04:00 87 09/01/18 02:25 Room Air 09/01/18 00:00 97.7 92 20 126/84 (98) 98 09/01/18 00:00 96 08/31/18 23:00 Room Air 08/31/18 22:00 97.9 93 18 118/73 (88) 96 08/31/18 22:00 99 08/31/18 21:32 98.1 91 18 118/87 100 Room Air 08/31/18 19:53 98.1 91 18 118/87 100 Room Air 08/31/18 19:10 91 18 08/31/18 19:05 98.1 91 18 118/87 (97) 100 Intake and Output 08/31/18 09/01/18 18:59 06:59 Intake Total 0 ml Output Total 800 ml Balance -800 ml Intake Oral 0 ml Output Urine Total 800 ml # Bowel Movements 2 Laboratory Tests Test 08/31/18 19:29 08/31/18 23:00 09/01/18 05:24 White Blood Count 4.3 K/UL (4.8-10.8) L 3.8 K/UL (4.8-10.8) L Red Blood Count 4.75 M/UL (4.70-6.10) 4.80 M/UL (4.70-6.10) Hemoglobin 13.4 G/DL (14.2-18.0) L 13.4 G/DL (14.2-18.0) L Hematocrit 40.7 % (42.0-52.0) L 41.6 % (42.0-52.0) L Mean Corpuscular Volume 86 FL (80-99) 87 FL (80-99) Mean Corpuscular Hemoglobin 28.1 PG (27.0-31.0) 27.9 PG (27.0-31.0) Mean Corpuscular Hemoglobin Concent 32.8 G/DL (32.0-36.0) 32.2 G/DL (32.0-36.0) Red Cell Distribution Width 14.3 % (11.6-14.8) 14.9 % (11.6-14.8) H Platelet Count 143 K/UL (150-450) L 141 K/UL (150-450) L Mean Platelet Volume 8.4 FL (6.5-10.1) 8.8 FL (6.5-10.1) Neutrophils (%) (Auto) 53.8 % (45.0-75.0) 49.0 % (45.0-75.0) Lymphocytes (%) (Auto) 27.6 % (20.0-45.0) 29.6 % (20.0-45.0) Monocytes (%) (Auto) 14.2 % (1.0-10.0) H 15.8 % (1.0-10.0) H Eosinophils (%) (Auto) 3.4 % (0.0-3.0) H 4.4 % (0.0-3.0) H Basophils (%) (Auto) 1.1 % (0.0-2.0) 1.2 % (0.0-2.0) Sodium Level 136 MMOL/L (136-145) Pending Potassium Level 4.4 MMOL/L (3.5-5.1) Pending Chloride Level 105 MMOL/L (98-107) Pending Carbon Dioxide Level 27 MMOL/L (21-32) Pending Anion Gap 4 mmol/L (5-15) L Blood Urea Nitrogen 24 mg/dL (7-18) H Pending Creatinine 1.4 MG/DL (0.55-1.30) H Pending Estimat Glomerular Filtration Rate 51.7 mL/min (>60) Pending Glucose Level 102 MG/DL (74-106) Pending Calcium Level 8.5 MG/DL (8.5-10.1) Pending Total Bilirubin 0.5 MG/DL (0.2-1.0) Aspartate Amino Transf (AST/SGOT) 80 U/L (15-37) H Alanine Aminotransferase (ALT/SGPT) 77 U/L (12-78) Alkaline Phosphatase 96 U/L (46-116) Total Creatine Kinase 107 U/L (26-308) Pending Creatine Kinase MB 1.7 NG/ML (0.0-3.6) Creatine Kinase MB Relative Index 1.5 Troponin I 0.025 ng/mL (0.000-0.056) Pending Pro-B-Type Natriuretic Peptide 7087 pg/mL (0-125) H Total Protein 8.6 G/DL (6.4-8.2) H Albumin 3.1 G/DL (3.4-5.0) L Pending Globulin 5.5 g/dL Albumin/Globulin Ratio 0.6 (1.0-2.7) L Urine Color Pale yellow Urine Appearance Clear Urine pH 5 (4.5-8.0) Urine Specific [place] 1.010 (1.005-1.035) Urine Protein Negative (NEGATIVE) Urine Glucose (UA) Negative (NEGATIVE) Urine Ketones Negative (NEGATIVE) Urine Blood Negative (NEGATIVE) Urine Nitrite Negative (NEGATIVE) Urine Bilirubin Negative (NEGATIVE) Urine Urobilinogen Normal MG/DL (0.0-1.0) Urine Leukocyte Esterase Negative (NEGATIVE) Urine RBC 0 /HPF (0 - 0) Urine WBC 0-2 /HPF (0 - 0) Urine Squamous Epithelial Cells Occasional /LPF Urine Bacteria Occasional /HPF (NONE) Urine Eosinophils None seen (NONE SEEN) Urine Osmolality 285 mOsm/kg (429-449) L Urine Random Creatinine Pending Urine Random Microalbumin Pending Urine Random Sodium 114 mmol/L (20-110) H Urine Microalbumin/Creatinine Ratio Pending Uric Acid Pending Phosphorus Level Pending Microbiology Date/Time Source Procedure Growth Status 08/31/18 21:00 Rectum Received Height (Feet): 5 Height (Inches): 7.00 Weight (Pounds): 150 Medications Current Medications Medications (Trade) Dose Ordered Sig/Sidney Route PRN Reason Start Time Stop Time Status Last Admin Dose Admin Acetaminophen (Tylenol) 650 mg Q4H PRN ORAL Fever 08/31/18 22:45 09/30/18 22:44 Albuterol/ Ipratropium (Albuterol/ Ipratropium) 3 ml Q4H PRN HHN Shortness of Breath 08/31/18 22:45 09/05/18 22:44 Carvedilol (Coreg) 3.125 mg EVERY 12 HOURS ORAL 09/01/18 09:00 10/01/18 08:59 Dextrose (Dextrose 50%) 25 ml Q30M PRN IV Hypoglycemia 08/31/18 22:45 09/30/18 22:44 Dextrose (Dextrose 50%) 50 ml Q30MIN PRN IV Hypoglycemia 08/31/18 22:45 09/30/18 22:44 Duloxetine HCl (Cymbalta) 30 mg DAILY ORAL 09/01/18 09:00 10/01/18 08:59 Furosemide (Lasix) 40 mg EVERY 8 HOURS IV 09/01/18 06:00 10/01/18 05:59 09/01/18 06:02 Heparin Sodium (Porcine) (Heparin 5000 units/ml) 5,000 units EVERY 12 HOURS SUBQ 09/01/18 09:00 10/01/18 08:59 Ondansetron HCl (Zofran) 4 mg Q6H PRN IVP Nausea & Vomiting 08/31/18 22:45 09/30/18 22:44 Polyethylene Glycol (Miralax) 17 gm DAILYPRN PRN ORAL Constipation 08/31/18 22:45 09/30/18 22:44 Spironolactone (Aldactone) 25 mg DAILY ORAL 09/01/18 09:00 10/01/18 08:59 Temazepam (Restoril) 15 mg HSPRN PRN ORAL Insomnia 08/31/18 22:45 09/07/18 22:44 09/01/18 02:32 Assessment/Plan Problem List: (1) Acute systolic congestive heart failure, NYHA class 4 ICD Codes: I50.21 - Acute systolic (congestive) heart failure SNOMED: 158623941, 521628154, 746886418 (2) EF 15% (3) Severe protein-calorie malnutrition ICD Codes: E43 - Unspecified severe protein-calorie malnutrition SNOMED: 216782801 (4) Hepatitis C ICD Codes: B19.20 - Unspecified viral hepatitis C without hepatic coma SNOMED: 46551843 (5) AIDS ICD Codes: B20 - Human immunodeficiency virus [HIV] disease SNOMED: 21631188 (6) Cocaine abuse ICD Codes: F14.10 - Cocaine abuse, uncomplicated SNOMED: 03206960 Assessment/Plan: symptomatic treatment high dose lasix check electrolytes cxr and bnp in am might need placement Abdi Todd MD Sep 01, 2018 06:54
--- NOTE | 2018-09-01 07:00 | NUR ---
HAND-OFF: Report given to Nader ADAMS. Endorsed plan of care.
--- NOTE | 2018-09-01 07:05 | NUR ---
NURSE NOTES: Report received from BRYAN Wallace. Patient awake and having breakfast. AOx4. IV on LAC, flushed, SL. Bed on lowest position, side rails upx2, brakes engaged. Call light within easy reach.
[2018-09-01 07:32] LABS: CREATINE KINASE 78 U/L (26-308)
[2018-09-01 08:00] VITALS: BP 108/76
[2018-09-01] MEDS ORDERED: Heparin 5000 units/ml inj SUBQ SCH (09:00)
[2018-09-01] MEDS ORDERED: DULoxetine 30mg cap ORAL SCH (09:00)
[2018-09-01] MEDS ORDERED: Spironolactone 25mg tab ORAL SCH (09:00)
[2018-09-01 12:00] VITALS: BP 118/75
--- NOTE | 2018-09-01 12:39 | NUR ---
CASE MANAGEMENT: INITIAL REVIEW 08/31/2018 58 YO M PRESENTED TO OUR ED FROM HOME CC: DYSPNEA PMHx: CHF. HIV. ASTHMA. HEP C. SI:CHF EXACERBATION T 98.1 HR 91 RR 18 B/P 118/87 SATS 100% ON RA WBC 4.3 BUN 24 CR 1.4 AST 80 BNP 7087 IS: LASIX IV X1 PATIENT ADMITTED TO TELE ON 08/31/2018 @ 2110 DCP: PATIENT TO BE DISCHARGED TO HOME ONCE MEDICALLY CLEARED. PLAN OF CARE: CARDIO EVAL 09/01/2018 SI:CHF EXACERBATION T 97.3 HR 84 RR 20 B/P 108/76 SATS 99% ON RA BUN 27 CR 1.4 CA 8.2 IS: LASIX IV Q8H COREG PO Q12H CYMBALTA PO QD ALDACTONE PO QD TELE STATUS DCP: PATIENT TO BE DISCHARGED TO HOME ONCE MEDICALLY CLEARED. PLAN OF CARE: CXR US RENAL SERIAL TROPONIN VENOUS DUPLEX Addendum: 09/01/18 at 1259 by Fang Avila CM INTERQUAL MET
[2018-09-01 16:00] VITALS: BP 123/85
--- NOTE | 2018-09-01 16:54 | History & Physical ---
History and Physical History & Physicial Dictated no. [id number]. Douglas Anthony MD Sep 01, 2018 16:54
--- NOTE | 2018-09-01 17:16 | Cardiac Electrophysiology PN ---
Subjective Subjective [id number] Objective Last 24 Hour Vital Signs Date Time Temp Pulse Resp B/P (MAP) Pulse Ox O2 Delivery O2 Flow Rate FiO2 09/01/18 12:00 85 09/01/18 12:00 97.5 75 20 118/75 (89) 98 09/01/18 09:00 Room Air 09/01/18 08:24 84 108/76 09/01/18 08:00 97.3 84 20 108/76 (87) 99 09/01/18 08:00 85 09/01/18 04:00 97.6 86 20 119/90 (100) 98 09/01/18 04:00 87 09/01/18 02:25 Room Air 09/01/18 00:00 97.7 92 20 126/84 (98) 98 09/01/18 00:00 96 08/31/18 23:00 Room Air 08/31/18 22:00 97.9 93 18 118/73 (88) 96 08/31/18 22:00 99 08/31/18 21:32 98.1 91 18 118/87 100 Room Air 08/31/18 19:53 98.1 91 18 118/87 100 Room Air 08/31/18 19:10 91 18 08/31/18 19:05 98.1 91 18 118/87 (97) 100 Intake and Output 08/31/18 09/01/18 19:00 07:00 Intake Total 0 ml Output Total 800 ml Balance -800 ml Intake Oral 0 ml Output Urine Total 800 ml # Bowel Movements 2 Laboratory Tests Test 08/31/18 19:29 08/31/18 23:00 09/01/18 05:24 White Blood Count 4.3 K/UL (4.8-10.8) L 3.8 K/UL (4.8-10.8) L Red Blood Count 4.75 M/UL (4.70-6.10) 4.80 M/UL (4.70-6.10) Hemoglobin 13.4 G/DL (14.2-18.0) L 13.4 G/DL (14.2-18.0) L Hematocrit 40.7 % (42.0-52.0) L 41.6 % (42.0-52.0) L Mean Corpuscular Volume 86 FL (80-99) 87 FL (80-99) Mean Corpuscular Hemoglobin 28.1 PG (27.0-31.0) 27.9 PG (27.0-31.0) Mean Corpuscular Hemoglobin Concent 32.8 G/DL (32.0-36.0) 32.2 G/DL (32.0-36.0) Red Cell Distribution Width 14.3 % (11.6-14.8) 14.9 % (11.6-14.8) H Platelet Count 143 K/UL (150-450) L 141 K/UL (150-450) L Mean Platelet Volume 8.4 FL (6.5-10.1) 8.8 FL (6.5-10.1) Neutrophils (%) (Auto) 53.8 % (45.0-75.0) 49.0 % (45.0-75.0) Lymphocytes (%) (Auto) 27.6 % (20.0-45.0) 29.6 % (20.0-45.0) Monocytes (%) (Auto) 14.2 % (1.0-10.0) H 15.8 % (1.0-10.0) H Eosinophils (%) (Auto) 3.4 % (0.0-3.0) H 4.4 % (0.0-3.0) H Basophils (%) (Auto) 1.1 % (0.0-2.0) 1.2 % (0.0-2.0) Sodium Level 136 MMOL/L (136-145) 137 MMOL/L (136-145) Potassium Level 4.4 MMOL/L (3.5-5.1) 3.9 MMOL/L (3.5-5.1) Chloride Level 105 MMOL/L (98-107) 105 MMOL/L (98-107) Carbon Dioxide Level 27 MMOL/L (21-32) 25 MMOL/L (21-32) Anion Gap 4 mmol/L (5-15) L 7 mmol/L (5-15) Blood Urea Nitrogen 24 mg/dL (7-18) H 27 mg/dL (7-18) H Creatinine 1.4 MG/DL (0.55-1.30) H 1.4 MG/DL (0.55-1.30) H Estimat Glomerular Filtration Rate 51.7 mL/min (>60) 51.7 mL/min (>60) Glucose Level 102 MG/DL (74-106) 97 MG/DL (74-106) Calcium Level 8.5 MG/DL (8.5-10.1) 8.2 MG/DL (8.5-10.1) L Total Bilirubin 0.5 MG/DL (0.2-1.0) Aspartate Amino Transf (AST/SGOT) 80 U/L (15-37) H Alanine Aminotransferase (ALT/SGPT) 77 U/L (12-78) Alkaline Phosphatase 96 U/L (46-116) Total Creatine Kinase 107 U/L (26-308) 78 U/L (26-308) Creatine Kinase MB 1.7 NG/ML (0.0-3.6) Creatine Kinase MB Relative Index 1.5 Troponin I 0.025 ng/mL (0.000-0.056) 0.026 ng/mL (0.000-0.056) Pro-B-Type Natriuretic Peptide 7087 pg/mL (0-125) H Total Protein 8.6 G/DL (6.4-8.2) H Albumin 3.1 G/DL (3.4-5.0) L 2.8 G/DL (3.4-5.0) L Globulin 5.5 g/dL Albumin/Globulin Ratio 0.6 (1.0-2.7) L Urine Color Pale yellow Urine Appearance Clear Urine pH 5 (4.5-8.0) Urine Specific [place] 1.010 (1.005-1.035) Urine Protein Negative (NEGATIVE) Urine Glucose (UA) Negative (NEGATIVE) Urine Ketones Negative (NEGATIVE) Urine Blood Negative (NEGATIVE) Urine Nitrite Negative (NEGATIVE) Urine Bilirubin Negative (NEGATIVE) Urine Urobilinogen Normal MG/DL (0.0-1.0) Urine Leukocyte Esterase Negative (NEGATIVE) Urine RBC 0 /HPF (0 - 0) Urine WBC 0-2 /HPF (0 - 0) Urine Squamous Epithelial Cells Occasional /LPF Urine Bacteria Occasional /HPF (NONE) Urine Eosinophils None seen (NONE SEEN) Urine Osmolality 285 mOsm/kg (429-449) L Urine Random Creatinine Pending Urine Random Microalbumin Pending Urine Random Sodium 114 mmol/L (20-110) H Urine Microalbumin/Creatinine Ratio Pending Uric Acid 6.4 MG/DL (2.6-7.2) Phosphorus Level 4.0 MG/DL (2.5-4.9) Microbiology Date/Time Source Procedure Growth Status 08/31/18 21:00 Rectum Received Bony Cifuentes MD Sep 01, 2018 17:16
--- NOTE | 2018-09-01 17:20 | NUR ---
NURSE NOTES: Pt. insisted on leaving against medical advise. Informed the disadvantage of leaving against medical advise. Pt. replied "I know what that means, it means that I leave here on my own regardless of what you are advising me...." Dinner tray came in and Pt agreed to eat and to further talk about situation.
--- NOTE | 2018-09-01 17:55 | NUR ---
Pt. insisted on leaving against medical advice, signed AMA form, Heplock removed. all belongings returned to patient, Pt. claims he is missing his Pants & Belt.
--- NOTE | 2018-09-01 17:55 | NUR ---
Dr. Anthony Aware of Patients decision to sign out AMA. Pt. was also seen by Dr. Cifuentes in consult, but pt. still insisted on leaving. escorted down to Lobby.
--- NOTE | 2018-09-01 17:56 | NUR ---
NURSE NOTES: Was informed by MIKE Titus that Pt. signed AMA and left.
--- NOTE | 2018-09-01 18:45 | History and Physical Report ---
DATE OF ADMISSION: 08/31/2018 CHIEF COMPLAINT: The patient is a 58-year-old male, who presents with a chief complaint of shortness of breath. HISTORY OF PRESENT ILLNESS: It began approximately 3 days prior to admission. The patient began to experience shortness of breath. The patient also experienced a nonproductive cough. The patient states he has been short of breath for the past 3 days. Shortness of breath is present both walking and while lying flat. The patient presented to [facility] emergency room. The patient was found to have a BNP greater than 7087. The patient is admitted with acute on chronic congestive heart failure. REVIEW OF SYSTEMS: CONSTITUTIONAL: The patient denies weight loss or weight gain. The patient denies fevers or chills. HEENT: The patient denies ear or throat pain. The patient denies headache. CARDIOVASCULAR: The patient denies palpitations or chest pain. CHEST: The patient complains of shortness of breath as above. The patient denies palpitations. ABDOMEN: The patient denies nausea, vomiting, diarrhea, or constipation. GENITOURINARY: The patient denies dysuria or increased frequency of urination. NEUROMUSCULAR: The patient denies seizures or generalized weakness. PAST MEDICAL HISTORY: Significant for: 1. Congestive heart failure. 2. HIV, which was diagnosed in 1983. The patient states his latest T-cell count was 250. 3. Hepatitis C. PAST SURGICAL HISTORY: Significant for hemorrhoidectomy. CURRENT MEDICATIONS: 1. Albuterol metered-dose inhaler two puffs p.o. q.i.d. p.r.n. 2. Vitamin C 500 mg p.o. daily. 3. Coreg 3.125 mg p.o. twice daily. 4. Vitamin D 1000 units p.o. daily. 5. Prezcobix 800/150 mg 1 tablet p.o. daily. 6. Cymbalta 30 mg p.o. daily. 7. Lasix 40 mg p.o. twice daily. 8. Lisinopril 10 mg p.o. daily. 9. Spironolactone 25 mg p.o. daily. 10. Triumeq one tablet p.o. daily. ALLERGIES: Sulfa. SOCIAL HISTORY: The patient is single and lives alone. The patient denies tobacco use having quit six years previously. The patient denies alcohol use. The patient does admit to occasional methamphetamine use. PHYSICAL EXAMINATION: VITAL SIGNS: Temperature 98.1, pulse 91, blood pressure 118/87, and respiratory rate 18. GENERAL: The patient is a well-developed and well-nourished thin-appearing male, in no apparent distress. HEENT: Eyes, pupils are equal and responsive to light and accommodation. Extraocular movements are intact. NECK: Supple without lymphadenopathy. CHEST: Crackles in bilateral bases. Otherwise, without wheezes or rales. CARDIOVASCULAR: Regular rhythm and rate. S1 and S2 are normal without murmurs, rubs, or gallops. ABDOMEN: Soft, nontender, and nondistended. Positive bowel sounds. No evidence of hepatosplenomegaly. Currently, no rebound or guarding noted. EXTREMITIES: Negative for clubbing, cyanosis, or edema. RECTAL/GENITAL: Not performed. NEUROLOGIC: Cranial nerves II through XII are grossly intact without focal deficits. Motor strength is 5/5 bilaterally. Deep tendon reflexes are 2+ plantar. LABORATORY STUDIES: WBC 4.2, hemoglobin 13.4, hematocrit 40.7, and platelets 143,000. Sodium 136, potassium 4.4, chloride 105, CO2 27, BUN 24, creatinine 1.4, and glucose 102. Troponin 0.025. BNP elevated at 7087. Chest x-ray was reported as prominence of the cardiac silhouette, otherwise no acute disease. ASSESSMENT: This is a 58-year-old male. 1. Congestive heart failure. 2. Shortness of breath. 3. HIV. 4. Hepatitis C. TREATMENT: 1. Congestive heart failure/shortness of breath. Cardiology consultation has been obtained with Dr. Bony Cifuentes. An echocardiogram is pending. The patient will be given intravenous Lasix. An echocardiogram is pending. We will follow recommendations of Cardiology. 2. HIV. Continue Triumeq and Prezcobix as above. 3. Hepatitis C. Douglas Anthony M.D. DR: SUMANTH JOB#: [id number] CC:
--- NOTE | 2018-09-02 02:15 | Consultation ---
DATE OF CONSULTATION: 09/01/2018 CARDIOLOGY CONSULTATION CONSULTING PHYSICIAN: Bony Cifuentes M.D. REFERRING PHYSICIAN: Douglas Anthony M.D. REASON FOR CONSULTATION: Exacerbation of congestive heart failure. HISTORY OF PRESENT ILLNESS: The patient is a 58-year-old gentleman from his previous admission of November 2017. At that time, echocardiogram showed ejection fraction of only 15 to 20%. The patient was treated with Lasix, lisinopril, and Aldactone, but kept him off Coreg as he had cocaine use at that time. The patient also has HIV and hepatitis C. The patient presented to the emergency room as he ran out of medication and was admitted. He has a history of congestive heart failure. His echocardiogram was repeated and showed ejection fraction of 20%. REVIEW OF SYSTEMS: Review of systems was negative other than what is mentioned in the history of present illness. PAST MEDICAL HISTORY: As mentioned above. FAMILY HISTORY: Noncontributory. SOCIAL HISTORY: He lives at home. Does not smoke or drink alcohol, but has a history of cocaine use in the past. PHYSICAL EXAMINATION: VITAL SIGNS: Show blood pressure of 118/75, pulse is 85, respirations 18, and temperature 97.5. HEAD AND NECK: Shows no JVD. LUNGS: Decreased breath sounds. CARDIOVASCULAR: Shows regular S1 and S2 with no gallop. ABDOMEN: Soft. EXTREMITIES: A 2+ pitting edema. LABORATORY AND DIAGNOSTIC DATA: His EKG shows sinus rhythm with complete left bundle-branch block. QRS duration 154 milliseconds. His labs show white count of 3.8, hemoglobin 13.4, hematocrit of 42, and platelet count of 141,000. Sodium 137, potassium 3.9, BUN of 27, creatinine 1.4, and glucose of 97. Troponin is negative x2. BNP 7087. His urine toxicology screen has been negative. ASSESSMENT AND PLAN: 1. 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 The patient states he never had cardiac catheterization done. This is the best option to make sure he does not have any underlying coronary artery disease. In the meantime, resume his heart failure medication including Coreg 3.125 mg b.i.d., Aldactone 25 mg daily, Lasix IV every hours, Aldactone 25 mg daily, and lisinopril 10 mg daily as well. 2. Complete left bundle-branch block. The patient likely would benefit from cardiac resynchronization therapy with old biventricular pacing and defibrillator implantation, now that he is off drugs and his urine toxicology screen is negative. 3. History of HIV. 4. History of hep C. The patient is on anti-retroviral therapy. Thank you very much, Dr. Anthony, for allowing me to participate in the care of this patient. Please do not hesitate to contact me for any questions regarding my evaluation. Bony Cifuentes M.D. DR: CEDRICK JOB#: [id number] CC:
--- NOTE | 2018-09-03 13:25 | Discharge Summary ---
Discharge Summary Discharge Summary _ DATE OF ADMISSION: 08/31/2018 DATE OF DISCHARGE: 09/01/2018 Patient left AGAINST MEDICAL ADVICE REASON FOR ADMISSION: 58 years old male with past medical history of end-stage heart disease, HIV status, hepatitis C, presented to emergency department for evaluation due to shortness of breath for the last 3 days. Patient reported shortness of breath was worse with lying flat and with walking. He ran out of his medication and since that time started to experience worsening shortness of breath . Patient also noted leg swelling. No chest pain. No fever or chills. Upon evaluation vital signs were stable. Laboratory work-up revealed no leukocytosis , stable hemoglobin and hematocrit. Stable electrolytes. BUN 24, creatinine 1.4. ALT 80, AST 77. . Troponin - 0.025. Pro BNP 7087. EKG revealed sinus rhythm with left bundle branch block. Urinalysis revealed no evidence of urinary tract infection. Patient was admitted for further management. CONSULTANTS: high school home economics teacher Dr. Mercado pulmonary Dr. Todd [facility] COURSE: Patient admitted to telemetry floor. Patient started on high dose of diuresis with close monitoring of volumes and cardiorenal parameters. Beta-kathy , YAKOV inhibitors and Aldactone continued. DVT prophylaxis provided. Echocardiogram done revealed ejection fraction of about 20% with global left ventricular hypokinesis, and inferio-septal wall akinesis. No evidence of left ventricular hypertrophy. No evidence of pericardial effusion. Grade 2 diastolic dysfunction. Right ventricular systolic pressure of 56 consistent with moderate pulmonary hypertension. According to patient , he never had cardiac catheterization. Per high school home economics teacher, patient will benefit from cardiac catheterization. Patient also had evidence of left bundle branch block. Patient likely will benefit from cardiac resynchronization therapy with old biventricular pacing and defibrillator implantation. Patient currently off drugs. Urine toxicology screen was negative. Supplemental oxygen titrated to keep pulse oximetry above 92%. Pulmonary toilet via handheld nebulizing therapy with bronchodilator provided as needed. Antiretroviral therapy was continued. CD4 count was 169 in November 2017 in this facility. According to patient his latest CD4 count 250. Bowel regimen instituted. Supportive care provided. Patient decided to leave AGAINST MEDICAL ADVICE. The risks and consequences of signing AGAINST MEDICAL ADVICE were discussed with patient in detail. Patient verbalized understanding, nevertheless signed AMA form and left. FINAL DIAGNOSES: Acute systolic congestive heart failure NYHA class IV Severe cardiomyopathy with ejection fraction of 20% Complete left bundle branch block Hepatitis C HIV disease History of cocaine abuse I have been assigned to dictate discharge summary for this account. I was not involved in the patient's management. Lisa Melo NP Sep 03, 2018 13:24
--- NOTE | 2018-09-04 17:41 | Cardiology Report ---
APPROVED REPORT EXAM: Two-dimensional and M-mode echocardiogram with Doppler and color Doppler. INDICATION LV FUNCTION M-Mode DIMENSIONS IVSd1.4 (0.7-1.1cm)Left Atrium (MM)3.5 (1.6-4.0cm) LVDd6.0 (3.5-5.6cm)Aortic Root3.5 (2.0-3.7cm) PWd0.8 (0.7-1.1cm)Aortic Cusp Exc.1.9 (1.5-2.0cm) IVSs1.1 cm LVDs5.5 (2.5-4.0cm) PWs1.2 cm Moderate left ventricular enlargement . Global left ventricular hypokinesis .anteroseptal wall akinesis . Left ventricular ejection fraction estimated to be 20 %. No evidence of left ventricular hypertrophy . No evidence of pericardial effusion. Mild bi-atrial enlargement . Mild right ventricular enlargement . Focal aortic valve sclerosis with normal cusp excursion. Thickened mitral valve leaflets with normal excursion. Mitral annulus and aortic root calcification. Normal pulmonic valve structure. Normal tricuspid valve structure. IVC at normal size with physiologic collapse. A color flow and spectral Doppler study was performed and revealed: No aortic regurgitation. Mild mitral regurgitation. Mitral inflow velocities indicates possible pseudo normalization pattern implying moderately elevated left atrial pressure (Grade II ) Moderate tricuspid regurgitation. Tricuspid systolic velocities suggests peak right ventricular systolic pressure of 56 mmHg,consistent with moderate pulmonary hypertension. Trace pulmonic regurgitation .
--- NOTE | 2018-09-04 18:09 | Cardiology Report ---
APPROVED REPORT EKG Measurement Heart [id number] DC [id number] Normal sinus rhythm Left atrial enlargement Left bundle branch block Abnormal ECG
== END 2018-09-01 17:55 | disposition left against medical advice (07) | DRG 194 ==
LOC: EMR 19:49 → EDBEDREQ 21:03 → 2E 21:10
DX: I50.23 Acute on chronic systolic (congestive) heart failure (principal); E43 Unspecified severe protein-calorie malnutrition; I44.2 Atrioventricular block, complete; B20 Human immunodeficiency virus [HIV] disease; Z68.23 Body mass index [BMI] 23.0-23.9, adult; I42.8 Other cardiomyopathies; B19.20 Unspecified viral hepatitis C without hepatic coma; F14.10 Cocaine abuse, uncomplicated; Z53.21 Procedure and treatment not carried out due to patient leaving prior to being seen by health care provider; Z88.2 Allergy status to sulfonamides; Z87.891 Personal history of nicotine dependence; I44.7 Left bundle-branch block, unspecified
CPT/HCPCS: 36415; 71045; 80048; 80053; 80069; 81001; 82043; 82550; 82553; 83880; 83935; 84300; 84484; 84550; 85025; 87081; 89050; 93005; 93306; 96374; 99285

== ENCOUNTER 2018-09-08 11:53 | Emergency (ER) | payer OTHER ==
[~2018-09-08] VITALS: Ht 177.8 cm; Wt 72.6 kg
--- NOTE | 2018-09-08 12:05 | NUR ---
ED Nurse Note: pt walked in due to shortness of breath started this morning. pt stated he was recently dc from a hospital admission from the same reason, pt stated he lost his lasix 1 week ago that is why he started to have swelling and shortness of breath again. pt denies any pain. with vss. pt is seen by lilia. will continue to monitor.
--- NOTE | 2018-09-08 12:13 | Emergency Room Report ---
History of Present Illness General Chief Complaint: Dyspnea/Respdistress Source: Patient Present Illness HPI Patient is a 58-year-old male who presents after increased shortness of breath. He reports having misplaced his Lasix prescription and states he has not been able to take this since being discharged from the hospital. Patient had a prior history of CHF. Per prior records patient had low ejection fraction. He had also prior history of cocaine abuse. Patient states that he had been having increased difficulty with respirations. He denies any chest discomfort. He had been having some worsening of symptoms with supine position. He denies significant leg swelling. Allergies: Coded Allergies: SULFA (SULFONAMIDE ANTIBIOTICS) (Verified Allergy, Unknown, 05/21/18) Patient History Past Medical History: see triage record Reviewed Nursing Documentation: PMH: Agreed; PSxH: Agreed Nursing Documentation-PMH Past Medical History: No History, Except For Hx Cardiac Problems: Yes - chronic heart failure, hepatitis c, human immunodeficiency virus Hx Hypertension: Yes Hx Asthma: Yes Hx Cancer: No Hx Gastrointestinal Problems: Yes Hx Neurological Problems: No Review of Systems All Other Systems: negative except mentioned in HPI Physical Exam Vital Signs Date Time Temp Pulse Resp B/P (MAP) Pulse Ox O2 Delivery O2 Flow Rate FiO2 09/08/18 11:56 98.1 79 20 117/81 (93) 99 Room Air Sp02 EP Interpretation: reviewed, normal General Appearance: normal inspection, well appearing, no apparent distress, alert, GCS 15, Chronically Ill Head: atraumatic ENT: normal ENT inspection, hearing grossly normal, normal voice Neck: normal inspection, full range of motion, supple, no bony tend Respiratory: normal inspection, lungs clear, normal breath sounds, no respiratory distress, no retraction, no wheezing Cardiovascular #1: regular rate, rhythm, no edema Gastrointestinal: normal inspection, normal bowel sounds, non tender, soft, no guarding, no hernia Genitourinary: no CVA tenderness Musculoskeletal: normal inspection, back normal, normal range of motion Neurologic: normal inspection, alert, oriented x3, responsive, supervisor quilting III-XII nml as tested, speech normal Psychiatric: normal inspection, judgement/insight normal, mood/affect normal Medical Decision Making Diagnostic Impression: Primary Impression: CHF exacerbation ER Course Presented for shortness of breath. Differential diagnosis include was not limited to CHF, substance abuse, pneumonia, among others. EKG interpreted by me showed normal sinus rhythm with a rate of 86 with left bundle branch block. QTc was noted to be somewhat prolonged. Patient was given IV Lasix. Patient was noted to have chest x-ray with normal cardiac size. No evident infiltrate.Patient laboratory testing was unremarkable. He was noted to have prior history of CHF and appears to be stable at this time. Patient was given prescriptions for diuretics. He was advised to follow-up with his primary care physician Dr. Douglas Anthony. Labs Test 09/08/18 12:05 White Blood Count 3.7 K/UL (4.8-10.8) Red Blood Count 4.90 M/UL (4.70-6.10) Hemoglobin 13.7 G/DL (14.2-18.0) Hematocrit 43.3 % (42.0-52.0) Mean Corpuscular Volume 88 FL (80-99) Mean Corpuscular Hemoglobin 28.0 PG (27.0-31.0) Mean Corpuscular Hemoglobin Concent 31.7 G/DL (32.0-36.0) Red Cell Distribution Width 15.6 % (11.6-14.8) Platelet Count 145 K/UL (150-450) Mean Platelet Volume 8.4 FL (6.5-10.1) Neutrophils (%) (Auto) 46.0 % (45.0-75.0) Lymphocytes (%) (Auto) 31.4 % (20.0-45.0) Monocytes (%) (Auto) 18.9 % (1.0-10.0) Eosinophils (%) (Auto) 1.9 % (0.0-3.0) Basophils (%) (Auto) 1.9 % (0.0-2.0) Prothrombin Time 11.3 SEC (9.30-11.50) Prothromb Time International Ratio 1.1 (0.9-1.1) Activated Partial Thromboplast Time 28 SEC (23-33) EKG Diagnostic Results Rate: normal Rhythm: NSR ST Segments: other - left bundle branch block Last Vital Signs Date Time Temp Pulse Resp B/P (MAP) Pulse Ox O2 Delivery O2 Flow Rate FiO2 09/08/18 11:56 98.1 79 20 117/81 (93) 99 Room Air Status: improved Disposition: HOME, SELF-CARE Condition: Stable Scripts Spironolactone* (ALDACTONE*) 25 Mg Tablet 25 MG ORAL DAILY, #30 TAB Prov: Raman Smith MD 09/08/18 Furosemide* (LASIX*) 40 Mg Tablet 40 MG ORAL TWICE A DAY, #30 TAB Prov: Raman Smith MD 09/08/18 Raman Smith MD Sep 08, 2018 12:13
[2018-09-08 12:20] VITALS: BP 117/81
--- NOTE | 2018-09-08 12:25 | NUR ---
ED Nurse Note: pt able to give urine sample. iv stablished on pt left ac with good blood return. blood drawn and was sent to lab. iv lasix given. will continue to monitor.
--- NOTE | 2018-09-08 12:30 | NUR ---
ED Nurse Note: xray went on bedside
[2018-09-08 12:52] LABS: BASOPHILS % (AUTO) 1.9 % (0.0-2.0); EOSINOPHILS % (AUTO) 1.9 % (0.0-3.0); HEMATOCRIT 43.3 % (42.0-52.0); HEMOGLOBIN 13.7 G/DL (14.2-18.0); LYMPHOCYTES % (AUTO) 31.4 % (20.0-45.0); MEAN CORPUSCULAR VOLUME 88 FL (80-99); MONOCYTES % (AUTO) 18.9 % (1.0-10.0); PLATELET COUNT 145 K/UL (150-450); RED CELL DISTRIBUTION WIDTH 15.6 % (11.6-14.8); WHITE BLOOD COUNT 3.7 K/UL (4.8-10.8)
[2018-09-08 13:03] LABS: INR 1.1 (0.9-1.1)
[2018-09-08] MEDS ORDERED: FUROSEMIDE40 MG ORAL (13:05)
[2018-09-08] MEDS ORDERED: SPIRONOLACTONE25 MG ORAL (13:05)
--- NOTE | 2018-09-08 13:06 | Diagnostic Imaging Report ---
EXAM: XR Chest, 1 View CLINICAL HISTORY: SOB TECHNIQUE: Frontal view of the chest. COMPARISON: No relevant prior studies available. FINDINGS: Lungs: No consolidation. Pleural space: Unremarkable. No pneumothorax. Heart: Large cardiac silhouette. Mediastinum: Unremarkable. Bones/joints: No acute fracture. IMPRESSION: Large cardiac silhouette.
[2018-09-08 13:35] VITALS: BP 102/80
[2018-09-08 13:54] LABS: ANION GAP 5 mmol/L (5-15); BLOOD UREA NITROGEN 17 mg/dL (7-18); CALCIUM 8.7 MG/DL (8.5-10.1); CARBON DIOXIDE 29 MMOL/L (21-32); CHLORIDE 106 MMOL/L (98-107); CREATININE 1.2 MG/DL (0.55-1.30); POTASSIUM 4.4 MMOL/L (3.5-5.1); SODIUM 140 MMOL/L (136-145)
[2018-09-08 14:05] VITALS: BP 115/87
[2018-09-08 14:07] LABS: ALANINE AMINOTRANSFERASE 55 U/L (12-78); ALBUMIN 3.1 G/DL (3.4-5.0); ALBUMIN/GLOBULIN RATIO 0.5 (1.0-2.7); ALKALINE PHOSPHATASE 76 U/L (46-116); ASPARTATE AMINO TRANSFERASE 71 U/L (15-37); BILIRUBIN,TOTAL 0.6 MG/DL (0.2-1.0); CREATINE KINASE 91 U/L (26-308)
== END 2018-09-08 14:14 | disposition home or self-care (01) ==
LOC: EMR 12:36
DX: I11.0 Hypertensive heart disease with heart failure (principal); I50.9 Heart failure, unspecified; J45.909 Unspecified asthma, uncomplicated; B19.20 Unspecified viral hepatitis C without hepatic coma; B20 Human immunodeficiency virus [HIV] disease; Z88.2 Allergy status to sulfonamides
CPT/HCPCS: 36415; 71045; 80053; 80307; 82550; 82553; 83880; 84484; 85025; 85610; 85730; 93005; 96374; 99284; J1940

== ENCOUNTER 2018-09-15 18:30 | Emergency (ER) | payer OTHER ==
[~2018-09-15] VITALS: Ht 177.8 cm; Wt 52.2 kg
[~2018-09-15 18:30] MED LIST changes: +SPIRONOLACTONE25 MG ORAL
[2018-09-15 19:08] VITALS: BP 117/76
--- NOTE | 2018-09-15 19:14 | NUR ---
ED Nurse Note: Patient walked in to ER c/o upper body pain 11/15. Stated that went to [facility] today and the told him that he has shingles. AAO x4, VSS at this time, patient presented with matson around his torso.
[2018-09-15] MEDS ORDERED: VALACYCLOVIR1000 MG ORAL (19:30)
[2018-09-15 19:40] VITALS: BP 117/76
--- NOTE | 2018-09-15 19:40 | NUR ---
ED Nurse Note: Pt cleared by health care Provider for discharge. DC instructions/prescription was given and explained to pt and verbalized understanding of teachings. All medical deviecs such as ID band removed. Pt is AAO x4, ambulatory and left with all personal belongings.
--- NOTE | 2018-09-15 20:32 | Emergency Room Report ---
History of Present Illness General Chief Complaint: Pain Present Illness HPI 58 year old male complaining of painful rash across right chest x3 days. Pain is 8/10, sharp and burning in quality. No aggravating/ relieving factors. States had tactile fever 3 days ago. Denies vomiting, diarrhea, abdominal pain. Allergies: Coded Allergies: SULFA (SULFONAMIDE ANTIBIOTICS) (Verified Allergy, Unknown, 05/21/18) Patient History Past Medical History: CHF, HIV, other - hepatitis C Past Surgical History: none Social History: Denies: smoking, alcohol use, drug use Nursing Documentation-PMH Hx Cardiac Problems: Yes - chronic heart failure, hepatitis c, human immunodeficiency virus Hx Hypertension: Yes Hx Asthma: Yes Hx Cancer: No Hx Gastrointestinal Problems: Yes Hx Neurological Problems: No Review of Systems All Other Systems: negative except mentioned in HPI Physical Exam Vital Signs Date Time Temp Pulse Resp B/P (MAP) Pulse Ox O2 Delivery O2 Flow Rate FiO2 09/15/18 18:52 97.5 91 22 117/76 (90) 97 Room Air Sp02 EP Interpretation: reviewed, normal Eyes: bilateral eye normal inspection, bilateral eye PERRL ENT: hearing grossly normal, normal pharynx, no angioedema, normal voice, other Cardiovascular #1: regular rate, rhythm, no edema Skin: rash - closed vesicles along the right T5 dermatome anterior chest, no rash on the back or face. Medical Decision Making PA Attestation This patient was seen under the direct supervision of [Dr. Reyse] who directed all aspects of care and diagnostic interpretation. Diagnostic Impression: Primary Impression: Shingles Qualified Codes: B02.9 - Zoster without complications ER Course ED course HPI: 58 year old male complaining of painful rash across right chest x3 days. Pain is 8/10, sharp and burning in quality. No aggravating/ relieving factors. States had tactile fever 3 days ago. Denies vomiting, diarrhea, abdominal pain. Ddx: Shingles versus contact dermatitis versus insect bite HPI & PE consistent with: Shingles Orders/ Interventions: None. Physical exam shows vesicles localized to right T5 dermatome of anterior chest. No facial involvement. Case discussed with Dr. Reyes, who agreed with the ER course and disposition Disposition: Patient stable for discharge home. Prescription for valacyclovir for 1 week given. Keep clean and dry. Avoid touching lesions. Followup with PCP/infectious disease in 2 to 3 days return to ED if worsening symptoms, new symptoms, or sudden change in condition. Please note that this Emergency Department Report was dictated using [employer] chest officer technology software, occasionally this can lead to erroneous entry secondary to interpretation by the dictation equipment. Last Vital Signs Date Time Temp Pulse Resp B/P (MAP) Pulse Ox O2 Delivery O2 Flow Rate FiO2 09/15/18 19:08 97.5 92 22 117/76 97 Room Air Status: unchanged Disposition: HOME, SELF-CARE Condition: Stable Scripts Valacyclovir Hcl (VALACYCLOVIR) 1,000 Mg Tablet 1000 MG ORAL EVERY 8 HOURS for 7 Days, #21 TAB Prov: Carlos Holley 09/15/18 Patient Instructions: Shingles, [id number] Additional Instructions: Take medications as prescribed. Follow-up with PCP/infectious disease in 2 days or return to ED if any symptoms, new symptoms, or sudden change in condition. Carlos Holley Sep 15, 2018 20:32
== END 2018-09-15 19:40 | disposition home or self-care (01) ==
LOC: EMR 19:06
DX: B02.9 Zoster without complications (principal); Z88.2 Allergy status to sulfonamides; B20 Human immunodeficiency virus [HIV] disease; Z86.19 Personal history of other infectious and parasitic diseases; I11.0 Hypertensive heart disease with heart failure; I50.9 Heart failure, unspecified
CPT/HCPCS: 99282

== ENCOUNTER 2018-12-28 12:15 | Emergency (ER) | payer OTHER ==
[~2018-12-28] VITALS: Ht 172.7 cm; Wt 77.1 kg
[~2018-12-28 12:15] MED LIST changes: +VALACYCLOVIR1000 MG ORAL
[2018-12-28 12:53] VITALS: BP 116/78
--- NOTE | 2018-12-28 12:53 | NUR ---
ED Nurse Note: Pt is aaox3, vss, no acute distress. Pt c/o pain in his right leg. Pt states it is 9/10. MD with pt and coronary care unit nurse at bedside.
--- NOTE | 2018-12-28 12:54 | Emergency Room Report ---
History of Present Illness General Chief Complaint: Pain Source: Patient, Medical Record Present Illness HPI Patient presents with complaints of swelling to both of his legs patient has seen his dispatcher motor vehicle yesterday initiated on different diuretics Reports that he had continued swelling and presents to the ER denies any chest pain denies any shortness of breath at rest He does feel some shortness of breath however with exertion There is a gentleman in the room who reports that he is the patient's healthcare administrative assistant Reported concerns that the patient was making reports a feeling severely depressed Denies any homicidal thoughts denies any specific suicidal thoughts wants to hurt himself However these concerns were verbalized by the showcase maker Allergies: Coded Allergies: SULFA (SULFONAMIDE ANTIBIOTICS) (Verified Allergy, Unknown, 05/21/18) Patient History Past Medical History: see triage record Reviewed Nursing Documentation: PMH: Agreed; PSxH: Agreed Nursing Documentation-PMH Past Medical History: No History, Except For Hx Cardiac Problems: Yes - chronic heart failure, hepatitis C, HIV Hx Hypertension: Yes Hx Asthma: Yes Hx COPD: No Hx Diabetes: No Hx Cancer: No Hx Gastrointestinal Problems: Yes Hx Dialysis: No History Of Psychiatric Problem: Yes - Schizophrenia Hx Neurological Problems: No Hx Cerebrovascular Accident: No Hx Seizures: No Review of Systems All Other Systems: negative except mentioned in HPI Physical Exam Vital Signs Date Time Temp Pulse Resp B/P (MAP) Pulse Ox O2 Delivery O2 Flow Rate FiO2 12/28/18 12:40 98.2 87 16 110/75 (87) 99 Room Air Sp02 EP Interpretation: reviewed, normal General Appearance: well appearing, no apparent distress Head: normocephalic, atraumatic Eyes: bilateral eye PERRL, bilateral eye EOMI ENT: EOM grossly intact Neck: supple Respiratory: lungs clear, no respiratory distress, no retraction Cardiovascular #1: regular rate, rhythm Gastrointestinal: non tender Musculoskeletal: other - 1 out of 4 pitting edema bilateral lower extremity Neurologic: alert, oriented Skin: no rash Lymphatic: no adenopathy Medical Decision Making Diagnostic Impression: Primary Impression: Peripheral edema ER Course Patient is a fairly complex patient with multiple differential to consideration including but not limited to cardiac cardiopulmonary and vascular emergencies Patient does have significant history of CHF also has very poor EF % With today's exam and presentation it appears the patient has mild fluid overload x-ray does not show any obvious pulmonary congestion which clinically correlates with the exam At the time of disposition the social worker masters at bedside also reports that there was some question of the patient having feelings of depression He was provided with outpatient resources and requested to follow closely with primary physician Chest X-Ray Diagnostic Results Chest X-Ray Diagnostic Results : Chest X-Ray Ordered: Yes # of Views/Limited/Complete: 1 View Indication: Chest Pain EP Interpretation: Yes Interpretation: no consolidation, no effusion, no pneumothorax Impression: No acute disease Electronically Signed by: Anant Vazquez DO Last Vital Signs Date Time Temp Pulse Resp B/P (MAP) Pulse Ox O2 Delivery O2 Flow Rate FiO2 12/28/18 12:40 98.2 87 16 110/75 (87) 99 Room Air Status: improved Disposition: HOME, SELF-CARE Condition: Improved Additional Instructions: Patient is provided with the discharge instructions notified to follow up with primary doctor in the next 2-3 days otherwise return to the er with any worsening symptoms. Please note that this report is being documented using [employer] technology. This can lead to erroneous entry secondary to incorrect interpretation by the dictating instrument. Anant Vazquez DO Dec 28, 2018 12:54
--- NOTE | 2018-12-28 13:09 | NUR ---
ED Nurse Note: Pt with x-ray tech
[2018-12-28 13:36] VITALS: BP 115/78
--- NOTE | 2018-12-28 13:36 | NUR ---
ER DISCHARGE NOTE: Patient is cleared to be discharged per ERMD, pt is aox4, on room air, with stable vital signs. pt was given dc and prescription instructions, pt was able to verbalize understanding, pt id band removed without complications. pt is able to ambulate with steady gait. pt took all belongings. Pt states his pain is 1/10
--- NOTE | 2018-12-28 13:53 | Diagnostic Imaging Report ---
Indication: Chest pain Technique: One view of the chest Comparison: 09/08/2018 Findings: The heart is enlarged. The lungs and pleural spaces are clear. There is no significant interim change Impression: Cardiomegaly. No acute process
== END 2018-12-28 13:36 | disposition home or self-care (01) ==
LOC: EMR 13:20
DX: R60.0 Localized edema (principal); R06.02 Shortness of breath; Z88.2 Allergy status to sulfonamides; Z86.19 Personal history of other infectious and parasitic diseases; B20 Human immunodeficiency virus [HIV] disease; I11.0 Hypertensive heart disease with heart failure; I50.9 Heart failure, unspecified; F20.9 Schizophrenia, unspecified
CPT/HCPCS: 71045; Z7502; 99283

== ENCOUNTER 2020-02-03 07:56 | Emergency (ER) | payer OTHER ==
[~2020-02-03] VITALS: Ht 177.8 cm; Wt 81.6 kg
[~2020-02-03 07:56] MED LIST changes: +CARVEDILOL6.25 MG ORAL; +LOSARTAN POTASS25 MG ORAL
[2020-02-03] MEDS ORDERED: Nitroglycerin 2% oint pkt TOPIC ONE (08:15)
--- NOTE | 2020-02-03 08:19 | Emergency Room Report ---
History of Present Illness General Chief Complaint: Chest Pain Source: Patient Present Illness HPI 59-year-old male history of heart failure presents with shortness of breath chest tightness x1 day patient reports that this is similar to previous CHF exacerbations, alleviated with Lasix aggravated by lying flat severity is moderate, constant, no fevers no chills patient endorses a dry cough, patient presents for evaluation and treatment Allergies: Coded Allergies: SULFA (SULFONAMIDE ANTIBIOTICS) (Verified Allergy, Unknown, 05/21/18) COVID-19 Screening Contact w/high risk pt: No Experienced COVID-19 symptoms?: No COVID-19 Testing performed SEW OUT OPERATOR: No Patient History Past Medical History: see triage record Reviewed Nursing Documentation: PMH: Agreed; PSxH: Agreed Nursing Documentation-PMH Hx Cardiac Problems: Yes - chronic heart failure, hepatitis C, HIV Hx Hypertension: Yes Hx Asthma: Yes Hx COPD: No Hx Diabetes: No Hx Cancer: No Hx Gastrointestinal Problems: Yes Hx Dialysis: No Hx Neurological Problems: No Hx Cerebrovascular Accident: No Hx Seizures: No Review of Systems All Other Systems: negative except mentioned in HPI Physical Exam Vital Signs Date Time Temp Pulse Resp B/P (MAP) Pulse Ox O2 Delivery O2 Flow Rate FiO2 02/03/20 08:11 98.6 86 20 130/80 (97) 98 Room Air Sp02 EP Interpretation: reviewed, normal General Appearance: well appearing, no apparent distress, alert Head: normocephalic, atraumatic Eyes: bilateral eye PERRL, bilateral eye EOMI ENT: uvula midline, moist mucus membranes Neck: supple, thyroid normal, supple/symm/no masses Respiratory: no respiratory distress, no retraction, no accessory muscle use, decreased breath sounds - Bilaterally Cardiovascular #1: normal peripheral pulses, regular rate, rhythm, no edema, no gallop, no murmur Gastrointestinal: non tender, soft, no guarding, no rebound Musculoskeletal: normal inspection Neurologic: alert, oriented x3 Psychiatric: mood/affect normal Skin: no rash, warm/dry Procedures Critical Care Time Critical Care Time Given the critical condition in which the patient arrived, the patient was immediately assessed by myself and the nurse, and cardiac monitoring initiated due to the potential for rapid decompensation of the patient's clinical condition. During the course of the patient's stay, I spent a considerable amount of time at the bedside performing serial re-evaluations of the patient's hemodynamic and clinical status because of the recognized potential threat to life or limb in this condition. I then had a chance to review not only all of the available current laboratory and radiographic studies obtained today, but I also reviewed old records available to me at the time. Additionally, any ancillary information available including data entry processor records were reviewed. Sequential vital signs were obtained. Critical Care time of 33 minutes was performed exclusive of billable procedures. Require Lovenox, aspirin and nitroglycerin for elevated troponin Medical Decision Making Diagnostic Impression: Primary Impression: Chest pain Qualified Codes: R07.9 - Chest pain, unspecified Additional Impressions: CHF exacerbation Qualified Codes: I50.9 - Heart failure, unspecified NSTEMI (non-ST elevated myocardial infarction) ER Course 59-year-old male presents with CHF exacerbation slight troponin leak Patient given Lovenox, Lasix, aspirin and nitroglycerin Reevaluation 10:56 AM patient states he feels completely better after urinating significantly Patient initially to be admitted Patient wants leave AGAINST MEDICAL ADVICE states he wants to go home states he feels a lot better The patient has requested to leave the ED against medical advice. The patient reason(s) for leaving include, but are not limited to, the following: I want to go home. I believe this patient is of sound mind and competent to refuse medical care. The patient is responding and asking questions appropriately. The patient is oriented to person, place and time. The patient is not psychotic, delusional, suicidal, homicidal or hallucinating. The patient demonstrates a normal mental capacity to make decisions regarding their healthcare. The patient is clinically sober and does not appear to be under the influence of any illicit drugs at this time. The patient has been advised of the risks, in layman terms, of leaving AMA which include, but are not limited to , coma, permanent disability, loss of current lifestyle, delay in diagnosis. Alternatives have been offered - the patient remains steadfast in their wish to leave. The patient has been advised that should they change their mind they are welcome to return to this hospital, or any other, at any time. The patient understands that in no way does an AMA discharge mean that I do not want them to have the best medical care available. To this end, I have provided appropriate prescriptions, referrals, and discharge instructions. The patient did sign AMA paperwork. The above discussion was w itnessed by another member of staff. Strict return precautions discussed Laboratory Tests Test 02/03/20 08:10 White Blood Count 5.8 K/UL (4.8-10.8) Red Blood Count 4.38 M/UL (4.70-6.10) L Hemoglobin 12.9 G/DL (14.2-18.0) L Hematocrit 37.6 % (42.0-52.0) L Mean Corpuscular Volume 86 FL (80-99) Mean Corpuscular Hemoglobin 29.5 PG (27.0-31.0) Mean Corpuscular Hemoglobin Concent 34.4 G/DL (32.0-36.0) Red Cell Distribution Width 17.2 % (11.6-14.8) H Platelet Count 171 K/UL (150-450) Mean Platelet Volume 7.9 FL (6.5-10.1) Neutrophils (%) (Auto) 75.9 % (45.0-75.0) H Lymphocytes (%) (Auto) 15.2 % (20.0-45.0) L Monocytes (%) (Auto) 7.6 % (1.0-10.0) Eosinophils (%) (Auto) 0.5 % (0.0-3.0) Basophils (%) (Auto) 0.9 % (0.0-2.0) Sodium Level 137 MMOL/L (136-145) Potassium Level 3.6 MMOL/L (3.5-5.1) Chloride Level 106 MMOL/L (98-107) Carbon Dioxide Level 27 MMOL/L (21-32) Anion Gap 4 mmol/L (5-15) L Blood Urea Nitrogen 23 mg/dL (7-18) H Creatinine 1.7 MG/DL (0.55-1.30) H Estimated Glomerular Filtration Rate 41.2 mL/min (>60) Glucose Level 85 MG/DL (74-106) Calcium Level 8.0 MG/DL (8.5-10.1) L Total Bilirubin 0.5 MG/DL (0.2-1.0) Aspartate Amino Transferase (AST) 39 U/L (15-37) H Alanine Aminotransferase (ALT) 28 U/L (12-78) Alkaline Phosphatase 77 U/L (46-116) Troponin I 0.086 ng/mL (0.000-0.056) Pro-B-Type Natriuretic Peptide 04634 pg/mL (0-125) H Total Protein 7.9 G/DL (6.4-8.2) Albumin 2.6 G/DL (3.4-5.0) L Globulin 5.3 g/dL Albumin/Globulin Ratio 0.5 (1.0-2.7) L Microbiology Date/Time Source Procedure Growth Status 02/03/20 08:10 Nasopharynx SARS-CoV-2 RdRp Gene Assay - Final Complete EKG Diagnostic Results Troponin ordered: Yes When was troponin ordered?: Feb 03, 2020 EKG Time: 08:29 EP Interpretation: NSR, rate 88, QTc 539, left bundle branch block Rhythm Strip Diag. Results Rhythm Strip Time: 08:36 EP Interpretation: yes Rate: 88 Rhythm: NSR, no PVC's, no ectopy Last Vital Signs Date Time Temp Pulse Resp B/P (MAP) Pulse Ox O2 Delivery O2 Flow Rate FiO2 02/03/20 08:11 98.6 86 20 130/80 (97) 98 Room Air Disposition: AGAINST MEDICAL ADVICE Condition: Critical Referrals: [facility] Patient Instructions: Heart Failure, [id number] Additional Instructions: The patient was provided with discharge instructions, notified to follow-up with a primary care doctor and or specialist in the next 24-48 hours, and to return to the ED if they have worsening of their symptoms. Please note that this report is being documented using [employer] technology. This can lead to erroneous entry secondary to incorrect interpretation by the dictating instrument. Med Reyes MD Feb 03, 2020 08:19
[2020-02-03 08:25] VITALS: BP 136/89
--- NOTE | 2020-02-03 08:25 | NUR ---
ED Nurse Note: Patient walked in to ER c/o chest pain since yesterday with shortness of breath denies any cough. Patient presented with steady gait, AAO x4, VSS at this time. Patient has even non labored breathing, O2 sat 100% on RA.
[2020-02-03 08:57] LABS: BASOPHILS % (AUTO) 0.9 % (0.0-2.0); EOSINOPHILS % (AUTO) 0.5 % (0.0-3.0); HEMATOCRIT 37.6 % (42.0-52.0); HEMOGLOBIN 12.9 G/DL (14.2-18.0); LYMPHOCYTES % (AUTO) 15.2 % (20.0-45.0); MEAN CORPUSCULAR VOLUME 86 FL (80-99); MONOCYTES % (AUTO) 7.6 % (1.0-10.0); NEUTROPHILS % (AUTO) 75.9 % (45.0-75.0); PLATELET COUNT 171 K/UL (150-450); RED BLOOD COUNT 4.38 M/UL (4.70-6.10); RED CELL DISTRIBUTION WIDTH 17.2 % (11.6-14.8); WHITE BLOOD COUNT 5.8 K/UL (4.8-10.8)
[2020-02-03 09:23] LABS: CREATININE 1.7 MG/DL (0.55-1.30); POTASSIUM 3.6 MMOL/L (3.5-5.1)
[2020-02-03 09:34] LABS: ALBUMIN 2.6 G/DL (3.4-5.0); ALBUMIN/GLOBULIN RATIO 0.5 (1.0-2.7); BILIRUBIN,TOTAL 0.5 MG/DL (0.2-1.0)
[2020-02-03] MEDS ORDERED: Enoxaparin 80mg Inj SUBQ ONE (09:45)
--- NOTE | 2020-02-03 09:54 | Diagnostic Imaging Report ---
Indication: Shortness of breath Technique: One view of the chest Comparison: 10/19/2019 Findings: The heart is enlarged. The lungs and pleural spaces are clear. Findings are unchanged Impression: Cardiomegaly. No acute process
--- NOTE | 2020-02-03 10:57 | NUR ---
ED Nurse Note: Patient left AMA. Stated fell much better, can normaly breath, do not sees any reason to stay. Patient left ER with steady gait, AAO x4, all VSS at this time, took all belongings.
== END 2020-02-03 10:57 | disposition left against medical advice (07) ==
LOC: EMR 08:21 → CANBEDREQ 11:06
DX: R07.89 Other chest pain (principal); I50.9 Heart failure, unspecified; I11.0 Hypertensive heart disease with heart failure; I21.4 Non-ST elevation (NSTEMI) myocardial infarction; J45.909 Unspecified asthma, uncomplicated; Z20.828 Contact with and (suspected) exposure to other viral communicable diseases; Z88.2 Allergy status to sulfonamides
CPT/HCPCS: 36415; 71045; 80053; 83880; 84484; 85025; 93005; 96374; J1650; J1940; U0002; Z7502; 99284

== ENCOUNTER 2020-02-16 23:40 | Emergency (ER) | payer OTHER ==
[~2020-02-16] VITALS: Ht 177.8 cm; Wt 72.6 kg
[2020-02-17] MEDS ORDERED: Nitroglycerin 2% oint pkt TOPIC ONE
--- NOTE | 2020-02-17 00:05 | Emergency Room Report ---
History of Present Illness General Chief Complaint: Dyspnea/Respdistress Source: Patient Present Illness HPI Disclaimer: Please note that this report is being documented using [employer] technology. This can lead to erroneous entry secondary to incorrect interpretation by the dictating instrument. HPI: 59-year-old male history of CHF reduced ejection fraction presents for evaluation of shortness of breath. Patient dates over the past 3 days he has had worsening shortness of breath and some chest tightness. Worse with lying down and better with sitting up. Increase in exertional dyspnea. Mild swelling of the legs. Consistent with his prior episodes of CHF exacerbation. He states he is compliant with his 40 mg Lasix regimen as well as his other medications but they no longer seem to be working for him. He denies chest pain or tightness at this time. Denies fever or chills. Baseline cough. No known exposure to COVID-19. He tested negative on 02/02. PMH: CHF, HIV, hepatitis PSH: Reviewed Allergies: Sulfa medications Social Hx: Former substance abuse Allergies: Coded Allergies: SULFA (SULFONAMIDE ANTIBIOTICS) (Verified Allergy, Unknown, 05/21/18) COVID-19 Screening Contact w/high risk pt: No Experienced COVID-19 symptoms?: Yes COVID-19 Testing performed TECHNOLOGY COACH: Yes - Feb 02 COVID-19 Screening: Negative COVID-19 COVID-19 Testing Source: [facility] Nursing Documentation-PMH Past Medical History: No Stated History Hx Cardiac Problems: Yes - chronic heart failure, hepatitis C, HIV Hx Hypertension: Yes Hx Asthma: Yes Hx COPD: No Hx Diabetes: No Hx Cancer: No Hx Gastrointestinal Problems: Yes Hx Dialysis: No Hx Neurological Problems: No Hx Cerebrovascular Accident: No Hx Seizures: No Review of Systems All Other Systems: negative except mentioned in HPI Physical Exam Vital Signs Date Time Temp Pulse Resp B/P (MAP) Pulse Ox O2 Delivery O2 Flow Rate FiO2 02/16/20 23:50 98.4 88 18 126/87 (100) 100 Room Air General: Awake and alert, no acute distress HEENT: NC/AT. EOMI. Cardiovascular: RRR. S1 and S2 normal. No murmur appreciated Resp: Normal work of breathing. No cough during exam. No wheezing. Faint crackles bilaterally. Abdomen: Abdomen is soft, nondistended. Nontender Skin: Intact. No abrasions, laceration or rash over the exposed skin MSK: Normal tone and bulk. Moving all extremities. No obvious deformity. 1+ lower extremity edema Neuro: Awake and alert. Mentating appropriately. Medical Decision Making Diagnostic Impression: Primary Impression: CHF exacerbation Additional Impression: CKD (chronic kidney disease) ER Course 59-year-old male presents for evaluation of shortness of breath. Differential includes involvement to bronchitis, pneumonia, pneumothorax, ACS, CHF exacerbation, COPD exacerbation, asthma exacerbation among others. Saturating 1% on room air no respiratory distress. Most consistent with CHF exacerbation. Mild vascular congestion on x-ray but no obvious infiltrates. Cardiomegaly is seen on prior x-rays. Treated with nitroglycerin ointment and IV Lasix. Labs show a slightly low white count of 4.6. COVID-19 swab is negative. Patient's renal status slightly worse than last visit at 2.0 up from 1.7. History of chronic kidney disease per labs. Troponin within normal limits. BNP elevated consistent with CHF exacerbation. Diuresing well after Lasix. Discussed admission with the patient he does not want to stay. He states he just needs to go home and get some sleep. He will call his doctor in the morning. Vital signs are stable he is well-appearing. Instructed to return new or worsening symptoms. Laboratory Tests Test 02/16/20 23:59 White Blood Count 4.6 K/UL (4.8-10.8) L Red Blood Count 4.71 M/UL (4.70-6.10) Hemoglobin 14.0 G/DL (14.2-18.0) L Hematocrit 43.7 % (42.0-52.0) Mean Corpuscular Volume 93 FL (80-99) Mean Corpuscular Hemoglobin 29.8 PG (27.0-31.0) Mean Corpuscular Hemoglobin Concent 32.1 G/DL (32.0-36.0) Red Cell Distribution Width 17.6 % (11.6-14.8) H Platelet Count 157 K/UL (150-450) Mean Platelet Volume 8.5 FL (6.5-10.1) Neutrophils (%) (Auto) 57.8 % (45.0-75.0) Lymphocytes (%) (Auto) 27.6 % (20.0-45.0) Monocytes (%) (Auto) 10.4 % (1.0-10.0) H Eosinophils (%) (Auto) 3.1 % (0.0-3.0) H Basophils (%) (Auto) 1.1 % (0.0-2.0) Sodium Level 136 MMOL/L (136-145) Potassium Level 3.8 MMOL/L (3.5-5.1) Chloride Level 101 MMOL/L (98-107) Carbon Dioxide Level 31 MMOL/L (21-32) Anion Gap 4 mmol/L (5-15) L Blood Urea Nitrogen 24 mg/dL (7-18) H Creatinine 2.0 MG/DL (0.55-1.30) H Estimated Glomerular Filtration Rate 34.1 mL/min (>60) Glucose Level 97 MG/DL (74-106) Calcium Level 8.6 MG/DL (8.5-10.1) Total Bilirubin 0.6 MG/DL (0.2-1.0) Aspartate Amino Transferase (AST) 81 U/L (15-37) H Alanine Aminotransferase (ALT) 123 U/L (12-78) H Alkaline Phosphatase 80 U/L (46-116) Troponin I 0.028 ng/mL (0.000-0.056) Pro-B-Type Natriuretic Peptide 9806 pg/mL (0-125) H Total Protein 9.1 G/DL (6.4-8.2) H Albumin 2.8 G/DL (3.4-5.0) L Globulin 6.3 g/dL Albumin/Globulin Ratio 0.4 (1.0-2.7) L Microbiology Date/Time Source Procedure Growth Status 02/17/20 00:13 Nasopharynx SARS-CoV-2 RdRp Gene Assay - Final Complete EKG Diagnostic Results Troponin ordered: Yes When was troponin ordered?: Feb 17, 2020 EKG Time: 00:04 Rate: normal Rhythm: NSR Other Impression Sinus rhythm, right axis, prolonged QTC at 522 ms, prolonged QRS 162 ms, incomplete left bundle branch block pattern. Diffuse nonspecific ST segment changes largely unchanged from EKG of 02/03/2020 Rhythm Strip Diag. Results Rhythm Strip Time: 00:04 EP Interpretation: yes Rate: 80s Rhythm: NSR, no PVC's, no ectopy Chest X-Ray Diagnostic Results Chest X-Ray Diagnostic Results : Chest X-Ray Ordered: Yes # of Views/Limited/Complete: 1 View Indication: Shortness of Breath EP Interpretation: Yes Interpretation: no consolidation, no effusion, no pneumothorax, no acute cardiopulmonary disease, other - Mild vascular congestion Impression: No acute disease Electronically Signed by: Electronically signed by Dr. Collin Santos MD Last Vital Signs Date Time Temp Pulse Resp B/P (MAP) Pulse Ox O2 Delivery O2 Flow Rate FiO2 02/16/20 23:50 98.4 88 18 126/87 (100) 100 Room Air Disposition: HOME, SELF-CARE Condition: Stable Referrals: [facility],REFERRING (PCP) Collin Santos MD Feb 17, 2020 00:05
[2020-02-17 00:10] VITALS: BP 122/82
--- NOTE | 2020-02-17 00:19 | NUR ---
Farida mathews in EDM - 02/17/20 at 0019 by PAOLA ED Nurse Note: Pt walked in fo
--- NOTE | 2020-02-17 00:19 | NUR ---
ED Nurse Note: PT walked in from home, walks with a steady gait, He is able to speak in complete sentances. His vitals are stable on RA as documented. He states that he has chest pain and difficulty breathing. EKG done at bedside, labs drawn.
[2020-02-17 00:23] LABS: BASOPHILS % (AUTO) 1.1 % (0.0-2.0); EOSINOPHILS % (AUTO) 3.1 % (0.0-3.0); HEMATOCRIT 43.7 % (42.0-52.0); LYMPHOCYTES % (AUTO) 27.6 % (20.0-45.0); MEAN CORPUSCULAR VOLUME 93 FL (80-99); MONOCYTES % (AUTO) 10.4 % (1.0-10.0); NEUTROPHILS % (AUTO) 57.8 % (45.0-75.0); PLATELET COUNT 157 K/UL (150-450); RED BLOOD COUNT 4.71 M/UL (4.70-6.10); RED CELL DISTRIBUTION WIDTH 17.6 % (11.6-14.8); WHITE BLOOD COUNT 4.6 K/UL (4.8-10.8)
[2020-02-17 00:34] LABS: CALCIUM 8.6 MG/DL (8.5-10.1); POTASSIUM 3.8 MMOL/L (3.5-5.1)
[2020-02-17 00:46] LABS: ALBUMIN 2.8 G/DL (3.4-5.0); ALBUMIN/GLOBULIN RATIO 0.4 (1.0-2.7); BILIRUBIN,TOTAL 0.6 MG/DL (0.2-1.0)
--- NOTE | 2020-02-17 00:54 | Diagnostic Imaging Report ---
EXAM: XR Chest, 1 View CLINICAL HISTORY: SOB TECHNIQUE: Frontal view of the chest. COMPARISON: 02/03/2020. FINDINGS: Lungs: Unremarkable. No consolidation. Pleural space: Unremarkable. No pneumothorax. Heart: Cardiomegaly. Mediastinum: Unremarkable. Bones/joints: Unremarkable. Vasculature: Mild fullness of the central markings and cephalad distribution, cannot exclude early vascular congestion. IMPRESSION: Cardiomegaly. Possible early vascular congestion, clinical correlation recommended.
[2020-02-17] MEDS ORDERED: Acetaminophen 500mg (ES) tab ORAL ONE ×2 (01:40→01:45)
[2020-02-17 02:17] VITALS: BP 116/78
--- NOTE | 2020-02-17 02:17 | NUR ---
ED Nurse Note: Pt is resting with eyes closed, breathing is even and unlabored, vitals are stable on RA.
[2020-02-17 02:35] VITALS: BP 112/79
--- NOTE | 2020-02-17 02:36 | NUR ---
ER DISCHARGE NOTE: Patient is cleared to be discharged per ERMD, pt is aox4, on room air, with stable vital signs. pt was given dc instructions, pt was able to verbalize understanding, pt id band and iv site removed without complications. pt is able to ambulate with steady gait. pt took all belongings. Pt left in a private car
--- NOTE | 2020-02-17 10:45 | Cardiology Report ---
APPROVED REPORT EKG Measurement Heart [id number] <Conclusion> Normal sinus rhythm Biatrial enlargement LBBB Abnormal ECG
== END 2020-02-17 02:37 | disposition home or self-care (01) ==
LOC: EMR 23:54
DX: I50.9 Heart failure, unspecified (principal); I13.2 Hypertensive heart and chronic kidney disease with heart failure and with stage 5 chronic kidney disease, or end stage renal disease; N18.6 End stage renal disease; Z99.2 Dependence on renal dialysis; J45.909 Unspecified asthma, uncomplicated; Z88.2 Allergy status to sulfonamides; B18.2 Chronic viral hepatitis C
CPT/HCPCS: 36415; 71045; 80053; 83880; 84484; 85025; 93005; 96374; 99283; U0002